=== PATIENT | male | born 1960 | race Asian ===

== ENCOUNTER 2023-07-11 08:05 | Inpatient (IN) | payer OTHER, SELFPAY ==
[2023-07-09 22:26] VITALS: BMI 29.3
[2023-07-09 22:36] VITALS: BP 178/108
[2023-07-09 22:40] LABS: Glucose - Point of Care 107 mg/dl (70-99)
[2023-07-09 22:53] VITALS: BP 155/89
[2023-07-09 23:00] VITALS: BP 143/87
[2023-07-09 23:00] LABS: % Basophils 0.5 % (0-2); % Eosinophils 1.6 % (0-6); % Immature Granulocytes 0.1 % (0-0.5); % Lymphocytes 32.7 % (20.5-51.1); % Monocytes 9.7 % (1.7-9.3); % Neutrophils 55.4 % (42.2-75.2); Absolute Eosinophils 0.1 10^3/uL (0-0.7); Absolute Lymphocytes 2.4 10^3/uL (1.2-3.4); Absolute Monocytes 0.7 10^3/uL (0.1-0.6); Absolute Neutrophils 4.1 10^3/uL (1.4-6.5); Hematocrit 46.7 % (39.0-52.0); Hemoglobin 15.8 g/dL (13.0-18.0); Mean Corp Hgb Conc. 33.8 g/dL (33.0-37.0); Mean Corpuscular Hgb 29.5 pg (27.0-31.0); Mean Corpuscular Volume 87.3 fL (80.0-94.0); Mean Platelet Volume 10.1 fL (7.4-10.4); Nucleated Red Blood Cells % 0 % (-); Platelet Count 258 10^3/uL (130-400); Red Blood Cell Count 5.35 10^6/uL (4.70-6.10); Red Cell Dist. Width 13.5 % (11.5-14.5); White Blood Cell Count 7.3 10^3/uL (4.8-10.8)
--- NOTE | 2023-07-09 23:06 | ED.CVA ---
History of Present Illness
General
Chief Complaint: CVA/TIA Symptoms
Source: patient
Exam Limitations: none
Time Seen by Provider: 07/09/23 22:31
Nursing documentation reviewed up to this point in time: agreed with
Onset of Stroke Symptoms
Onset of symptoms known: Yes
Date of onset of symptoms: 07/09/23
Time of onset of symptoms: 09:00
Travel History
Have you had any contact with someone who has COVID-19?: No
Do you have any symptoms of coronavirus? Fever > 100 degrees, chills, cough, shortness of breath, sore throat, loss of taste or smell, muscle aches, or headache?: No
History of Present Illness
History of Present Illness:
Patient with history of 'kidney problem', presents to ED after waking up this morning at 9 AM with right arm and right leg weakness. This evening, weakness appeared to worsen, per family. Of note, patient reportedly did not 'feel well' since
yesterday. Denies headache. Denies dizziness. Denies loss of sensation. Denies difficulty with speech. Denies difficulty with swallowing. Denies previous history of similar symptoms.
Review of Systems
Review of Systems
Allergies reviewed?: Yes
All Other Systems: ROS reviewed and negative except as documented in HPI and ROS
Constitutional: Reports no symptoms
EENT: Reports no symptoms
Respiratory: Reports no symptoms
Cardiac: Reports no symptoms
ABD/GI: Reports no symptoms
: Reports no symptoms
Musculoskeletal: Reports no symptoms
Skin: Reports no symptoms
Neurological: Reports weakness; Denies headache
Phy Exam
Physical Exam
Physical Exam:
Physical Exam
General: mild distress, not acutely ill. afebrile
Head: nc/at. eomi
Neck: supple. no meningeal signs.
Heart: s1/s2 regular rate and rhythm, no murmur. equal radial pulses.
Lungs: no acute respiratory distress. clear bilaterally
Abdomen: normal bowel sounds. not tender.
Neuro: alert and oriented. no focal sensory deficit. RUE/RLE motor: 4/5. normal speech.
Skin: no rash
Psychiatric: well kept. interactive and cooperative
Extremities: no edema. no calf tenderness.
Course
Orders/Labs/Results
Orders:
Orders
07/09/23 22:30
Electrocardiogram (*1) Urgent
Reason for Study: Other
Other Reason for Exam: Possible Stroke
Bedside Glucose- Treatment ONCE
Cardiac Monitoring- Treatment ONCE
EKG- Treatment ONCE
07/09/23 22:39
CT Head W/o Iv Contrast Urgent
Comment:
Reason For Exam: right UE/LE weakness
07/09/23 22:44
Complete Blood Count/With Diff Urgent
Comprehensive Metabolic Panel Urgent
PTT Urgent
Prothrombin Time Urgent
Troponin I Urgent
07/09/23 23:05
Aspirin Chewable [Low Strength Aspirin] 324 mg PO NOW STA
Clopidogrel Bisulfate [Plavix] 300 mg PO NOW STA
Abnormal Lab Results
07/09/23 07/09/23
22:37 22:44
Absolute Monos (auto) 0.7 H 10^3/uL
(0.1-0.6)
Monocytes % 9.7 H %
(1.7-9.3)
BUN 29 H mg/dl
(9-20)
Creatinine 1.8 H mg/dL
(0.7-1.3)
Glucose 113 H mg/dl
(70-99)
POC Glucose 107 H mg/dl
(70-99)
07/09/23 22:44
07/09/23 22:44
Vital Signs
Initial and Last Documented VS:
Initial Vital Signs
Temp Pulse Resp BP Pulse Ox
98.2 F 75 18 178/108 99
07/09/23 22:36 07/09/23 22:36 07/09/23 22:36 07/09/23 22:36 07/09/23 22:36
Last Documented Vital Signs
Temp Pulse Resp BP Pulse Ox
98.2 F 66 22 157/97 97
07/09/23 22:36 07/10/23 01:04 07/10/23 01:04 07/10/23 01:04 07/10/23 01:00
MDM/Problems Addressed
MDM/Problems Addressed:
CT head: NAD.
Discussed with (neurology) - agrees with plan for admission for further workup. Starting asa/plavix
CTA head/neck deferred due to CRI.
*Critical Care Note
Total Time (30-74mins, 75-104mins- exclusive of procedures): Not Applicable
ED Attending Note
-
Portions of this chart may have been created with voice recognition software.� Occasional wrong word or��sound alike� substitutions may have occurred due to the inherent limitations of voice recognition software.
Discharge Plan
Departure
Patient Disposition: Admit
Date of Disposition: 07/09/23
Time of Disposition: 23:22
Admit to: Telemetry
Presentation/result/management discussed w/ accepting MD/DO: Hospitalist
Discharge Problem:
Acute CVA (cerebrovascular accident)
Interventions
Interventions:
*Risk Screen - Suicide Last Done: 07/09/23 22:36
*General Assessment Last Done: 07/09/23 22:36
*Neglect/Abuse Screening Last Done: 07/09/23 22:36
ED- Fall Risk Assessment Last Done: 07/09/23 22:45
ED- Pulmonary Assessment Last Done: 07/09/23 22:45
ED- Neurological Assessment Last Done: 07/09/23 22:45
ED- Cardiac Assessment Last Done: 07/09/23 22:45
ED Swallowing Screen Last Done: 07/09/23 23:25
[2023-07-09 23:11] LABS: APTT 31.6 Sec (23.4-35.0)
[2023-07-09 23:15] LABS: ALT (SGPT) 22 U/L (0-50); AST (SGOT) 27 U/L (17-59); Albumin 4.5 g/dl (3.5-5.0); Alkaline Phosphatase 108 U/L (38-126); Blood Urea Nitrogen 29 mg/dl (9-20); Calcium 9.9 mg/dl (8.4-10.2); Carbon Dioxide 24 mmol/L (22-30); Chloride 105 mmol/L (98-107); Estimated Creatinine Clearance 35 ml/min; Glucose 113 mg/dl (70-99); Potassium 4.5 mmol/L (3.5-5.1); Sodium 140 mmol/L (135-145); Total Bilirubin 0.5 mg/dl (0.2-1.3); Total Protein 8.2 g/dl (6.3-8.2); eGFR 41.51
[2023-07-09 23:25] LABS: Troponin I < 0.012 ng/ml
[2023-07-09] MEDS: PLAVIX 300 MG PO (23:29)
[2023-07-09] MEDS: LOW STRENGTH ASPIRIN 324 MG PO (23:29)
--- NOTE | 2023-07-09 23:51 | HPS.HSE ---
Addendum entered and electronically signed by Terell Duval DO 07/10/23 01:02:
Patient seen and examined independently. Agree with findings and plan as set forth by Inocencia Gutiérrez PA-C.
Patient is a 63y M with PMH significant for hypertension who presents to ED complaining of R sided weakness. History obtained from patient and family at the bedside. Patient woke this AM with right-sided weakness. He noted weakness in the R
arm > R leg. His symptoms seemed to gradually improve throughout the day but then got worse again this evening prompting patient to present to the ED for further evaluation and treatment.
Patient has no prior history of TX, CVA, etc.
Ass:
Suspected CVA
Essential Hypertension
CKD
Plan:
Observe overnight for further evaluation and treatment.
Persistent R sided weakness evident on exam - especially in the RUE.
Continue DAPT.
Neuro evaluation in the AM.
MRI brain in the AM.
Follow for any changes in neurologic exam.
Original Note:
Family Physician
-
Family Physician: * NONE
Chief Complaint
-
Right Sided Weakness
History of Present Illness
This is a 63- year- male recently moved to the 7 months ago with a past medical history of hypertension who presented for CVA/ TIA symptoms X 1 day. He presents with daughter and son in law who provide majority of the history due to language
barrier. Family states that patient was 'feeling off' yesterday. Per son-in- law, patient woke up around 9 am this morning with right sided upper and lower extremity weakness. Son-in- law states that the weakness got better around the afternoon, but
progressed in the evening, prompting their visit to the ED. Patient's daughter denies any known history of TX or prior CVA.
Medical History
Past Medical History
Past Medical History: Reports Other
Additional Past Medical History:
Chronic Kidney Disease
Gout
Past Surgical History: Reports None
Social History
Tobacco: Former Smoker (Quit many years ago)
Family History
Family History: Not pertinent
Allergies / Home Medications
Allergies reflects when Allergies were last updated in [facility].
Home Medications with original date entered in [facility]
Allergy/Medication List:
Allergies
Allergy/AdvReac Type Severity Reaction Status Date / Time
No Known Allergies Allergy Verified 07/09/23 23:10
Home Medications
calcitriol 0.25 mcg capsule 0.25 mcg PO DAILY 07/09/23
calcium carbonate 500 mg-vitamin D3 5 mcg (200 unit) tablet (Calcium 500 + D) 1 tab PO DAILY 07/09/23
febuxostat 40 mg tablet 40 mg PO DAILY 07/09/23
telmisartan 40 mg-amlodipine 5 mg tablet 1 tab PO DAILY 07/09/23
Review of Systems
-
Unable to obtain full review of systems at this time due to: Language Barrier
Physical Exam
Vital Signs
Vital Signs
Temp Pulse Resp BP Pulse Ox
98.2 F 71 15 143/87 96
07/09/23 22:36 07/09/23 23:30 07/09/23 23:30 07/09/23 23:00 07/09/23 23:30
Physical Exam
General: Comfortable and Conversant
HEENT: Anicteric and Moist mucous membranes
Respiratory: Clear and Non Labored Respirations
Cardiac: S1/S2 and Regular Rhythm
GI: Soft and Non Tender
Musculoskeletal: No Clubbing, No Cyanosis and No Edema
Skin: Warm and Dry
Neuro: Awake, Alert and Other (4/5 Strength Right Upper Extremity); No Facial Droop
Psych: Calm
Laboratory Results
-
07/09/23 22:44
07/09/23 22:44
Laboratory Results
PT 13.0 Sec (11.4-14.6) 07/09/23:44
INR 1.00 07/09/23:
APTT 31.6 Sec (23.4-35.0) 07/09/23:
Total Bilirubin 0.5 mg/dl (0.2-1.3) 07/09/23:44
AST 27 U/L (17-59) 07/09/23:44
ALT 22 U/L (0-50) 07/09/23:44
Alkaline Phosphatase 108 U/L (38-126) 07/09/23:44
Troponin I < 0.012 ng/ml 07/09/23:44
Data Reviewed
-
CT Scan: Report Reviewed by me
Lab Data: Labs Reviewed by me
Impression/Plan
-
Right Sided Weakness, concerning for Acute Stroke
-Consult Neurology
-Continue aspirin and Plavix
-Monitor Neurochecks
-Check Brain MRI with Head/Neck MRA
-Check FLP and HgbA1c
-Consult PT/OT
Essential Hypertension
-Allow for permissive hypertension tonight, then goal for normotension starting tomorrow morning
-Continue telmisartan/amlodipine
Chronic Kidney Disease, suspect creatinine at baseline
-Recheck labs in AM
DVT proph: SCDs
Code Status: Full Code
[2023-07-10] VITALS (13 sets, daily range): BP systolic 99–167; BP diastolic 69–101; PULSE 82–84; BMI 25.0
[2023-07-10 05:43] LABS: Hemoglobin 14.2 g/dL (13.0-18.0); Mean Corp Hgb Conc. 33.8 g/dL (33.0-37.0); Mean Corpuscular Hgb 29.5 pg (27.0-31.0); Mean Corpuscular Volume 87.1 fL (80.0-94.0); Mean Platelet Volume 9.9 fL (7.4-10.4); Platelet Count 243 10^3/uL (130-400); Red Blood Cell Count 4.82 10^6/uL (4.70-6.10); Red Cell Dist. Width 13.4 % (11.5-14.5); White Blood Cell Count 8.1 10^3/uL (4.8-10.8)
[2023-07-10 05:58] LABS: Blood Urea Nitrogen 30 mg/dl (9-20); Calcium 9.4 mg/dl (8.4-10.2); Carbon Dioxide 25 mmol/L (22-30); Chloride 107 mmol/L (98-107); Estimated Creatinine Clearance 35 ml/min; Glucose 110 mg/dl (70-99); HDL Cholesterol 37 mg/dl; LDL Cholesterol, Calculated 168 mg/dl; Magnesium 2.1 mg/dl (1.6-2.3); Potassium 4.2 mmol/L (3.5-5.1); Sodium 140 mmol/L (135-145); Total Cholesterol 253 mg/dl (50-199); Triglyceride 244 mg/dl (10-149); Very Low Density Lipoprotein 48 mg/dl (0-30); eGFR 41.51
[2023-07-10] MEDS: ROCALTROL 0.25 MCG PO (08:27)
[2023-07-10] MEDS: LOW STRENGTH ASPIRIN 81 MG PO (08:27)
[2023-07-10] MEDS: PLAVIX 75 MG PO (08:28)
[2023-07-10] MEDS: ULORIC 40 MG PO (08:28)
[2023-07-10] MEDS: NORVASC 5 MG PO (08:29)
[2023-07-10] MEDS: COZAAR 50 MG PO (08:30)
[2023-07-10] MEDS: TYLENOL 650 MG PO (08:34)
--- NOTE | 2023-07-10 08:44 | CON.NEURO4 ---
Addendum entered and electronically signed by Ravin Carpio MD 07/10/23 15:21:
Studies reviewed.
I have personally examined the patient. I reviewed and agree with the VENDING MACHINE SERVICER's Note.
My addenda:
Awake, alert, interactive. No acute distress.
Speech intact.
Follows 2-step requests w/o difficulty. No tremor.
Extra-ocular movements grossly intact.
Facial movements full and symmetric. Hearing intact to normal conversational volume.
Neck: full ROM.
Chest: no dyspnea
Heart: no JVD
Ext: (-) Clubbing, (-) Cyanosis, (-) Edema
IMPRESSIONS/RECOMMENDATIONS:
Abrupt onset of neck pain with right upper and right lower extremity weakness and discomfort
Differential diagnosis includes mass lesion at the cervical level of the spine, transverse myelitis, hemicord ischemic injury, stroke in the left MCA territory
Check MRI of the cervical spine, today, with and without contrast
Check MRI of the brain without contrast
Rehabilitation evaluations
Consider additional vascular testing based on the above results
Goal of normotension as symptomatology began more than 24 hours ago
Provide cholesterol-lowering agent due to the patient's elevated cholesterol
D/W patient
All questions answered.
Will continue to follow patient.
Original Note:
Documented by User: Clara Barajas NP 07/10/23 12:33
Consultation - Neurology 4
-
CONSULTING PHYSICIAN: Ravin Carpio MD
REFERRING PHYSICIAN: Hospitalists/Inocencia Gutiérrez
DICTATED BY: ELIDA Barnard
DATE/TIME OF REQUEST: 07/09/23
DATE/TIME OF CONSULTATION: 07/10/23
Reason for Consultation: Right-sided weakness
History of Present Illness:
This is a 63-year-old right-handed male who has presented to the hospital on 07/09/23 with report of right-sided weakness. Patient's primary language is Etta and video geoscience professor was used for this interview. Patient reports that about 4-5 days ago
he developed right lower posterior neck pain and right shoulder pain that radiated down his entire arm and then down his RLE after several minutes. He describes the pain as an aching and rates it a 4-5/10. He reports having right-sided weakness
since the onset of this pain. The weakness has been fluctuating in severity since onset. His symptoms had improved during the day yesterday but then worsened again last evening, prompting his family to bring him to the ER for evaluation. CT head was
obtained on arrival to the ER and is negative for any acute abnormalities. NIHSS is a 2 for RUE drift and mild sensation change. He was not a candidate for TNK/IAT due to being outside of the time window. He was loaded with DAPT in the ER.
Currently, patient's symptoms are persistent, his biggest complaint is his neck and right-sided pain. He denies any headache, dizziness, vision changes, speech/swallow difficulty, bowel/bladder changes, nausea, chest pain, palpitations, and
shortness of breath. He denies any history of head/neck trauma or pain/weakness like this in the past. He denies any history of TIA and stroke and he is not taking any blood thinning medications.
Past Medical History: HTN, CKD, gout
Surgical History: Denies.
Family History: Reviewed and noncontributory.
Social History: Former tobacco. Denies alcohol and illicit drug use.
Allergies: No known allergies.
Home Medications: See below.
Review of Symptoms:
Patient denies any fever, headache, chest pain, shortness of breath, GI or symptoms.
�Per the HPI.�All systems are reviewed negative except above.
Physical Exam:
The patient is afebrile, abdomen is nondistended, breathing is unlabored, skin is warm and dry, no edema. Clubbing in fingertips
NIH Stroke Scale:
I performed the NIH stroke scale on the patient on 07/10/23 at 0900. The patient scored 2 points on the NIH stroke scale assessment, which were assigned as follows: See below.
Neurologic Examination:
The patient is awake, alert and oriented x 3. He is able to follow commands and answer questions appropriately. There is no aphasia or dysarthria. On cranial nerve assessment, pupils are 3 mm bilateral, round and reactive to light and
accommodation. Mild arcus senilis. Visual stubbs are full. Extraocular movements are intact. Facial sensations are intact and bilaterally symmetrical, there is no facial asymmetry. Hearing is intact bilaterally to normal conversation volume. Tongue
palate and uvula are midline. Motor strengths are 4+/5 RUE, 5/5 LUE, and 4+/5 BLE on medical research [place] scale. There is downward drift in RUE. No involuntary movement noted. Deep tendon reflexes are 2+ bilateral upper and 2+ right patellar, 3+
LLE and one beat of clonus in bilateral Achilles. Babinski is absent bilaterally. Sensations of temperature and pain is mildly reduced in distal bilateral lower extremities. Sensation of pain is mildly reduced in distal RUE. Pain is greater in R
face than L face. Vibration is intact and bilaterally symmetrical. Negative Mahoney's sign. There was no extinction noted on double simultaneous stimulation. Coordination is intact by finger to nose bilaterally.
Lab Results: See below.
Neuro Imaging:
1. CT Head 07/09/23: There is no acute intracranial process. Low-lying cerebellar tonsils.
Differentials for the patient's presentation include:
1. Concern for structural cervical spine abnormality producing pain and weakness especially given hyperreflexia noted on examination.
2. Lower concern for CVA producing symptoms but this is possible.
3. New diagnosis NIDDM.
Patient has the following risk factors for their symptoms: neck pain
IV Tenecteplase/IAT candidacy: He was not a candidate for TNK/IAT due to being outside of the time window.
Recommendations:
-MRI cervical spine w/ and w/o contrast urgent, pending.
-MRI brain noncontrast pending.
-MRA head/neck discontinued for now, will re-order if MRI brain demonstrates a stroke.
-Initiate pregabalin 25mg BID for pain relief.
-Goal normotension.
-Goal normoglycemia, hbA1c is 6.8.
-LDL goal <70. LDL is 168. Atorvastatin 80mg initiated.
-NIHSS and neurological checks per unit guidelines.
-Provide patient with a stroke education packet.
-PT/OT/ST evaluations.
-DVT prophylaxis.
-Will follow pending results.
Discussed patient care with: Dr. Carpio, the patient
Vital Signs and Labs
-
Vital Signs and Labs:
Vital Signs
Temp Pulse Resp BP Pulse Ox
97.7 F 67 12 119/91 97
07/10/23 07:15 07/10/23 08:30 07/10/23 08:15 07/10/23 08:30 07/10/23 08:15
Lab Results
07/10/23 05:24
07/10/23 05:24
PT 13.0 Sec (11.4-14.6) 07/09/23 22:44
INR 1.00 07/09/23 22:44
APTT 31.6 Sec (23.4-35.0) 07/09/23 22:44
Sodium 140 mmol/L (135-145) 07/10/23 05:24
Potassium 4.2 mmol/L (3.5-5.1) 07/10/23 05:24
BUN 30 mg/dl (9-20) H 07/10/23 05:24
Glucose 110 mg/dl (70-99) H 07/10/23 05:24
Calcium 9.4 mg/dl (8.4-10.2) 07/10/23 05:24
LDL Cholesterol, Calc 168 mg/dl 07/10/23 05:24
Medications
-
Active Medications
Generic Name Dose Route Start Last Admin
Trade Name Freq PRN Reason Stop Dose Admin
Acetaminophen 650 mg 07/10/23 00:43
Acetaminophen 650 Mg Rectal Suppository RECTAL 08/07/23 00:42
Q4HPRN PRN
ESCOBAR, mild pain, or temp >100.4F
Acetaminophen 650 mg 07/10/23 00:43 07/10/23 08:34
Acetaminophen 325 Mg Tablet PO 08/07/23 00:42 650 mg
Q4HPRN PRN Administration
ESCOBAR, mild pain, or temp >100.4F
Amlodipine Besylate 5 mg 07/10/23 08:00 07/10/23 08:29
Amlodipine 5 Mg Tablet PO 08/07/23 07:59 5 mg
DAILY PILY Administration
Aspirin 81 mg 07/10/23 08:00 07/10/23 08:27
Aspirin 81 Mg Chewable Tablet PO 08/07/23 07:59 81 mg
DAILY PILY Administration
Atorvastatin Calcium 80 mg 07/10/23 18:00
Atorvastatin (Lipitor) 40 Mg Tablet PO 08/07/23 17:59
QPM PILY
Calcitriol 0.25 mcg 07/10/23 08:00 07/10/23 08:27
Calcitriol 0.25 Microgram Capsule PO 08/07/23 07:59 0.25 mcg
DAILY PILY Administration
Clopidogrel Bisulfate 75 mg 07/10/23 08:00 07/10/23 08:28
Clopidogrel 75 Mg Tablet PO 08/07/23 07:59 75 mg
DAILY PILY Administration
Febuxostat 40 mg 07/10/23 08:00 07/10/23 08:28
Febuxostat (Non-Form) 40 Mg Tablet PO 08/07/23 07:59 40 mg
DAILY PILY Administration
Losartan Potassium 50 mg 07/10/23 08:00 07/10/23 08:30
Losartan 50 Mg Tablet PO 08/07/23 07:59 50 mg
DAILY PILY Administration
Sodium Chloride 0 flush 07/10/23 01:00
Sodium Chloride 0.9% (Flush) Syringe IV 08/07/23 00:59
PER PROTOCOL PILY
Home Medications
�Medication �Instructions �Recorded
calcitriol 0.25 mcg capsule 0.25 mcg PO DAILY 07/09/23
calcium carbonate 500 mg-vitamin 1 tab PO DAILY 07/09/23
D3 5 mcg (200 unit) tablet
(Calcium 500 + D)
febuxostat 40 mg tablet 40 mg PO DAILY 07/09/23
telmisartan 40 mg-amlodipine 5 mg 1 tab PO DAILY 07/09/23
tablet
NIH Stroke Score
Subsequent NIH Scale
Date of Subsequent NIH Scale: 07/10/23
Time of Subsequent NIH Scale: 09:00
NIH Stroke Score
Level of Consciousness: 0 - Alert
LOC Questions: 0-Answers both correctly
LOC Commands: 0-Performs both correctly
Best Horizontal Gaze: 0-Normal
Visual Stubbs: 0=Normal, no visual loss
Facial Palsy: 0=Normal, symmetrical
Motor - Right Arm: 1=Drift < 10 seconds
Motor - Left Arm: 0=No drift 10 seconds
Motor - Right Le-No drift 5 seconds
Motor - Left Le-No drift 5 seconds
Limb Ataxia: 0-Absent
Sensation: 1-Mild loss
Best Language: 0-No aphasia
Dysarthria: 0-Normal
Extinction and Inattention: 0-No abnormality
Total Score:: 2

Documented by User: Ravin Carpio MD 07/10/23 15:17
Consultation - Neurology 4
-
CONSULTING PHYSICIAN: Ravin Carpio MD
REFERRING PHYSICIAN: Hospitalists/Inocencia Gutiérrez
DICTATED BY: ELIDA Barnard
DATE/TIME OF REQUEST: 07/09/23
DATE/TIME OF CONSULTATION: 07/10/23
Reason for Consultation: Right-sided weakness
History of Present Illness:
This is a 63-year-old right-handed male who has presented to the hospital on 07/09/23 with report of right-sided weakness. Patient's primary language is Etta and video geoscience professor was used for this interview. Patient reports that about 4-5 days ago
he developed right lower posterior neck pain and right shoulder pain that radiated down his entire arm and then down his RLE after several minutes. He describes the pain as an aching and rates it a 4-5/10. He reports having right-sided weakness
since the onset of this pain. The weakness has been fluctuating in severity since onset. His symptoms had improved during the day yesterday but then worsened again last evening, prompting his family to bring him to the ER for evaluation. CT head was
obtained on arrival to the ER and is negative for any acute abnormalities. NIHSS is a 2 for RUE drift and mild sensation change. He was not a candidate for TNK/IAT due to being outside of the time window. He was loaded with DAPT in the ER.
Currently, patient's symptoms are persistent, his biggest complaint is his neck and right-sided pain. He denies any headache, dizziness, vision changes, speech/swallow difficulty, bowel/bladder changes, nausea, chest pain, palpitations, and
shortness of breath. He denies any history of head/neck trauma or pain/weakness like this in the past. He denies any history of TIA and stroke and he is not taking any blood thinning medications.
Past Medical History: HTN, CKD, gout
Surgical History: Denies.
Family History: Reviewed and noncontributory.
Social History: Former tobacco. Denies alcohol and illicit drug use.
Allergies: No known allergies.
Home Medications: See below.
Review of Symptoms:
Patient denies any fever, headache, chest pain, shortness of breath, GI or symptoms.
�Per the HPI.�All systems are reviewed negative except above.
Physical Exam:
The patient is afebrile, abdomen is nondistended, breathing is unlabored, skin is warm and dry, no edema. Clubbing in fingertips
NIH Stroke Scale:
I performed the NIH stroke scale on the patient on 07/10/23 at 0900. The patient scored 2 points on the NIH stroke scale assessment, which were assigned as follows: See below.
Neurologic Examination:
The patient is awake, alert and oriented x 3. He is able to follow commands and answer questions appropriately. There is no aphasia or dysarthria. On cranial nerve assessment, pupils are 3 mm bilateral, round and reactive to light and
accommodation. Mild arcus senilis. Visual stubbs are full. Extraocular movements are intact. Facial sensations are intact and bilaterally symmetrical, there is no facial asymmetry. Hearing is intact bilaterally to normal conversation volume. Tongue
palate and uvula are midline. Motor strengths are 4+/5 RUE, 5/5 LUE, and 4+/5 BLE on medical research [place] scale. There is downward drift in RUE. No involuntary movement noted. Deep tendon reflexes are 2+ bilateral upper and 2+ right patellar, 3+
LLE and one beat of clonus in bilateral Achilles. Babinski is absent bilaterally. Sensations of temperature and pain is mildly reduced in distal bilateral lower extremities. Sensation of pain is mildly reduced in distal RUE. Pain is greater in R
face than L face. Vibration is intact and bilaterally symmetrical. Negative Mahoney's sign. There was no extinction noted on double simultaneous stimulation. Coordination is intact by finger to nose bilaterally.
Lab Results: See below.
Neuro Imaging:
1. CT Head 07/09/23: There is no acute intracranial process. Low-lying cerebellar tonsils.
Differentials for the patient's presentation include:
1. Concern for structural cervical spine abnormality producing pain and weakness especially given hyperreflexia noted on examination.
2. Lower concern for CVA producing symptoms but this is possible.
3. New diagnosis NIDDM.
Patient has the following risk factors for their symptoms: neck pain
IV Tenecteplase/IAT candidacy: He was not a candidate for TNK/IAT due to being outside of the time window.
Recommendations:
-MRI cervical spine w/ and w/o contrast urgent, pending.
-MRI brain noncontrast pending.
-MRA head/neck discontinued for now, will re-order if MRI brain demonstrates a stroke.
-Initiate pregabalin 25mg BID for pain relief.
-Goal normotension.
-Goal normoglycemia, hbA1c is 6.8.
-LDL goal <70. LDL is 168. Atorvastatin 80mg initiated.
-NIHSS and neurological checks per unit guidelines.
-Provide patient with a stroke education packet.
-PT/OT/ST evaluations.
-DVT prophylaxis.
-Will follow pending results.
Discussed patient care with: Dr. Carpio, the patient
NIH Stroke Score
NIH Stroke Score
Total Score:: 2
--- NOTE | 2023-07-10 09:43 | PTOTSP ---
Dysphagia Evaluation
Oral and pharyngeal stages of swallowing grossly WFL for consistencies assessed this date. No signs of aspiration observed.
Recommend:
1. Regular, Thin Liquids
2. Medications as best tolerated
3. General aspiration precautions
4. Complete cognitive linguistic screen as appropriate pending results of neurological work up.
[2023-07-10 10:09] LABS: Glycohemoglobin (HgbA1c) 6.8 % (4.0-5.6)
[2023-07-10] MEDS: LYRICA 25 MG PO ×2 (11:10→20:53)
--- NOTE | 2023-07-10 12:59 | W.PN.HOSP.TC ---
Today's Communication/Plan
-
await MRI imaging
diabetic education and start Metformin
Assessment / Plan
Assessment / Plan
Assessment:
RUE weakness, neck pain
- urgent C spine MRI
- MRI brain
- consider MRA imaging if MRI brain positive for CVA
- continue DAPT for now
- Lyrica 25mg BID for pain relief
- HbA1c is 6.8% (see below)
- LDL is 168; statin added
- neuro checks
- therapy evals recommend acute rehab, PMR consulted
New diagnosed type 2 DM
- dietary eval and staff development educator
- add SSI
- add Metformin renally dosed
Essential Hypertension
- continue telmisartan/amlodipine
Chronic Kidney Disease, stage 3B. suspect creatinine at baseline
- monitor BMP
DVT ppx: SCDs
Code: Full
Anticipated Discharge: 24 - 48 hours
Subjective/Interval History
-
Date of Service: July 10, 2023
currently complaints of R sided weakness along with lower posterior neck pain and shoulder pain 4-5 days ago
No other complaints
Objective Data
-
Labs:
Laboratory Results
07/10/23
05:24
WBC 8.1
Hgb 14.2
Hct 42.0
Plt Count 243
Sodium 140
Potassium 4.2
Chloride 107
Carbon Dioxide 25
BUN 30 H
Creatinine 1.8 H
Glucose 110 H
Calcium 9.4
Vital Signs:
Vital Signs
Temp Pulse Resp BP Pulse Ox
97.7 F 89 18 119/91 96
07/10/23 11:26 07/10/23 11:26 07/10/23 11:26 07/10/23 08:30 07/10/23 11:26
I&O
07/09/23 07/10/23 07/11/23
06:59 06:59 06:59
Intake Total 470 / 470
Balance 470 / 470
Physical Exam
-
General: No Apparent Distress
HEENT: Normocephalic and Atraumatic
Respiratory: Negative Wheezes
Cardiac: Regular Rhythm and S1/S2
GI: Soft and Nontender
Genito-urinary: No Costovertebral Tender
Musculoskeletal: Other
Neuro: AO x 3 and Other (Motor strengths are 4+/5 RUE, 5/5 LUE, and 4+/5 BLE)
Hematologic / Lymphatic: No Lymphadenopathy
Psych: Calm
Data Reviewed
-
Total Time Spent with Patient (in minutes): 42
Labs: Labs Reviewed by me
--- NOTE | 2023-07-10 16:08 | PTCARENOTE ---
report called to RICHARDSON Brown on . PT being picked up by ED RICHARDSON Loo and being to be transported to floor from MRI.
[2023-07-10 16:54] LABS: Glucose - Point of Care 104 mg/dl (70-99)
[2023-07-10] MEDS: NOVOLOG FLEXPEN-LOW RESISTANCE SC (17:02)
[2023-07-10] MEDS: LIPITOR 80 MG PO (17:15)
[2023-07-10] MEDS: GLUCOPHAGE 500 MG PO (17:15)
--- NOTE | 2023-07-10 20:00 | PTCARENOTE ---
Pt's daughter wants to be notify concerning pt condition and discharge plan by MD.
[2023-07-10 21:16] LABS: Glucose - Point of Care 112 mg/dl (70-99)
[2023-07-11 03:22] VITALS: BP 106/77
[2023-07-11 07:24] LABS: Hemoglobin 14.6 g/dL (13.0-18.0); Mean Corp Hgb Conc. 33.2 g/dL (33.0-37.0); Mean Corpuscular Hgb 29.3 pg (27.0-31.0); Mean Corpuscular Volume 88.4 fL (80.0-94.0); Platelet Count 254 10^3/uL (130-400); Red Blood Cell Count 4.98 10^6/uL (4.70-6.10); Red Cell Dist. Width 13.6 % (11.5-14.5); White Blood Cell Count 7.4 10^3/uL (4.8-10.8)
[2023-07-11 07:45] LABS: Blood Urea Nitrogen 40 mg/dl (9-20); Calcium 9.6 mg/dl (8.4-10.2); Carbon Dioxide 23 mmol/L (22-30); Chloride 104 mmol/L (98-107); Estimated Creatinine Clearance 28 ml/min; Glucose 123 mg/dl (70-99); Potassium 4.4 mmol/L (3.5-5.1); Sodium 139 mmol/L (135-145); eGFR 29.39
[2023-07-11 08:20] VITALS: BP 141/89
--- NOTE | 2023-07-11 08:42 | W.PN.HOSP.TC ---
Today's Communication/Plan
-
MRA studies and echo
cards eval for implantable monitor
continue DAPT
continue MFM; diabetic education
ANNA w/u, hold ARB, IVF, repeat AM labs
rehab evaluations, PMR eval
Assessment / Plan
Assessment / Plan
Assessment:
RUE weakness
- MRI brain: MANY ACUTE ISCHEMIC INFARCTS in the LEFT CEREBRAL HEMISPHERE MIDDLE CEREBRAL ARTERY TERRITORY involving cortical roper matter in the left frontal lobe, left parietal lobe, and superior left occipital lobe (including a 2.5 cm acute
ischemic infarct in the left frontal lobe precentral gyrus). Mild to moderate white matter leukoaraiosis in the frontal and parietal lobes. Mild paranasal sinus mucosal disease.
- MRA imaging pending
- Echo pending
- continue Aspirin/Plavix
- HbA1c is 6.8% (see below)
- LDL is 168; statin added
- neuro checks
- therapy evals recommend acute rehab, PMR consulted
- Neurology following
- Cardiology consulted for evaluation of implantable monitor
Neck pain
- MRI C spine: MODERATE-SIZED MULTILEVEL DISC HERNIATIONS throughout the cervical spine. MODERATE SPINAL CORD COMPRESSION and CENTRAL CANAL STENOSIS at C3/C4, C4/C5, and C5/C6. Mild spinal cord compression and central canal stenosis at C2/C3.
Moderate discogenic degenerative disease at C5/C6. Severe right neural foraminal narrowing at C5/C6. Large 2.4 cm left lobe thyroid nodule.
- Lyrica 25mg BID for pain relief
- discussed results with Neurosurgery; they will evaluate patient outpatient as cannot consider surgery currently with acute CVA.
New diagnosed type 2 DM
- dietary eval and consumer educator
- continue SSI
- add Metformin renally dosed
Essential Hypertension
- continue amlodipine
- hold ARB with ANNA
ANNA on CKD, stage 3B
- monitor BMP; no baseline labs available
- bladder scan/SC protocol
- check UA, lytes
- hold ARB
- IVF added
DVT ppx: SCDs
Code: Full
d/w daughter and updated
Anticipated Discharge: 24 - 48 hours
Subjective/Interval History
-
Date of Service: July 11, 2023
found to have new acute CVA on MRI
Objective Data
-
Labs:
Laboratory Results
07/11/23
06:33
WBC 7.4
Hgb 14.6
Hct 44.0
Plt Count 254
Sodium 139
Potassium 4.4
Chloride 104
Carbon Dioxide 23
BUN 40 H
Creatinine 2.4 H
Glucose 123 H
Calcium 9.6
Vital Signs:
Vital Signs
Temp Pulse Resp BP Pulse Ox
97.7 F 75 18 141/89 97
07/11/23 08:20 07/11/23 08:20 07/11/23 08:20 07/11/23 08:20 07/11/23 08:20
I&O
07/10/23 07/11/23 07/12/23
06:59 06:59 06:59
Intake Total 910 / 910
Balance 910 / 910
Physical Exam
-
General: No Apparent Distress
HEENT: Normocephalic and Atraumatic
Respiratory: Negative Wheezes
Cardiac: Regular Rhythm
GI: Soft
Genito-urinary: No Costovertebral Tender
Neuro: AO x 3 and Other (RUE 4/5)
Data Reviewed
-
Total Time Spent with Patient (in minutes): 45
Labs: Labs Reviewed by me
[2023-07-11 08:50] LABS: Glucose - Point of Care 111 mg/dl (70-99)
[2023-07-11] MEDS: NOVOLOG FLEXPEN-LOW RESISTANCE SC ×3 (08:50→17:09)
[2023-07-11] MEDS: LOW STRENGTH ASPIRIN 81 MG PO (09:16)
[2023-07-11] MEDS: ROCALTROL 0.25 MCG PO (09:16)
[2023-07-11] MEDS: NORVASC 5 MG PO (09:16)
[2023-07-11] MEDS: COZAAR PO (09:17)
[2023-07-11] MEDS: ULORIC 40 MG PO (09:18)
[2023-07-11] MEDS: PLAVIX 75 MG PO (09:18)
[2023-07-11] MEDS: LYRICA 25 MG PO ×2 (09:19→19:44)
[2023-07-11] MEDS: LIDOCAINE 4% PATCH 1 PATCH TOPICAL (09:21)
[2023-07-11] MEDS: NSS 1000 IV (09:27)
--- NOTE | 2023-07-11 09:53 | W.PN.NEURO.1 ---
Today's Communication / Plan
-
Provide combination of aspirin and clopidogrel with resolution of the use of clopidogrel after 21 days, then aspirin alone, of note is that the patient is on day 5 of symptom onset
Continue newly started atorvastatin
Rehabilitation evaluations
Goal of normotension
Workup of the patient's renal insufficiency may be beneficial
Check MRA head and neck
Provide educational materials
DVT prophylaxis is necessary
Neuro Assessment/Plan
Assessment
Abrupt onset of neck pain with right upper and right lower extremity weakness and discomfort
Secondary to subacute ischemic stroke in the left MCA territory as demonstrated by MRI of brain
MRI of the cervical spine demonstrated no structural abnormalities producing symptomatology
Plan
Recommendations:
Provide combination of aspirin and clopidogrel with resolution of the use of clopidogrel after 21 days, then aspirin alone, of note is that the patient is on day 5 of symptom onset
Continue newly started atorvastatin
Rehabilitation evaluations
Goal of normotension
Workup of the patient's renal insufficiency may be beneficial
Check MRA head and neck
Provide educational materials
DVT prophylaxis is necessary
Will follow pending results. Please contact us with additional questions or issues.
Subjective/Objective
Subjective Data
Date of Service: July 11, 2023
Patient noted improvement in right upper and right lower extremity weakness
Objective Data
Vital Signs
Temp Pulse Resp BP Pulse Ox
36.5 C 75 18 141/89 97
07/11/23 08:20 07/11/23 09:16 07/11/23 08:20 07/11/23 09:16 07/11/23 08:20
Lab Results
07/11/23 06:33
07/11/23 06:33
PT 13.0 Sec (11.4-14.6) 07/09/23 22:44
INR 1.00 07/09/23 22:44
APTT 31.6 Sec (23.4-35.0) 07/09/23 22:44
Sodium 139 mmol/L (135-145) 07/11/23 06:33
Potassium 4.4 mmol/L (3.5-5.1) 07/11/23 06:33
BUN 40 mg/dl (9-20) H 07/11/23 06:33
Glucose 123 mg/dl (70-99) H 07/11/23 06:33
Calcium 9.6 mg/dl (8.4-10.2) 07/11/23 06:33
LDL Cholesterol, Calc 168 mg/dl 07/10/23 05:24
Patient Allergies
No Known Allergies Allergy (Verified 07/09/23 23:10)
Review of Systems
-
Unable to obtain full review of systems at this time due to: Language Barrier
History Source: Patient
All other systems: Reviewed and negative
Musculoskeletal: Neck Pain
Physical Exam
-
General: No Apparent Distress and Appears Stated Age
Eyes: Round OU, Loop Conjunctivae and No Ptosis
HEENT: Anicteric and Moist Mucous Membranes
Neck: Full Range of Motion
Respiratory: No Dyspnea
Cardiac: No JVD
GI: Non-distended
Skin: Unremarkable
Extremities: No Clubbing, No Cyanosis and No Edema
Psych: Intact Judgement/Insight
Extended Neurological Exam
Mood & Affect: Mood Unremarkable and Affect Unremarkable
Attention Span & Concentration: Awake, Alert, Interactive and No Difficulty with 2 Step Request
Memory: Unremarkable
Tremor: Hand Tremor Absent and Head Tremor Absent
Speech: Quality Unremarkable and Quantity Unremarkable
Cranial Nerve II: Left Eye: Pupillary Size Unremarkable and Visual Klein Grossly Intact
Cranial Nerve II: Right Eye: Pupillary Size Unremarkable and Visual Klein Grossly Intact
Cranial Nerves III, IV, : Extraocular Movement: Grossly Intact
Cranial Nerve VII: Facial Symmetry: Normal Facial Symmetry
Cranial Nerve VIII: Hearing: Unremarkable Hearing to Normal Conversational Volume
Muscle Strength, Overall: Reduced on Right (Upper extremity 5- out of 5, right lower extremity 5- out of 5)
Muscle Bulk & Tone: Bulk Unremarkable and Tone Unremarkable
Pronator Drift: No Drift in Upper Extremities
Coordination: [id number] Testing Unremarkable
Gait & Station: Unable to Assess
Data Reviewed
-
MRI Head: Report Reviewed and Image Reviewed
Labs: Report Reviewed
Reviewed with: Physician, Nurse Practioner and Patient
Old Records: Summarized
Past History
Past History
ED Past Medical History: CVA; Negative Renal failure (Renal insufficiency)
Social History
Tobacco: Non-smoker
Alcohol: None
Family History
Family History: Other (Reviewed and noncontributory)
Medications
-
Medications:
Generic Name Dose Route Start Last Admin
Trade Name Freq PRN Reason Stop Dose Admin
Acetaminophen 650 mg 07/10/23 00:43 07/10/23 08:34
Acetaminophen 325 Mg Tablet PO 08/07/23 00:42 650 mg
Q4HPRN PRN Administration
ESCOBAR, mild pain, or temp >100.4F
Amlodipine Besylate 5 mg 07/10/23 08:00 07/11/23 09:16
Amlodipine 5 Mg Tablet PO 08/07/23 07:59 5 mg
DAILY PILY Administration
Aspirin 81 mg 07/10/23 08:00 07/11/23 09:16
Aspirin 81 Mg Chewable Tablet PO 08/07/23 07:59 81 mg
DAILY PILY Administration
Atorvastatin Calcium 80 mg 07/10/23 18:00 07/10/23 17:15
Atorvastatin (Lipitor) 40 Mg Tablet PO 08/07/23 17:59 80 mg
QPM PILY Administration
Calcitriol 0.25 mcg 07/10/23 08:00 07/11/23 09:16
Calcitriol 0.25 Microgram Capsule PO 08/07/23 07:59 0.25 mcg
DAILY PILY Administration
Clopidogrel Bisulfate 75 mg 07/10/23 08:00 07/11/23 09:18
Clopidogrel 75 Mg Tablet PO 08/07/23 07:59 75 mg
DAILY PILY Administration
Dextrose 12.5 grams 07/10/23 13:06
Dextrose 50% (0.5 Grams/Ml) 50 Ml Syringe IV 08/07/23 13:05
[id number] PRN
hypoglycemia
Protocol
Febuxostat 40 mg 07/10/23 08:00 07/11/23 09:18
Febuxostat (Non-Form) 40 Mg Tablet PO 08/07/23 07:59 40 mg
DAILY PILY Administration
Glucagon 1 mg 07/10/23 13:06
Glucagon 1 Mg Vial IM 08/07/23 13:05
PRN PRN
hypoglycemia
Protocol
Sodium Chloride 1,000 mls @ 70 mls/hr 07/11/23 08:15 07/11/23 09:27
Nss IV 07/11/23 22:32 1,000 mls
.[id number] PILY Administration
Insulin Aspart 0 units 07/10/23 16:30 07/11/23 08:50
Insulin Aspart Low Resistance 300 Units/3 Ml Pen.Injctr SC 08/07/23 16:29 Not Given
AC PILY
Protocol
Lidocaine 1 patch 07/11/23 08:00 07/11/23 09:21
Lidocaine 4% Topical Patch TOPICAL 08/08/23 07:59 1 patch
DAILY PILY Administration
Losartan Potassium 50 mg 07/10/23 08:00 07/11/23 09:17
Losartan 50 Mg Tablet PO 08/07/23 07:59 Not Given
DAILY PILY
Metformin HCl 500 mg 07/10/23 18:00 07/10/23 17:15
Metformin 500 Mg Regular Release Tablet PO 08/07/23 17:59 500 mg
QPM PILY Administration
Patch Removal 0 patch 07/11/23 20:00
Remove Lidocaine Patch REMOVE 08/08/23 19:59
DAILY@2000 PILY
Pregabalin 25 mg 07/10/23 11:00 07/11/23 09:19
Pregabalin 25 Mg Capsule PO 08/07/23 10:59 25 mg
BID [facility] Administration
Sodium Chloride 0 flush 07/10/23 01:00
Sodium Chloride 0.9% (Flush) Syringe IV 08/07/23 00:59
PER PROTOCOL [facility]
--- NOTE | 2023-07-11 10:23 | CON.CAR ---
Addendum entered and electronically signed by Mamadou Palomares MD 07/11/23 11:25:
I saw and examined the patient.
The CHEMICAL RECLAMATION EQUIPMENT OPERATOR's note was reviewed and I agree with the note.
Comment: 63M with hypertension and new onset DM admitted with subacute ischemic stroke in the left MCA territory. We are asked to place ILR.
- TTE today shows normal LVEF, no sig valve disease, and no shunt physiology (including bubble study)
- Tele with short SVT
- ILR in AM, but will ask EP to review tele before then (clear AF would give us our answer without ILR)
Original Note:
Consultation
Consultation Request
Date/Time Consultation Requested: 07/11/23820
Date/Time Consultation Performed: 07/11/23 09
Requesting Provider: Dr. Quiles
Performing Provider: Janet MARRERO for Dr. Palomares
Reason for Consultation: strokes
Medical History
-
Chief Complaint: right-sided weakness
History of Present Illness:
63 y/o male (Etta-speaking) with hypertension and CKD who is here for evaluation of right-sided weakness. MRI imaging has revealed strokes ('many acute ischemic infarcts in left cerebral hemisphere middle cerebral artery territory). Neurology
requesting implantable loop recorder. Patient denies any cardiac history or symptoms. [place] speaking senior medical director in room helped translate and patient and I were able to communicate effectively.
Past Medical History
Past Medical History: HTN and Other (CKD)
Social History
Tobacco: Former Smoker
Allergies / Home Medications
Allergy/AdvReac Type Severity Reaction Status Date / Time
No Known Allergies Allergy Verified 07/09/23 23:10
�Medication �Instructions �Recorded �Confirmed �Type
calcitriol 0.25 mcg capsule 0.25 mcg PO DAILY Kidney Disease 07/09/23 07/09/23 History
calcium carbonate 500 mg-vitamin 1 tab PO DAILY Supplement 07/09/23 07/09/23 History
D3 5 mcg (200 unit) tablet
(Calcium 500 + D)
febuxostat 40 mg tablet 40 mg PO DAILY Gout 07/09/23 07/09/23 History
telmisartan 40 mg-amlodipine 5 mg 1 tab PO DAILY Blood Pressure 07/09/23 07/09/23 History
tablet
Review of Systems
-
History Source: Patient
All other systems: Negative unless noted
Neurological: Weakness (right-sided - improving)
Physical Exam
Vital Signs
Temp Pulse Resp BP Pulse Ox
97.7 F 75 18 141/89 97
07/11/23 08:20 07/11/23 09:16 07/11/23 08:20 07/11/23 09:16 07/11/23 09:30
Lab Results
07/11/23 06:33
07/11/23 06:33
Troponin I < 0.012 ng/ml 07/09/23 22:44
Physical Exam
General: Well Developed, Well Nourished and No Apparent Distress
HEENT: Normocephalic and Anicteric
Respiratory: Clear and Non Labored Respirations
Cardiac: Regular Rhythm
Musculoskeletal: No Edema
Skin: Warm and Dry
Neuro: AO x 3
Psych: Calm
Impression / Plan
-
CVA:
-this diagnosis is threat to bodily function
-Many acute ischemic infarcts in left cerebral hemisphere middle cerebral artery territory
-on ASA, plavix, statin
-echo pending, likely plan for implantable loop recorder tomorrow- discussed with patient who is agreeable- will arrange
-follow telemetry
HTN:
-stable
-continue amlodipine
-ARB held with abnormal renal function
Dyslipidemia:
-LDL 168
-now on high-intensity statin
DM:
-hgba1C 6.8
-new diagnosis, management per primary
Abnormal renal function:
-Hx CKD per chart
-ARB Held, fluids given
-w/u per primary team
Data Reviewed
-
EKG: Tracing Personally Visualized and interpreted (NSR)
MRI: Report Reviewed by me (MANY ACUTE ISCHEMIC INFARCTS in the LEFT CEREBRAL HEMISPHERE MIDDLE CEREBRAL ARTERY TERRITORY involving cortical roper matter in the left frontal lobe, left parietal lobe, and superior left occipital lobe (including a 2.5
cm acute ischemic infarct in the left frontal lobe precentral gyrus).)
Medical Tests (Nuc Med, Echo etc): Other (pending)
Labs: Labs Reviewed by me
[2023-07-11 12:10] LABS: Glucose - Point of Care 128 mg/dl (70-99)
--- NOTE | 2023-07-11 14:11 | PTCARENOTE ---
Received patient this am AAOx3. IVF started on patient as ordered. Pt off unit for echo then for bubble study. Tolerated diet. Ambulates with walker an assistance of one. Pt offered no complaints. Made patient comfortable. Cont to assess patient
status.
--- NOTE | 2023-07-11 14:16 | PN.DE ---
Diabetes Education
- -
Diabetes Education Consult
Met with Mr. Herron for glucose monitor instructions. He is of decent but states that he speaks and understands Czech.
Discussed current A1C of 6.8%, average blood sugar of 130, diabetes related short and skilled nursing complications, life style modification and self management at home.
Provided with Contour Next EZ glucometer, instructions with good return demonstration, result 220 mg/dl 1 hr after breakfast.
Discussed testing pattern and expected results and information marked in the take home booklet. Discussed and reviewed importance of reducing CHO intake, being active and checking BS to assess food/medication effect on his BS.
Will need RX for test strips and lancets for the Contour Next EZ, testing 2x/day at discharge.
Updates given to Pt's nurse.
--- NOTE | 2023-07-11 14:30 | CON.MD ---
Documented by User: Meryl French PA-C 07/11/23 20:34
Consultation - Medical
-
Referring Provider: Ashanti Holder
Chief Complaint: CVA
History of Present Illness: This is a 63- year- male ([place]-speaking and speaks some Salvadorean) recently moved to the [place] 7 months ago with PMH (of hypertension, CKD, Gout) who presented to the ED on 07/09/2023 for neck pain with radiation to the right
upper extremity then down the right leg along with weakness. His symptoms improved during the day then worsened in the evening prompting a visit to the ER. CT head obtained was negative for any acute abnormalities. He received DAPT in the ER , but
was not a candidate for TNK/IAT due to being outside of the time window. MRI of the brain with many acute ischemic infarcts in the left cerebral hemisphere middle cerebral artery territory and MRI of the cervical spine with moderate size
multilevel disc herniations with moderate spinal cord compression and central canal stenosis. Neurology requested cardiology consult for an implantable loop recorder. TTE done today shows normal LVEF, no significant valve disease, and no shunt
physiology (including bubble study) and telemetry with short SVT. Aiming for implantable loop recorder in the AM but not before EP reviews telemetry then. MRA of Neck and Head to be done,
MRI brain: MANY ACUTE ISCHEMIC INFARCTS in the LEFT CEREBRAL HEMISPHERE MIDDLE CEREBRAL ARTERY TERRITORY involving cortical roper matter in the left frontal lobe, left parietal lobe, and superior left occipital lobe (including a 2.5 cm acute ischemic
infarct in the left frontal lobe precentral gyrus). Mild to moderate white matter leukoaraiosis in the frontal and parietal lobes. Mild paranasal sinus mucosal disease.
MRI C spine: MODERATE-SIZED MULTILEVEL DISC HERNIATIONS throughout the cervical spine. MODERATE SPINAL CORD COMPRESSION and CENTRAL CANAL STENOSIS at C3/C4, C4/C5, and C5/C6. Mild spinal cord compression and central canal stenosis at C2/C3. Moderate
discogenic degenerative disease at C5/C6. Severe right neural foraminal narrowing at C5/C6. Large 2.4 cm left lobe thyroid nodule.
- Lyrica 25mg BID for pain relief
Past Medical History: hypertension, Chronic Kidney Disease, Gout
Procedure History: none
Family History: None pertinent
Social History:
Functional Level Premorbidly: Independent with all activities
Functional Level Currently: Bed mobility�supervision, transfers�min assist, ambulates 20 feet without device and min assist for contact-guard with gait mildly unsteady with decreased step length and foot clearance. Mild coordination difficulty with
taking reciprocal steps. Lower body dressing care - minimal assist
Tobacco: Former smoker. Quit many years ago.
Alcohol: Denies
Drug use: Denies
Lives with: Family
24-hour assistance available:
Number of floors: Multilevel
# steps to enter: 7
# steps to second floor: Full flight
Potential First floor set up: No
Driving: No
Occupation:
�
Allergies:
Allergy/AdvReac Type Severity Reaction Status Date / Time
No Known Allergies Allergy Verified 07/09/23 23:10
Review of Systems:
Constitutional: (x) Normal _
Eye: (x) Normal _
Ear/Nose/Throat: (x) Normal _
Respiratory: (x) Normal _
Cardiovascular: (x) Normal _
Gastrointestinal: (x) Normal _
Genitourinary: (x) ANNA
Musculoskeletal: (x) neck pain, cervical stenosis
Integumentary: (x) Normal _
Neurologic: (x) cva
Psychiatric: (x) Normal _
Endocrine: (x) new dx of DM
Hematologic/Lymphatic: (x) Normal _
Allergic/Immunologic: (x) Normal _
Medications:
Active Current Visit Medication List
Category Date Time Status
0.9% Sodium Chloride 1000 ml [Nss] 1,000 ml Med 07/11/23 08:15 Active
IV 70 mls/hr
Acetaminophen [Tylenol] Med 07/10/23 00:43 Active
650 mg PO Q4HPRN PRN
Amlodipine [Norvasc] Med 07/10/23 08:00 Active
5 mg PO DAILY
Aspirin Chewable [Low Strength Aspirin] Med 07/10/23 08:00 Active
81 mg PO DAILY
Atorvastatin [Lipitor] Med 07/10/23 18:00 Active
80 mg PO QPM
Calcitriol [Rocaltrol] Med 07/10/23 08:00 Active
0.25 mcg PO DAILY
Clopidogrel Bisulfate [Plavix] Med 07/10/23 08:00 Active
75 mg PO DAILY
Dextrose 50%-Water [Dextrose 50% Syringe] Med 07/10/23 13:06 Active
12.5 grams IV [id number] PRN
Febuxostat (Non-Form) [Uloric] Med 07/10/23 08:00 Active
40 mg PO DAILY
Flush (0.9% Sodium Chloride) [Flush (Nss)] Med 07/10/23 01:00 Active
See Dose Instructions IV PER PROTOCOL
Glucagon [GlucaGen] Med 07/10/23 13:06 Active
1 mg IM PRN PRN
Insulin Aspart Corrective Low [Novolog Flexpen-Low Med 07/10/23 16:30 Active
Resistance]
See Protocol SC AC
Lidocaine [Lidocaine 4% Patch] Med 07/11/23 08:00 Active
1 patch TOPICAL DAILY
Losartan [Cozaar] Med 07/10/23 08:00 Hold
50 mg PO DAILY
METFORMIN HCl [Glucophage] Med 07/10/23 18:00 Active
500 mg PO QPM
Pregabalin [Lyrica] Med 07/10/23 11:00 Active
25 mg PO BID
Remove Patch [Remove Lidocaine Patch] Med 07/11/23 20:00 Active
See Dose Instructions REMOVE DAILY@1999
Vitals:
Temp Pulse Resp BP Pulse Ox
97.7 F 75 18 141/89 97
07/11/23 08:20 07/11/23 09:16 07/11/23 08:20 07/11/23 09:16 07/11/23 09:30
Height 5 ft 6 in
Actual Weight 70.216 kg
Body Mass Index (BMI) 25.0
Physical Exam:
General Appearance/Observation: Well-developed, well-nourished individual in no apparent distress.
Pain/Comfort Assessment: Denies neck pain at the moment
Mood/Affect: Appropriate, pleasant. Patient speaks Salvadorean well enough and was able to communicate with me without any difficulties and without the need of an fire official
Integumentary/Operative Site:
�� Pressure Ulcer Evaluation: absent over heels.
��
�� Other Type of Wound: absent
��
Eyes: Conjunctiva/Lids: normal ��� Pupils: pupils equal round and reactive to light and Accommodation
Ears/Nose/Throat: oral mucosa moist,� throat clear.������������ Lips/Teeth/Gums: normal
Neck: muscle spasm , no tenderness
Cardiovascular: Heart: regular, no murmur
Pulses: dorsalis pedis 2+ bilaterally
Respiratory: Respiratory Effort/Chest Expansion: normal ������� Auscultation: Clear to auscultation bilaterally
Gastrointestinal: abdomen not tender, no distension, normal abdominal bowel sounds
Genitourinary: No Elias
Extremities: Edema: None Cyanosis: None Trophic changes: None
Neurology Exam:
Orientation: Alert, Oriented to self, Time, Place
Memory: Intact for immediate medical concerns
Higher cortical function
Repetition: Intact
Comprehension: Intact
Two step command: Intact
Naming: Intact
Cranial Nerves:
�� CNII: Pupillary light reflex: Intact��� Visual Field: Intact
�� CN III, IV, : Extraocular muscles: Intact
�� CN V: Facial Sensation at Forehead: Intact, Maxilla: Intact, Mandible: Intact
�� CN VII: Facial movement: Symmetric
�� CN VIII: Hearing: Normal
�� CN IX/X: Speech & swallow: Normal, Position of Uvula: Midline
�� CN XI: Shoulder shrug: Symmetric
�� CN XII: Tongue protrusion: Midline
Sensory:
�� Light touch: Intact in bilateral upper and lower extremities There was no extinction noted on double simultaneous stimulation.
��
Reflexes:
�� Biceps: 2+ bilaterally
�� Brachioradialis: 2+ bilaterally
�� Triceps: 2+ bilaterally
�� Patellar: 2+ bilaterally
�� Achilles: 2+ bilaterally
�� Babinski: Down going bilaterally
�� Clonus:bilaterally
�� Cindy: Negative bilaterally
Cerebellar: Dysmetria/Ataxia: Coordination intact for finger to nose bilaterally. Did not evaluate ambulation
Musculoskeletal:
Motor: (Manual muscle scale 0-5)
Muscle SA EF WE EE FF FA HF KE DF EHL PF
Right� 4 4+ 4+ 4+ 4 4 4+ 4+ 5 5 5
Left 5 5 5 5 5 5 5 5 5 5 5
Tone: Normal in all extremities
Range of Motion: Passively within normal limits in all extremities
Lab Results
Labs
WBC 7.4 10^3/uL (4.8-10.8) 07/11/23 06:33
RBC 4.98 10^6/uL (4.70-6.10) 07/11/23 06:33
Hgb 14.6 g/dL (13.0-18.0) 07/11/23 06:33
Hct 44.0 % (39.0-52.0) 07/11/23 06:33
MCV 88.4 fL (80.0-94.0) 07/11/23 06:33
MCH 29.3 pg (27.0-31.0) 07/11/23 06:33
MCHC 33.2 g/dL (33.0-37.0) 07/11/23 06:33
RDW 13.6 % (11.5-14.5) 07/11/23 06:33
Plt Count 254 10^3/uL (130-400) 07/11/23 06:33
MPV 10.0 fL (7.4-10.4) 07/11/23 06:33
Abs Immat Gran (auto) 0.0 10^3/uL (0-0.05) 07/09/23:44
Absolute Neuts (auto) 4.1 10^3/uL (1.4-6.5) 07/09/23:44
Absolute Lymphs (auto) 2.4 10^3/uL (1.2-3.4) 07/09/23:44
Absolute Monos (auto) 0.7 10^3/uL (0.1-0.6) H 07/09/23:44
Absolute Eos (auto) 0.1 10^3/uL (0-0.7) 07/09/23:44
Absolute Basos (auto) 0.0 10^3/uL (0-0.2) 07/09/23:44
Immature Gran % 0.1 % (0-0.5) 07/09/23:
Neutrophils % 55.4 % (42.2-75.2) 07/09/23:44
Lymphocytes % 32.7 % (20.5-51.1) 07/09/23:44
Monocytes % 9.7 % (1.7-9.3) H 07/09/23:44
Eosinophils % 1.6 % (0-6) 07/09/23:44
Basophils % 0.5 % (0-2) 07/09/23:
Nucleated RBC % 0 % (-) 07/09/23:44
PT 13.0 Sec (11.4-14.6) 07/09/23:
INR 1.00 07/09/23:44
APTT 31.6 Sec (23.4-35.0) 07/09/23:44
Sodium 139 mmol/L (135-145) 07/11/23 06:33
Potassium 4.4 mmol/L (3.5-5.1) 07/11/23 06:33
Chloride 104 mmol/L (98-107) 07/11/23 06:33
Carbon Dioxide 23 mmol/L (22-30) 07/11/23 06:33
BUN 40 mg/dl (9-20) H 07/11/23 06:33
Creatinine 2.4 mg/dL (0.7-1.3) H 07/11/23 06:33
Estimated Creat Clear 28 ml/min 07/11/23 06:33
eGFR 29.39 07/11/23 06:33
Glucose 123 mg/dl (70-99) H 07/11/23 06:33
Hemoglobin A1c 6.8 % (4.0-5.6) H 07/10/23 05:24
Calcium 9.6 mg/dl (8.4-10.2) 07/11/23 06:33
Magnesium 2.1 mg/dl (1.6-2.3) 07/10/23 05:24
Total Bilirubin 0.5 mg/dl (0.2-1.3) 07/09/23 22:44
AST 27 U/L (17-59) 07/09/23 22:44
ALT 22 U/L (0-50) 07/09/23 22:44
Alkaline Phosphatase 108 U/L (38-126) 07/09/23 22:44
Troponin I < 0.012 ng/ml 07/09/23 22:44
Total Protein 8.2 g/dl (6.3-8.2) 07/09/23 22:44
Albumin 4.5 g/dl (3.5-5.0) 07/09/23 22:44
Triglycerides 244 mg/dl (10-149) H 07/10/23 05:24
Total Cholesterol 253 mg/dl (50-199) H 07/10/23 05:24
LDL Cholesterol, Calc 168 mg/dl 07/10/23 05:24
VLDL Cholesterol, Calc 48 mg/dl (0-30) H 07/10/23 05:24
HDL Cholesterol 37 mg/dl 07/10/23 05:24
POC Glucose 128 mg/dl (70-99) H 07/11/23 12:08
�
Diagnostic Results: as per HPI
Assessment This is a 63- year- male (Et[place]-speaking) with PMH (of hypertension, CKD, Gout) who presented to the ED on 07/09/2023 for neck pain with radiation to the right upper extremity then down the right leg along with weakness. His symptoms
improved during the day then worsened in the evening prompting a visit to the ER. MRI of the brain with many acute ischemic infarcts in the left cerebral hemisphere middle cerebral artery territory and MRI of the cervical spine with moderate size
multilevel disc herniations with moderate spinal cord compression and central canal stenosis.
Plan
PT/OT to increase independence with ADLs, improve balance, coordination, endurance, strength, mobility, community reintegration, decreased burden of care on others and family education.
CVA:.many acute ischemic infarcts in the left cerebral hemisphere middle cerebral artery territory. Neurology: combination of aspirin and clopidogrel with resolution of clopidogrel after 21 days, then aspirin alone, Secondary prophylaxis with
aspirin, statin, and blood pressure control (SBP less than 180 and diastolic less than 100 to participate with therapy for ischemic stroke). Continue to monitor neurologic status.
right dominant hemiparesis: High risk for falls and sliding out of chair/bed. Safety reinforced. Strength improved from initial presentation
- Avoid using affected arm to help lift or pull patient as this will cause trauma to the shoulder.
HTN: Amlodipine 5 mg daily, losartan 50 mg daily�on hold due to ANNA.
HLD: Atorvastatin 80 mg
DM II: New diagnosis- Dietary and paraeducator evaluation. Was started on metformin 500mg qd
ANNA on CKD 3: ARB on hold. Bun 40, creatinine 2.4
Anemia: Likely multifactorial.� Continue to monitor.
Psych: Psychology consult.� Monitor mood, adjust medications as needed.
Skin: monitor for pressure sores/rashes/lesions.
Pain/neck/cervical dis herniations: acetaminophen as needed, Lyrica 25 twice daily, Lidoderm patch
Bowel: Colace and Senna, PRN bisacodyl.
Bladder: Time void, PVRs, PRN straight cath.
GI Prophylaxis: Pantoprazole
DVT Prophylaxis: Mechanical
Pulmonary: Incentive spirometry
Safety: Continue to reinforce assistance with all transfers.
Code Status:� Full code
Dispo (date/plan/equipment needs): Home with family care.� Social history reviewed.
Functional and Medical Goals: Modified Independent with ADL�s, ambulation, transfers
Discharge Destination: Acute inpatient rehabilitation once work ups are completed and is medically cleared.
Summary of recommendations: Patient with right-sided weakness due to CVA stemming from many infarcts and also with associated cervical disc herniations and spinal stenosis, currently not a surgical candidate due to CVA functional at transfers�min
assist, ambulates 20 feet without device and min assist for contact-guard with gait mildly unsteady with decreased step length and foot clearance. Mild coordination difficulty with taking reciprocal steps, would benefit from PT/OT to increase
independence with ADLs, improve balance, coordination, endurance, strength, mobility, community reintegration, decreased burden of care on others and family education.
CVA:.many acute ischemic infarcts in the left cerebral hemisphere middle cerebral artery territory. Neurology: combination of aspirin and clopidogrel with resolution of clopidogrel after 21 days, then aspirin alone, Secondary prophylaxis with
aspirin, statin, and blood pressure control (SBP less than 180 and diastolic less than 100 to participate with therapy for ischemic stroke). Continue to monitor neurologic status. Implantable loop recorder to be done tomorrow requested by neurology.
right dominant hemiparesis: High risk for falls and sliding out of chair/bed. Safety reinforced. Strength improved from initial presentation
- Avoid using affected arm to help lift or pull patient as this will cause trauma to the shoulder.
HTN: Amlodipine 5 mg daily, losartan 50 mg daily�on hold due to ANNA.
ANNA on CKD 3: ARB on hold. Bun 30 to 40, creatinine 1.8 to 2.4. Would appreciate nephrology input prior to discharge, transfer
Bowel: Colace and Senna, PRN bisacodyl.
Bladder: Time void, PVRs, PRN straight cath.
GI Prophylaxis: Pantoprazole
DVT Prophylaxis: Mechanical. Would add heparin or Lovenox sc
Pulmonary: Incentive spirometry
Safety: Continue to reinforce assistance with all transfers.
Thank you for allowing me to care for your patient. Please contact me with any questions or concerns.
This note was dictated using a voice recognition system. Please excuse any typographical errors from validation analyst. If you believe there are any discrepancies, please notify our office.

Documented by User: Clive Patrick MD 07/12/23 10:24
Consultation - Medical
-
Referring Provider: Ashanti Holder
Chief Complaint: CVA
History of Present Illness: This is a 63- year-old Right handed male ([place]-speaking and speaks some Salvadorean) recently moved to the [place] months ago with PMH (of hypertension, CKD, Gout) who presented to the ED on 07/09/2023 for neck pain with
radiation to the right upper extremity then down the right leg along with weakness. His symptoms improved during the day then worsened in the evening prompting a visit to the ER. CT head obtained was negative for any acute abnormalities. He
received DAPT in the ER , but was not a candidate for TNK/IAT due to being outside of the time window. MRI of the brain with many acute ischemic infarcts in the left cerebral hemisphere middle cerebral artery territory and MRI of the cervical
spine with moderate size multilevel disc herniations with moderate spinal cord compression and central canal stenosis. Neurology requested cardiology consult for an implantable loop recorder. TTE done today shows normal LVEF, no significant valve
disease, and no shunt physiology (including bubble study) and telemetry with short SVT. Aiming for implantable loop recorder in the AM but not before EP reviews telemetry then. MRA of Neck and Head to be done,
MRI brain: MANY ACUTE ISCHEMIC INFARCTS in the LEFT CEREBRAL HEMISPHERE MIDDLE CEREBRAL ARTERY TERRITORY involving cortical roper matter in the left frontal lobe, left parietal lobe, and superior left occipital lobe (including a 2.5 cm acute ischemic
infarct in the left frontal lobe precentral gyrus). Mild to moderate white matter leukoaraiosis in the frontal and parietal lobes. Mild paranasal sinus mucosal disease.
MRI C spine: MODERATE-SIZED MULTILEVEL DISC HERNIATIONS throughout the cervical spine. MODERATE SPINAL CORD COMPRESSION and CENTRAL CANAL STENOSIS at C3/C4, C4/C5, and C5/C6. Mild spinal cord compression and central canal stenosis at C2/C3. Moderate
discogenic degenerative disease at C5/C6. Severe right neural foraminal narrowing at C5/C6. Large 2.4 cm left lobe thyroid nodule.
- Lyrica 25mg BID for pain relief.
Spoke with Dr. Martinez today and plan is likely vascular intervention possibly next week. Will remain in the hospital for that and then rehab. Patient notes that he still has some problems with the right-sided weakness. Overall feeling better.
Past Medical History: hypertension, Chronic Kidney Disease, Gout
Procedure History: none
Family History: None pertinent
Social History:
Functional Level Premorbidly: Independent with all activities
Functional Level Currently: Bed mobility�supervision, transfers�min assist, ambulates 20 feet without device and min assist for contact-guard with gait mildly unsteady with decreased step length and foot clearance. Mild coordination difficulty with
taking reciprocal steps. Lower body dressing care - minimal assist
Tobacco: Former smoker. Quit many years ago.
Alcohol: Denies
Drug use: Denies
Lives with: Alone
24-hour assistance available: No. and daughter live nearby
Number of floors: 2
# steps to enter: 7
# steps to second floor: Full flight
Potential First floor set up: No
Driving: No
Occupation: Working at [employer]
Allergies:
Allergy/AdvReac Type Severity Reaction Status Date / Time
No Known Allergies Allergy Verified 07/09/23 23:10
Review of Systems:
Constitutional: (x) abNormal _ tired
Eye: (x) Normal _
Ear/Nose/Throat: (x) Normal _
Respiratory: (x) Normal _
Cardiovascular: (x) Normal _
Gastrointestinal: (x) Normal _
Genitourinary: (x) ANNA
Musculoskeletal: (x) neck pain, cervical stenosis
Integumentary: (x) Normal _
Neurologic: (x) cva with right-sided weakness
Psychiatric: (x) Normal _
Endocrine: (x) new dx of DM
Hematologic/Lymphatic: (x) Normal _
Allergic/Immunologic: (x) Normal _
Medications:
Active Current Visit Medication List
Category Date Time Status
0.9% Sodium Chloride 1000 ml [Nss] 1,000 ml Med 07/11/23 08:15 Active
IV 70 mls/hr
Acetaminophen [Tylenol] Med 07/10/23 00:43 Active
650 mg PO Q4HPRN PRN
Amlodipine [Norvasc] Med 07/10/23 08:00 Active
5 mg PO DAILY
Aspirin Chewable [Low Strength Aspirin] Med 07/10/23 08:00 Active
81 mg PO DAILY
Atorvastatin [Lipitor] Med 07/10/23 18:00 Active
80 mg PO QPM
Calcitriol [Rocaltrol] Med 07/10/23 08:00 Active
0.25 mcg PO DAILY
Clopidogrel Bisulfate [Plavix] Med 07/10/23 08:00 Active
75 mg PO DAILY
Dextrose 50%-Water [Dextrose 50% Syringe] Med 07/10/23 13:06 Active
12.5 grams IV [id number] PRN
Febuxostat (Non-Form) [Uloric] Med 07/10/23 08:00 Active
40 mg PO DAILY
Flush (0.9% Sodium Chloride) [Flush (Nss)] Med 07/10/23 01:00 Active
See Dose Instructions IV PER PROTOCOL
Glucagon [GlucaGen] Med 07/10/23 13:06 Active
1 mg IM PRN PRN
Insulin Aspart Corrective Low [Novolog Flexpen-Low Med 07/10/23 16:30 Active
Resistance]
See Protocol SC AC
Lidocaine [Lidocaine 4% Patch] Med 07/11/23 08:00 Active
1 patch TOPICAL DAILY
Losartan [Cozaar] Med 07/10/23 08:00 Hold
50 mg PO DAILY
METFORMIN HCl [Glucophage] Med 07/10/23 18:00 Active
500 mg PO QPM
Pregabalin [Lyrica] Med 07/10/23 11:00 Active
25 mg PO BID
Remove Patch [Remove Lidocaine Patch] Med 07/11/23 20:00 Active
See Dose Instructions REMOVE DAILY@1999
Vitals:
Temp Pulse Resp BP Pulse Ox
97.7 F 75 18 141/89 97
07/11/23 08:20 07/11/23 09:16 07/11/23 08:20 07/11/23 09:16 07/11/23 09:30
Height 5 ft 6 in
Actual Weight 70.216 kg
Body Mass Index (BMI) 25.0
Physical Exam:
General Appearance/Observation: Well-developed, well-nourished male in no apparent distress.
Pain/Comfort Assessment: Denies neck pain at the moment
Mood/Affect: Appropriate, pleasant. Patient speaks Salvadorean well enough and was able to communicate with me without any difficulties and without the need of an fire official
Integumentary/Operative Site:
�� Pressure Ulcer Evaluation: absent over heels.
���� Other Type of Wound: absent
��
Eyes: Conjunctiva/Lids: normal ��� Pupils: pupils equal round and reactive to light and Accommodation
Ears/Nose/Throat: oral mucosa moist,� throat clear.������������ Lips/Teeth/Gums: normal
Neck: muscle spasm , no tenderness
Cardiovascular: Heart: regular, no murmur
Pulses: dorsalis pedis 2+ bilaterally
Respiratory: Respiratory Effort/Chest Expansion: normal ������� Auscultation: Clear to auscultation bilaterally
Gastrointestinal: abdomen not tender, no distension, normal abdominal bowel sounds
Genitourinary: No Elias
Extremities: Edema: None Cyanosis: None Trophic changes: None
Neurology Exam:
Orientation: Alert, Oriented to self, Time, Place
Memory: Intact for immediate medical concerns
Repetition: Intact
Comprehension: Intact
Two step command: Intact
Naming: Intact
Cranial Nerves:
�� CNII: Pupillary light reflex: Intact��� Visual Field: Intact
�� CN III, IV, : Extraocular muscles: Intact
�� CN V: Facial Sensation at Forehead: Intact, Maxilla: Intact, Mandible: Intact
�� CN VII: Facial movement: Slight right facial asymmetry
�� CN VIII: Hearing: Normal
�� CN IX/X: Speech & swallow: Normal, Position of Uvula: Midline
�� CN XI: Shoulder shrug: Symmetric
�� CN XII: Tongue protrusion: Midline
Sensory:
�� Light touch: Intact in bilateral upper and lower extremities There was no extinction noted on double simultaneous stimulation.
��
Reflexes:
�� Biceps: 2+ bilaterally
�� Brachioradialis: 2+ bilaterally
�� Triceps: 2+ bilaterally
�� Patellar: 2+ bilaterally
�� Achilles: 2+ bilaterally
�� Babinski: Down going bilaterally
�� Clonus:bilaterally
�� Cindy: Negative bilaterally
Cerebellar: Dysmetria/Ataxia: Coordination intact for finger to nose bilaterally. Did not evaluate ambulation
Musculoskeletal: Motor: (Manual muscle scale 0-5)
Muscle SA EF WE EE FF FA HF KE DF EHL PF
Right� 4 4+ 4+ 4+ 4+ 4 4 4 4 4 4
Left 5 5 5 5 5 5 5 5 5 5 5
Tone: Normal in all extremities
Range of Motion: Passively within normal limits in all extremities
Lab Results
Labs
WBC 7.4 10^3/uL (4.8-10.8) 07/11/23 06:33
RBC 4.98 10^6/uL (4.70-6.10) 07/11/23 06:33
Hgb 14.6 g/dL (13.0-18.0) 07/11/23 06:
Hct 44.0 % (39.0-52.0) 07/11/23 06:
MCV 88.4 fL (80.0-94.0) 07/11/23 06:33
MCH 29.3 pg (27.0-31.0) 07/11/23 06:
MCHC 33.2 g/dL (33.0-37.0) 07/11/23 06:
RDW 13.6 % (11.5-14.5) 07/11/23 06:
Plt Count 254 10^3/uL (130-400) 07/11/23:
MPV 10.0 fL (7.4-10.4) 07/11/23 06:33
Abs Immat Gran (auto) 0.0 10^3/uL (0-0.05) 07/09/23:
Absolute Neuts (auto) 4.1 10^3/uL (1.4-6.5) 07/09/23:44
Absolute Lymphs (auto) 2.4 10^3/uL (1.2-3.4) 07/09/23:44
Absolute Monos (auto) 0.7 10^3/uL (0.1-0.6) H 07/09/23:44
Absolute Eos (auto) 0.1 10^3/uL (0-0.7) 07/09/23:44
Absolute Basos (auto) 0.0 10^3/uL (0-0.2) 07/09/23:
Immature Gran % 0.1 % (0-0.5) 07/09/23:
Neutrophils % 55.4 % (42.2-75.2) 07/09/23:
Lymphocytes % 32.7 % (20.5-51.1) 07/09/23:
Monocytes % 9.7 % (1.7-9.3) H 05/20/24 22:44
Eosinophils % 1.6 % (0-6) 07/09/23 22:44
Basophils % 0.5 % (0-2) 07/09/23:44
Nucleated RBC % 0 % (-) 07/09/23 22:44
PT 13.0 Sec (11.4-14.6) 07/09/23:44
INR 1.00 07/09/23:44
APTT 31.6 Sec (23.4-35.0) 07/09/23 22:44
Sodium 139 mmol/L (135-145) 07/11/23 06:33
Potassium 4.4 mmol/L (3.5-5.1) 07/11/23 06:33
Chloride 104 mmol/L (98-107) 07/11/23 06:33
Carbon Dioxide 23 mmol/L (22-30) 07/11/23 06:33
BUN 40 mg/dl (9-20) H 07/11/23 06:33
Creatinine 2.4 mg/dL (0.7-1.3) H 07/11/23 06:33
Estimated Creat Clear 28 ml/min 07/11/23 06:33
eGFR 29.39 07/11/23 06:33
Glucose 123 mg/dl (70-99) H 07/11/23 06:33
Hemoglobin A1c 6.8 % (4.0-5.6) H 07/10/23 05:24
Calcium 9.6 mg/dl (8.4-10.2) 07/11/23 06:33
Magnesium 2.1 mg/dl (1.6-2.3) 07/10/23 05:24
Total Bilirubin 0.5 mg/dl (0.2-1.3) 07/09/23:44
AST 27 U/L (17-59) 07/09/23:44
ALT 22 U/L (0-50) 07/09/23:44
Alkaline Phosphatase 108 U/L (38-126) 05/20/24 22:44
Troponin I < 0.012 ng/ml 07/09/23 22:44
Total Protein 8.2 g/dl (6.3-8.2) 07/09/23 22:44
Albumin 4.5 g/dl (3.5-5.0) 07/09/23 22:44
Triglycerides 244 mg/dl (10-149) H 07/10/23 05:24
Total Cholesterol 253 mg/dl (50-199) H 07/10/23 05:24
LDL Cholesterol, Calc 168 mg/dl 07/10/23 05:24
VLDL Cholesterol, Calc 48 mg/dl (0-30) H 07/10/23 05:24
HDL Cholesterol 37 mg/dl 07/10/23 05:24
POC Glucose 128 mg/dl (70-99) H 07/11/23 12:08
Diagnostic Results: as per HPI
Assessment This is a 63- year- male (Etta-speaking) with PMH (of hypertension, CKD, Gout) who presented to the ED on 07/09/2023 for neck pain with radiation to the right upper extremity then down the right leg along with weakness. His symptoms
improved during the day then worsened in the evening prompting a visit to the ER. MRI of the brain with many acute ischemic infarcts in the left cerebral hemisphere middle cerebral artery territory and MRI of the cervical spine with moderate size
multilevel disc herniations with moderate spinal cord compression and central canal stenosis.
Plan
PT/OT to increase independence with ADLs, improve balance, coordination, endurance, strength, mobility, community reintegration, decreased burden of care on others and family education.
CVA:many acute ischemic infarcts in the left cerebral hemisphere middle cerebral artery territory. Neurology: combination of aspirin and clopidogrel with resolution of clopidogrel after 21 days, then aspirin alone, Secondary prophylaxis with
aspirin, statin, and blood pressure control (SBP less than 180 and diastolic less than 100 to participate with therapy for ischemic stroke). Continue to monitor neurologic status.
-Spoke with Dr. Martinez 07/12/2023 will need more imaging and likely candidate for revascularization left carotid. Rehab plan would be to go to rehab after procedure.
Right dominant hemiparesis: High risk for falls and sliding out of chair/bed. Safety reinforced. Strength improved from initial presentation
- Avoid using affected arm to help lift or pull patient as this will cause trauma to the shoulder.
HTN: Amlodipine 5 mg daily, losartan 50 mg daily�on hold due to ANNA.
HLD: Atorvastatin 80 mg
DM II: New diagnosis- Dietary and paraeducator evaluation. Was started on metformin 500mg qd
ANNA on CKD 3: ARB on hold. Bun 40, creatinine 2.4
Anemia: Likely multifactorial.� Continue to monitor.
Psych: Psychology consult.� Monitor mood, adjust medications as needed.
Skin: monitor for pressure sores/rashes/lesions.
Pain/neck/cervical dis herniations: acetaminophen as needed, Lyrica 25 twice daily, Lidoderm patch
Bowel: Colace and Senna, PRN bisacodyl.
Bladder: Time void, PVRs, PRN straight cath.
GI Prophylaxis: Pantoprazole
DVT Prophylaxis: Mechanical, suggest chemoprophylaxis when cleared with neurology.
Pulmonary: Incentive spirometry
Safety: Continue to reinforce assistance with all transfers.
Code Status:� Full code
Dispo (date/plan/equipment needs): Home with family care.� Social history reviewed.
Functional and Medical Goals: Modified Independent with ADL�s, ambulation, transfers
Discharge Destination: Acute inpatient rehabilitation once work ups are completed and is medically cleared.
Summary of recommendations: Patient with right-sided weakness due to CVA stemming from many infarcts and also with associated cervical disc herniations and spinal stenosis, currently not a surgical candidate due to CVA functional at transfers�min
assist, ambulates 20 feet without device and min assist for contact-guard with gait mildly unsteady with decreased step length and foot clearance. Mild coordination difficulty with taking reciprocal steps, would benefit from PT/OT to increase
independence with ADLs, improve balance, coordination, endurance, strength, mobility, community reintegration, decreased burden of care on others and family education.
CVA:many acute ischemic infarcts in the left cerebral hemisphere middle cerebral artery territory. Neurology: combination of aspirin and clopidogrel with resolution of clopidogrel after 21 days, then aspirin alone, Secondary prophylaxis with
aspirin, statin, and blood pressure control (SBP less than 180 and diastolic less than 100 to participate with therapy for ischemic stroke). Continue to monitor neurologic status. Implantable loop recorder to be done tomorrow requested by neurology.
Right dominant hemiparesis: High risk for falls and sliding out of chair/bed. Safety reinforced. Strength improved from initial presentation
- Avoid using affected arm to help lift or pull patient as this will cause trauma to the shoulder.
HTN: Amlodipine 5 mg daily, losartan 50 mg daily�on hold due to ANNA.
ANNA on CKD 3: ARB on hold. Bun 30 to 40, creatinine 1.8 to 2.4. Would appreciate nephrology input prior to discharge, transfer
Bowel: Colace and Senna, PRN bisacodyl.
Bladder: Time void, PVRs, PRN straight cath.
GI Prophylaxis: Pantoprazole
DVT Prophylaxis: Mechanical. Would add heparin or Lovenox sc
Pulmonary: Incentive spirometry
Safety: Continue to reinforce assistance with all transfers.
Thank you for allowing me to care for your patient. Please contact me with any questions or concerns.
Attending Statement:
I saw and examined the patient today. Reviewed care plan with patient, therapy, nursing, and physician medical assistant dermatology. I agree with the above subjective and physical exam, and plan as documented by LEO French with adjustments made as necessary.
A total of 60 minutes were spent with the patient preparing for the evaluation, obtaining history, performing examination and evaluation, counseling, data review, case management, care coordination, ordering machine operator, and EMR documentation.
[2023-07-11 16:14] VITALS: BP 128/80
--- NOTE | 2023-07-11 17:06 | CM ---
Alert awake oriented patient who speaks Etta.He lives with his dgt Cortes who lives in a 2 story home with 10 step to enter and 12 steps to bed and bathroom. He is independent in all activities of daily living.Ivy MCCORMACK saw family because he has
no insurance.Will need to see what coverage he may have with [facility].
No VN hx / No SNF history
Pharmacy [facility]
PCP Bharti Gonzalez clinic information given
PLAN Will need to see what can be covered.
[2023-07-11 17:07] LABS: Glucose - Point of Care 116 mg/dl (70-99)
[2023-07-11] MEDS: LIPITOR 80 MG PO (17:09)
[2023-07-11] MEDS: GLUCOPHAGE 500 MG PO (17:09)
[2023-07-11 18:14] LABS: Urine Albumin Negative (Neg - Trace); Urine Bilirubin Negative (Negative); Urine Character Clear (Clear); Urine Color Yellow; Urine Glucose Negative (Negative); Urine Ketone Negative (Negative); Urine Leukocyte Negative (Negative); Urine Nitrite Negative (Negative); Urine Occult Blood Negative (Negative); Urine Urobilinogen Negative (Neg - 1+)
[2023-07-11 18:51] LABS: Urine Sodium 34 mmol/L (30-90)
[2023-07-11 19:54] VITALS: BP 133/88
[2023-07-11 23:49] VITALS: BP 107/73
[2023-07-12] VITALS (8 sets, daily range): BP systolic 112–164; BP diastolic 65–98; PULSE 89; O2SAT 95
[2023-07-12 07:19] LABS: Glucose - Point of Care 132 mg/dl (70-99)
[2023-07-12 07:50] LABS: Blood Urea Nitrogen 45 mg/dl (9-20); Calcium 8.9 mg/dl (8.4-10.2); Carbon Dioxide 22 mmol/L (22-30); Chloride 106 mmol/L (98-107); Estimated Creatinine Clearance 29 ml/min; Glucose 111 mg/dl (70-99); Potassium 4.6 mmol/L (3.5-5.1); Sodium 139 mmol/L (135-145); eGFR 30.93
--- NOTE | 2023-07-12 07:50 | W.PN.CD ---
Today's Communication / Plan
-
Short paroxysm of AF, now in SR
Eliquis 5 mg bid when OK from neurology
Impression / Plan
-
63M with hypertension and new onset DM admitted with subacute ischemic stroke in the left MCA territory. Consideration for possible loop today.
CVA: rhythm strip showed pAF
-this diagnosis is threat to bodily function
-Many acute ischemic infarcts in left cerebral hemisphere middle cerebral artery territory
-on ASA, plavix, statin
-CHADSVASC of 3 HTN CVA and DM
- Eliquis 5 mg bid when OK from neurology
HTN:
-stable
-continue amlodipine
-ARB held with abnormal renal function
Dyslipidemia:
-LDL 168
-now on high-intensity statin
DM:
-hgba1C 6.8
-new diagnosis, management per primary
Abnormal renal function:
-Hx CKD per chart
-ARB Held, fluids given
-w/u per primary team
TTE: CONCLUSIONS
Normal left ventricular size, wall thickness and systolic function. LV ejection
fraction is 62%.
No significant valvular disease.
Interatrial septum is intact with no evidence of shunting by 2D, color Doppler,
and agitated saline bubble study.
Physical Exam
Vital Signs/Labs
Vital Signs
Temp Pulse Resp BP Pulse Ox
97.7 F 76 18 112/71 96
07/12/23 03:38 07/12/23 03:38 07/12/23 03:38 07/12/23 03:38 07/12/23 03:38
07/11/23 07/12/23 07/13/23
06:59 06:59 06:59
Actual Weight 154 lb 12.8 oz
07/11/23 06:33
07/12/23 06:31
PT 13.0 Sec (11.4-14.6) 07/09/23 22:44
INR 1.00 07/09/23 22:44
APTT 31.6 Sec (23.4-35.0) 07/09/23 22:44
Magnesium 2.1 mg/dl (1.6-2.3) 07/10/23 05:24
Triglycerides 244 mg/dl (10-149) H 07/10/23 05:24
LDL Cholesterol, Calc 168 mg/dl 07/10/23 05:24
VLDL Cholesterol, Calc 48 mg/dl (0-30) H 07/10/23 05:24
HDL Cholesterol 37 mg/dl 07/10/23 05:24
LAB Results
07/09/23
22:44
Troponin I < 0.012
Physical Exam
Constitutional: No acute distress
Cardiovascular: Rhythm & rate is regular and Pedal edema is absent
Respiratory: Respiratory effort normal and Lungs clear to auscul.
GI: Soft
Neuro/Psych: AO x 3
Data Reviewed
-
Date of Service: July 12, 2023
EKG: Tracing Personally Visualized and interpreted
Echo: Report Reviewed by me
Labs: Labs Reviewed by me
[2023-07-12] MEDS: NOVOLOG FLEXPEN-LOW RESISTANCE SC ×2 (08:07→17:03)
[2023-07-12] MEDS: LIDOCAINE 4% PATCH 1 PATCH TOPICAL (08:11)
[2023-07-12] MEDS: LOW STRENGTH ASPIRIN 81 MG PO (08:12)
[2023-07-12] MEDS: LYRICA 25 MG PO ×2 (08:12→20:35)
[2023-07-12] MEDS: ULORIC 40 MG PO (08:12)
[2023-07-12] MEDS: PLAVIX 75 MG PO (08:12)
[2023-07-12] MEDS: NORVASC 5 MG PO (08:12)
[2023-07-12] MEDS: FLUSH (NSS) 1 FLUSH IV ×2 (08:13→11:19)
[2023-07-12] MEDS: ROCALTROL 0.25 MCG PO (08:13)
--- NOTE | 2023-07-12 08:25 | W.PN.NEURO.1 ---
Today's Communication / Plan
-
-Keep on aspirin and clopidogrel
-Goal normotension, avoid aggressive treatment of bloodp ressure with IV medications unless SBP very elevated and above 180 systolic
-Neurologic checks NIH stroke scale
-CT angiogram of the head and neck would be most useful for further investigation into the left carotid lesion, agree with vascular surgery for hydration and consideration of nephrology given existing CKD
-If CTA imaging is more consistent with carotid stenosis with mural thrombus and hemorrhagic plaque then agree that patient would benefit from carotid revascularization, early next week would be acceptable
-PT/OT speech therapies
-Cardiac telemetry
Will follow
Neuro Assessment/Plan
Assessment
63-year-old male with a past medical history of obesity hyperlipidemia CKD presented to hospital with sudden onset right-sided weakness also did have some neck pain
MRI brain demonstrates acute stroke in the left MCA territory is embolic appearing
MRA of the head does show a lesion within the distal common carotid and proximal internal carotid artery, mural thrombus is seen along with narrowing, no clear dissection flap, narrowing and tapering is seen
Patient with no significant cause for a carotid artery dissection no significant head trauma or inciting events for dissection, while carotid dissection is possible it seems a strong possibility that this is more of an atherosclerotic plaque with
associated mural thrombus and stenosis
Regardless the left carotid lesion is definitely the cause of his ischemic stroke
Subjective/Objective
Subjective Data
Date of Service: July 12, 2023
No acute events, denies speech difficulty, feels right arm strength is improving but still some weakness
Objective Data
Vital Signs
Temp Pulse Resp BP Pulse Ox
97.5 F 75 14 120/65 95
07/12/23 08:02 07/12/23 08:12 07/12/23 08:02 07/12/23 08:12 07/12/23 08:07
Lab Results
07/11/23 06:33
07/12/23 06:31
PT 13.0 Sec (11.4-14.6) 07/09/23 22:44
INR 1.00 07/09/23 22:44
APTT 31.6 Sec (23.4-35.0) 07/09/23 22:44
Sodium 139 mmol/L (135-145) 07/12/23 06:31
Potassium 4.6 mmol/L (3.5-5.1) 07/12/23 06:31
BUN 45 mg/dl (9-20) H 07/12/23 06:31
Glucose 111 mg/dl (70-99) H 07/12/23 06:31
Calcium 8.9 mg/dl (8.4-10.2) 07/12/23 06:31
LDL Cholesterol, Calc 168 mg/dl 07/10/23 05:24
Patient Allergies
No Known Allergies Allergy (Verified 07/09/23 23:10)
LDL Level: >70, statin ordered
Review of Systems
-
History Source: Patient
All other systems: Reviewed and negative
Constitutional: No Symptoms
EENT: No Symptoms Reported
Respiratory: No Symptoms
Cardiac: No Symptoms
Abdomen/GI: No Symptoms
Genitourinary: No Symptoms
Musculoskeletal: No Symptoms
Skin: No Symptoms
Neuro: Weakness
Endocrine: No Symptoms
Hematologic / Lymphatic: No Symptoms
Allergy / Immunology: No Symptoms
Physical Exam
-
General: Well Developed and Well Nourished
Eyes: No Ptosis
HEENT: Normocephalic
Neck: No Bruits Bilaterally
Respiratory: Clear to Auscultation
Cardiac: Regular Rhythm
GI: Normal Bowel Sounds
Skin: Unremarkable
Extremities: No Clubbing
Psych: Unremarkable
Extended Neurological Exam
Mood & Affect: Mood Unremarkable and Affect Unremarkable
Attention Span & Concentration: Awake, Alert and Interactive
Memory: Unremarkable
Tremor: Hand Tremor Absent
Involuntary Movement: None
Speech: Quality Unremarkable; Negative Expressive Aphasia, Receptive Aphasia or Dysarthric
Cranial Nerve II: Left Eye: Pupillary Reactivity Unremarkable and Pupillary Size Unremarkable
Cranial Nerve II: Right Eye: Pupillary Reactivity Unremarkable and Pupillary Size Unremarkable
Cranial Nerves III, IV, : Extraocular Movement: Extraocular Movement Full in all Directions
Cranial Nerve VII: Facial Symmetry: Normal Facial Symmetry
Muscle Strength, Overall: Other (Very minor right arm flexion and shoulder abduction weakness 4+/5, right leg 5/5)
Pronator Drift: Drift in Right Upper Extremity
Deep Tendon Reflexes: Trace Throughout
Data Reviewed
-
CT-A: Ordered and Pending
CT Head: Report Reviewed and Image Reviewed
MRI Head: Report Reviewed and Image Reviewed
MRA Head: Report Reviewed and Image Reviewed
MRA Neck: Report Reviewed and Image Reviewed
Carotid Ultrasound: Pending
--- NOTE | 2023-07-12 09:33 | CON.VAS ---
Consultation
Consultation Request
Performing Provider: Juan
Reason for Consultation: Carotid dissection
Medical History
-
Chief Complaint: Right sided weakness
History of Present Illness:
63-year-old male admitted yesterday through the emergency room for CVA workup with right-sided weakness. Patient is Etta speaking but communicates with some Pashto. Past medical history significant for hypertension, diabetes, CKD. He states he
has not taken most of his medications since leaving [facility] 7 months ago. Patient reports right-sided weakness started yesterday morning upon waking. Throughout the day weakness seemed to get slightly better but then towards dinner the weakness
seemed to worsen which led to his ER visit.
MRA neck: Short segment of nonocclusive dissection and mural thrombus involving the proximal left internal carotid artery extending over approximately 1.9 cm in length
MRI brain: Many acute ischemic infarcts on the left side
Vascular consult for the above findings. Patient seen at bedside this a.m. with Dr. Martinez.
Past Medical History
Past Medical History: HTN, IDDM and Renal Failure
Past Surgical History: None
Social History
Tobacco: Former Smoker
Personal:
Living: Alone
Family History
Family History: Reviewed & Not Pertinent
Allergies / Home Medications
Allergy/AdvReac Type Severity Reaction Status Date / Time
No Known Allergies Allergy Verified 07/09/23 23:10
�Medication �Instructions �Recorded �Confirmed �Type
calcitriol 0.25 mcg capsule 0.25 mcg PO DAILY Kidney Disease 07/09/23 07/09/23 History
calcium carbonate 500 mg-vitamin 1 tab PO DAILY Supplement 07/09/23 07/09/23 History
D3 5 mcg (200 unit) tablet
(Calcium 500 + D)
febuxostat 40 mg tablet 40 mg PO DAILY Gout 07/09/23 07/09/23 History
telmisartan 40 mg-amlodipine 5 mg 1 tab PO DAILY Blood Pressure 07/09/23 07/09/23 History
tablet
Review of Systems
-
History Source: Patient
All other systems: Negative unless noted
Constitutional: Reports No Symptoms
EENT: Reports No Symptoms
Respiratory: Reports No Symptoms
Cardiac: Reports No Symptoms
Vascular: Denies Leg Pain / Claudication
Abdomen/GI: Reports No Symptoms
: Reports No Symptoms
Musculoskeletal: Reports No Symptoms
Skin: Reports No Symptoms
Neurological: Reports Weakness
Endocrine: Reports No Symptoms
Physical Exam
Vital Signs
Temp Pulse Resp BP Pulse Ox
97.5 F 75 14 120/65 95
07/12/23 08:02 07/12/23 08:12 07/12/23 08:02 07/12/23 08:12 07/12/23 08:07
Lab Results
07/11/23 06:33
07/12/23 06:31
Troponin I < 0.012 ng/ml 07/09/23 22:44
Physical Exam
General: Well Developed, Well Nourished and No Apparent Distress
HEENT: Normocephalic and Atraumatic
Respiratory: Non Labored Respirations
Cardiac: Negative JVD
GI: Soft, Non Tender and Non Distended
Musculoskeletal: No Clubbing, No Cyanosis and No Edema
Skin: Warm
Neuro: Awake, Alert, Oriented and Other (Mild right leg weakness)
Psych: Calm
Assessment / Plan
-
63-year-old male with new CVA, MRI findings suggest possible carotid dissection/mural thrombus
Plan:
-Carotid ultrasound
-Nephrology consult to optimize for CTA head neck
-Possible need for revascularization next week
-Will follow-up with patient and team with plan after scans complete
--- NOTE | 2023-07-12 09:40 | W.PN.UPDATE ---
Addendum entered and electronically signed by Michael Martinez MD 07/12/23 14:51:
Patient's daughter informed me that creatinine baseline is 1.9 (she reviewed records from 2020 and 2022 from [facility]). Therefore patient appears to be at baseline in terms of creatinine. I discussed via Dequincy text with nephrology who agrees
that this is baseline and therefore likely could proceed with CTA with adequate hydration.
Addendum entered and electronically signed by Michael Martinez MD 07/12/23 14:43:
Note I called patient's daughter Kiran ([phone]) and updated her as to findings/plan.
Original Note:
Update Note
Progress Note Update
Seen and examined with DROP PIT WORKER. Full consult to follow. Briefly 63-year-old male with acute onset yesterday of right upper extremity and lower extremity weakness. Workup demonstrated multiple left hemispheric infarcts. Note patient is primarily Etta
speaking, but he is able to speak Argentine and I was able to converse with him. He denies any recent episodes of amaurosis, additional episodes of weakness, no speech dysarthria or expressive aphasia. He is right-hand dominant. He denies any
history of coronary artery disease. He does note history of hypertension for which she was on some medications while he was in [facility] but he stopped that about 7 months ago when he moved to this country. He notes new onset diabetes (diagnosed
on this admission). History of tobacco use as well 30 years ago he quit, prior to that smoked for about 15 to 20 years.
Patient does note improvement of his right upper and lower extremity symptoms today compared to yesterday.
On exam/ He is awake and alert. Head is normocephalic and atraumatic. Eyes are anicteric. Neck is soft without jugular venous distention. Breathing is unlabored. Abdomen is soft. Feet are warm with right-sided 2+ DP pulse, left side 2+ PT
pulse palpable. Neurologically as noted mild right lower extremity weakness though he is able to move against resistance.
MRI images reviewed. Report reviewed.
Plan/ Left carotid stenosis, symptomatic. Difficult to ascertain the exact percentage stenosis on MRA nor it was indicated in the report. There is an irregular what appears to be hemorrhagic plaque or mural thrombus. I am not clear that this is a
dissection. I find MRA imaging somewhat less accurate in terms of plaque distinction. I think I would definitely favor CT angiogram imaging. In the meanwhile we will obtain carotid duplex as well. CT angiogram would help delineate the plaque as
well as the degree of stenosis. If there is no stenosis greater than 50%, then would favor management with dual antiplatelet therapy. Alternatively if there is a true dissection of the carotid artery, then would favor anticoagulation for 6 months.
However there are certainly risks with this and that he has multiple left hemispheric infarcts. Finally, if this is a mural thrombus/plaque related stenosis, and the degree of stenosis is greater than 50% then he likely would benefit from
revascularization (likely CEA versus TCAR). Discussed with him likely recommendation for revascularization. Would favor CT angiogram imaging. However his renal function is slightly elevated. Therefore would recommend renal optimization,
consideration for nephrology consultation. And then once optimized and prehydrated then would pursue CT angiogram as I think that the benefits here outweighed the risks. If as suspected patient requires revascularization, likely plan early to mid
next week revascularization (likely 07/18/2023). Cardiology evaluation already performed, appreciate assessment from a cardiac perspective for surgical risk. Plan communicated to hospitalist and discussed with neurologist. (Timing also discussed
briefly with neurologist. Though they are relatively small infarcts, multiple infarcts and therefore would need to wait at least 48 hours or so prior to revascularization to reduce hemorrhagic conversion).
[2023-07-12] MEDS: NSS 1000 IV ×2 (11:18→20:34)
[2023-07-12 11:24] LABS: Glucose - Point of Care 174 mg/dl (70-99)
--- NOTE | 2023-07-12 12:40 | W.PN.HOSP.TC ---
Today's Communication/Plan
-
continue DAPT - Eliquis when ok with Neuro
Renal consult to optimize for CT-A
possibly vascular intervention pending CT-A results
Follow Neuro and Cards recs
Assessment / Plan
Assessment / Plan
Assessment:
RUE weakness
- MRI brain: MANY ACUTE ISCHEMIC INFARCTS in the LEFT CEREBRAL HEMISPHERE MIDDLE CEREBRAL ARTERY TERRITORY involving cortical roper matter in the left frontal lobe, left parietal lobe, and superior left occipital lobe (including a 2.5 cm acute
ischemic infarct in the left frontal lobe precentral gyrus). Mild to moderate white matter leukoaraiosis in the frontal and parietal lobes. Mild paranasal sinus mucosal disease.
- MRA: Short segment of nonocclusive dissection and mural thrombus involving the proximal left internal carotid artery extending over approximately 1.9 cm in length. No additional focal hemodynamically significant stenosis, aneurysm or occlusion.
- Vascular US: pending
- Will need CT-A When optimized from renal standpoint. Vascular consulted
- Echo: Normal left ventricular size, wall thickness and systolic function. EF 62%. No significant valvular disease. Interatrial septum is intact with no evidence of shunting by 2D, color Doppler, and agitated saline bubble study.
- continue Aspirin/Plavix; later add Eliquis when ok with Neurology
- HbA1c is 6.8% (see below)
- LDL is 168; statin added
- neuro checks
- therapy evals recommend acute rehab, PMR consulted
- Neurology following
- Cardiology following; initially planned for ILR but patient declined. EP to review strips; short paroxysms of AFib were identified.
Neck pain
- MRI C spine: MODERATE-SIZED MULTILEVEL DISC HERNIATIONS throughout the cervical spine. MODERATE SPINAL CORD COMPRESSION and CENTRAL CANAL STENOSIS at C3/C4, C4/C5, and C5/C6. Mild spinal cord compression and central canal stenosis at C2/C3.
Moderate discogenic degenerative disease at C5/C6. Severe right neural foraminal narrowing at C5/C6. Large 2.4 cm left lobe thyroid nodule.
- Lyrica 25mg BID for pain relief
- discussed results with Neurosurgery; they will evaluate patient outpatient as cannot consider surgery currently with acute CVA.
New diagnosed type 2 DM
- dietary eval and adaptive physical educator
- continue SSI
- continue Metformin renally dosed
Essential Hypertension
- continue amlodipine
- hold ARB with ANNA
ANNA on CKD, stage 3B
- monitor BMP; no baseline labs available
- bladder scan/SC protocol
- FENA pre-renal
- continue IVF
- consult Nephrology to optimize renal function for CT-A
- hold ARB
DVT ppx: SCDs
Code: Full
d/w daughter and updated
Anticipated Discharge: > 48 hours
Subjective/Interval History
-
Date of Service: July 12, 2023
denies any complaints
Objective Data
-
Labs:
Laboratory Results
07/12/23
06:31
Sodium 139
Potassium 4.6
Chloride 106
Carbon Dioxide 22
BUN 45 H
Creatinine 2.3 H
Glucose 111 H
Calcium 8.9
Vital Signs:
Vital Signs
Temp Pulse Resp BP Pulse Ox
97.4 F 88 17 143/87 95
07/12/23 11:36 07/12/23 11:36 07/12/23 11:36 07/12/23 11:36 07/12/23 11:36
I&O
07/11/23 07/12/23 07/13/23
06:59 06:59 06:59
Intake Total 910 / 910 960 / 960
Output Total 300 / 300
Balance 910 / 910 660 / 660
Physical Exam
-
General: No Apparent Distress
HEENT: Normocephalic and Atraumatic
Respiratory: Negative Wheezes or Rales
Cardiac: Regular Rhythm and S1/S2
GI: Soft and Nontender
Genito-urinary: No Costovertebral Tender
Neuro: AO x 3
Hematologic / Lymphatic: No Lymphadenopathy
Psych: Calm
Data Reviewed
-
Total Time Spent with Patient (in minutes): 42
Labs: Labs Reviewed by me
[2023-07-12] MEDS: NOVOLOG FLEXPEN-LOW RESISTANCE 1 UNITS SC (13:11)
--- NOTE | 2023-07-12 13:44 | PTCARENOTE ---
Diabetes Education- Follow up visit for glucometer instructions, family at bedside. Daughter acting as core stripper. Reviewed testing pattern, expected result and rationale for testing. He was able to return demonstrate using proper technique. Result
112 mg/dl pre lunch. Information marked in take home education booklet. they are aware to call with any questions.
--- NOTE | 2023-07-12 15:19 | W.CON.NEPH ---
Consultation
-
Date/Time Consultation Requested: 49:44AM
Date/Time Consultation Performed: 07/12/2023 3:19PM
Requesting Provider: Kb Burrell
Performing Provider: Mikayla Gomez
Reason for Consultation: ANNA vs. CKD
Medical History
-
Chief Complaint: ANNA vs. CKD
History of Present Illness:
Mr. Herron is a 63YOM with PMH of CKD Stage 3B, HTN, T2DM, neck pain who presents to the hospital with RUE weakness. He states that his RUE weakness is much improved at this time. Fortunately, the patient's family is at bedside and assisted in
providing some history. 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 Was told that his kidneys were small. Does endorse frequent UTIs as a child and young adult. States that currently he is
feeling well. Has not noticed any changes in urination.
Past Medical History
CKD Stage 3B
HTN
T2DM
neck pain
Past Surgical History: None
Social History
Tobacco: Former Smoker (quit many years prior)
Alcohol: None
Drug: None
Personal:
Living: With Family
Family History
Family History: Not Pertinent
Allergies / Home Medications
Allergy/AdvReac Type Severity Reaction Status Date / Time
No Known Allergies Allergy Verified 07/09/23 23:10
�Medication �Instructions �Recorded �Confirmed �Type
calcitriol 0.25 mcg capsule 0.25 mcg PO DAILY Kidney Disease 07/09/23 07/09/23 History
calcium carbonate 500 mg-vitamin 1 tab PO DAILY Supplement 07/09/23 07/09/23 History
D3 5 mcg (200 unit) tablet
(Calcium 500 + D)
febuxostat 40 mg tablet 40 mg PO DAILY Gout 07/09/23 07/09/23 History
telmisartan 40 mg-amlodipine 5 mg 1 tab PO DAILY Blood Pressure 07/09/23 07/09/23 History
tablet
Review of Systems
-
History Source: Patient and Family
All other systems: Negative unless noted
Physical Exam
Vital Signs
Vital Signs
Temp Pulse Resp BP Pulse Ox
97.4 F 88 17 143/87 95
07/12/23 11:36 07/12/23 11:36 07/12/23 11:36 07/12/23 11:36 07/12/23 11:36
Lab Results
WBC 7.4 10^3/uL (4.8-10.8) 07/11/23 06:33
RBC 4.98 10^6/uL (4.70-6.10) 07/11/23 06:33
Hgb 14.6 g/dL (13.0-18.0) 07/11/23 06:33
Hct 44.0 % (39.0-52.0) 07/11/23 06:33
Plt Count 254 10^3/uL (130-400) 07/11/23 06:33
Sodium 139 mmol/L (135-145) 07/12/23 06:31
Potassium 4.6 mmol/L (3.5-5.1) 07/12/23 06:31
Chloride 106 mmol/L (98-107) 07/12/23 06:31
Carbon Dioxide 22 mmol/L (22-30) 07/12/23 06:31
BUN 45 mg/dl (9-20) H 07/12/23 06:31
Creatinine 2.3 mg/dL (0.7-1.3) H 07/12/23 06:31
eGFR 30.93 07/12/23 06:31
Glucose 111 mg/dl (70-99) H 07/12/23 06:31
Calcium 8.9 mg/dl (8.4-10.2) 07/12/23 06:31
Albumin 4.5 g/dl (3.5-5.0) 07/09/23 22:44
Physical Exam
General: AOx3, No Distress and Nontoxic
HEENT: PERRL, EOMI, Anicteric, Conjunctivae Clear, Ear/Nose Intact, Hearing Normal, Oropharynx Clear/Moist, Dentition Intact, Facial Symmetry, Neck Supple, Trachea Midline, No JVD and No Thyromegaly
Respiratory: Clear
Cardiac: S1/S2, Regular Rate/Rhythm and No Edema
Breast: N/A
Abdomen: Soft, Nontender, Nondistended and Normal Bowel Sounds
Rectal: Deferred by Provider
Genito-urinary: No Costovertebral Tender
Musculoskeletal: No Clubbing, No Cyanosis and No Edema
Skin: No Rash, Warm and Dry
Neuro: Nonfocal/Grossly Intact
Hematologic/Lymphatic: No Cervical Lymphadenopathy
Psych: Mood/afflect pleasant and Insight/judgement good
Data Reviewed
-
CT Scan: Report Reviewed by me (head CT with no acute intracranial process)
Assessment/Plan
-
Assessment:
RUE weakness -- found to have many acute ischemic infarcts
T2DM
HTN
CKD 3B (bl Cr 1.9)
Plan:
Cr appears to be at baseline fortuantely
plan for CTA with vascular
please hydrate with LR 75cc/hr 6 hours pre and post imaging
--- NOTE | 2023-07-12 15:50 | PTCARENOTE ---
Pt AAO x3, VALLE well, OOB to BR/ambulated in schwartz with PT; travis well, Pt denies weakness/dizziness; states RLE 'feels heavy'. NIHSS 1. VSS. Telemetry:NSR. On room air- pulse ox 92%, no c/o SOB. Abd large, soft, travis PO well. Voiding in BR without
difficulty. IVF's NSS @ 70 ml/hr infusing via Lt forearm site without sx of infiltration. Resting in chair at present, no c/o. Will continue to monitor.
[2023-07-12 16:23] LABS: Glucose - Point of Care 139 mg/dl (70-99)
[2023-07-12] MEDS: GLUCOPHAGE 500 MG PO (17:39)
[2023-07-12] MEDS: LIPITOR 80 MG PO (17:39)
[2023-07-12 21:38] LABS: Glucose - Point of Care 133 mg/dl (70-99)
[2023-07-13] VITALS (9 sets, daily range): BP systolic 125–179; BP diastolic 86–110; PULSE 85–89; O2SAT 99
[2023-07-13 07:40] LABS: Glucose - Point of Care 106 mg/dl (70-99)
[2023-07-13 07:41] LABS: Blood Urea Nitrogen 41 mg/dl (9-20); Calcium 9.3 mg/dl (8.4-10.2); Carbon Dioxide 22 mmol/L (22-30); Chloride 107 mmol/L (98-107); Estimated Creatinine Clearance 35 ml/min; Glucose 93 mg/dl (70-99); Potassium 4.7 mmol/L (3.5-5.1); Sodium 139 mmol/L (135-145); eGFR 38.91
--- NOTE | 2023-07-13 07:51 | W.PN.NEURO.1 ---
Addendum entered and electronically signed by Jacob Avila MD 07/13/23 16:22:
Reviewed the CTA head and neck images. Abnormality at the left proximal ICA is seen in the range of 50% possibly slightly more stenosis, I feel this is more likely soft plaque and thrombus adhering to the wall of the vessel than a psuedo-lumen or
dissection flap, and clinical context of vascular risk factors I feel makes atherosclerotic disease more likely than a dissection. Patient also had no risk factors for carotid dissection. Carotid ultrasound supporting 50-69% stenosis on the left
ICA.
Would continue to presume that this carotid lesion is the source of the patient's left MCA stroke. Discussed with Dr Martinez that revascularization I do think would be warranted.
In the meantime would stop clopidogrel, continue on aspirin and place on heparin infusion given the risk of further embolic events from the plaque/thrombus. This will entail some risk of hemorrhagic conversion on the brain but I feel the risk is
acceptable given the risk for future stroke from the carotid lesion and the infarct burden on the brain is not large. Will repeat CT head non contrast tomorrow and monitor neuroogic exam closely.
Original Note:
Today's Communication / Plan
-
-Hydration and planning for CTA head and neck
-Continue DAPT therapy
-Neurochecks and NIH scales
-Goal normotension avoid aggressive treatment of BP with IV medications unless SBP is more than 180
-If CTA results supportive of stenosis rather than dissection tentatively OR for carotid revascularization next week
Neuro Assessment/Plan
Assessment
63-year-old male with a past medical history of obesity hyperlipidemia CKD presented to hospital with sudden onset right-sided weakness also did have some neck pain
MRI brain demonstrates acute stroke in the left MCA territory is embolic appearing
MRA of the head does show a lesion within the distal common carotid and proximal internal carotid artery, mural thrombus is seen along with narrowing, no clear dissection flap, narrowing and tapering is seen
Carotid ultrasound supports 50-69% stenosis and soft plaque on left internal carotid artery
Patient with no significant cause for a carotid artery dissection no significant head trauma or inciting events for dissection, while carotid dissection is possible it seems a strong possibility that this is more of an atherosclerotic plaque with
associated mural thrombus and stenosis
Regardless the left carotid lesion is definitely the cause of his ischemic stroke
Subjective/Objective
Subjective Data
Date of Service: July 13, 2023
No acute events, had carotid ultrasound, discussed artery as source of stroke, CTA imaging, he denies headache and speech difficulty, right arm is improved strength but not at 100% normal
Objective Data
Vital Signs
Temp Pulse Resp BP Pulse Ox
97.9 F 86 18 128/86 96
07/13/23 03:00 07/13/23 03:00 07/13/23 03:00 07/13/23 03:00 07/13/23 03:00
Lab Results
07/11/23 06:33
07/13/23 06:31
PT 13.0 Sec (11.4-14.6) 07/09/23 22:44
INR 1.00 07/09/23 22:44
APTT 31.6 Sec (23.4-35.0) 07/09/23 22:44
Sodium 139 mmol/L (135-145) 07/13/23 06:31
Potassium 4.7 mmol/L (3.5-5.1) 07/13/23 06:31
BUN 41 mg/dl (9-20) H 07/13/23 06:31
Glucose 93 mg/dl (70-99) 07/13/23 06:31
Calcium 9.3 mg/dl (8.4-10.2) 07/13/23 06:31
LDL Cholesterol, Calc 168 mg/dl 07/10/23 05:24
Patient Allergies
No Known Allergies Allergy (Verified 07/09/23 23:10)
Review of Systems
-
History Source: Patient
All other systems: Reviewed and negative
Constitutional: No Symptoms
EENT: No Symptoms Reported
Respiratory: No Symptoms
Cardiac: No Symptoms
Abdomen/GI: No Symptoms
Genitourinary: No Symptoms
Musculoskeletal: No Symptoms
Skin: No Symptoms
Neuro: Weakness
Endocrine: No Symptoms
Hematologic / Lymphatic: No Symptoms
Allergy / Immunology: No Symptoms
Physical Exam
-
General: Well Developed and Well Nourished
Eyes: No Ptosis
HEENT: Normocephalic
Neck: No Bruits Bilaterally
Respiratory: Clear to Auscultation
Cardiac: Regular Rhythm
GI: Normal Bowel Sounds
Skin: Unremarkable
Extremities: No Clubbing
Psych: Unremarkable
Extended Neurological Exam
Mood & Affect: Mood Unremarkable and Affect Unremarkable
Attention Span & Concentration: Awake, Alert and Interactive
Memory: Unremarkable
Tremor: Hand Tremor Absent
Involuntary Movement: None
Speech: Quality Unremarkable and Quantity Unremarkable; Negative Expressive Aphasia or Receptive Aphasia
Cranial Nerve II: Left Eye: Pupillary Reactivity Unremarkable, Pupillary Size Unremarkable and Visual Klein Intact
Cranial Nerve II: Right Eye: Pupillary Reactivity Unremarkable, Pupillary Size Unremarkable and Visual Klein Intact
Cranial Nerves III, IV, : Extraocular Movement: Extraocular Movement Full in all Directions
Muscle Strength, Overall: Other (Very minor right arm shoulder abduction and flexion weakness 4+/5)
Pronator Drift: Drift in Right Upper Extremity
Coordination: [id number]-[id number] Testing Unremarkable
Babinski Sign: Absent Bilaterally
Data Reviewed
-
CT-A: Ordered and Pending
CT Head: Report Reviewed and Image Reviewed
MRI Head: Report Reviewed and Image Reviewed
MRA Head: Report Reviewed and Image Reviewed
MRA Neck: Report Reviewed and Image Reviewed
Echocardiogram: Report Reviewed
Labs: Report Reviewed
[2023-07-13] MEDS: NOVOLOG FLEXPEN-LOW RESISTANCE SC ×3 (08:22→17:30)
[2023-07-13] MEDS: LYRICA 25 MG PO ×2 (08:23→20:50)
[2023-07-13] MEDS: LIDOCAINE 4% PATCH 1 PATCH TOPICAL (08:23)
[2023-07-13] MEDS: LOW STRENGTH ASPIRIN 81 MG PO (08:23)
[2023-07-13] MEDS: ULORIC 40 MG PO (08:23)
[2023-07-13] MEDS: PLAVIX 75 MG PO (08:23)
[2023-07-13] MEDS: ROCALTROL 0.25 MCG PO (08:23)
[2023-07-13] MEDS: NORVASC 5 MG PO (08:24)
[2023-07-13] MEDS: LR 1000 IV ×2 (08:25→21:38)
--- NOTE | 2023-07-13 08:59 | W.PN.HOSP.TC ---
Today's Communication/Plan
-
IVF and await CT-A results
Assessment / Plan
Assessment / Plan
Assessment:
RUE weakness
- MRI brain: MANY ACUTE ISCHEMIC INFARCTS in the LEFT CEREBRAL HEMISPHERE MIDDLE CEREBRAL ARTERY TERRITORY involving cortical roper matter in the left frontal lobe, left parietal lobe, and superior left occipital lobe (including a 2.5 cm acute
ischemic infarct in the left frontal lobe precentral gyrus). Mild to moderate white matter leukoaraiosis in the frontal and parietal lobes. Mild paranasal sinus mucosal disease.
- MRA: Short segment of nonocclusive dissection and mural thrombus involving the proximal left internal carotid artery extending over approximately 1.9 cm in length. No additional focal hemodynamically significant stenosis, aneurysm or occlusion.
- Vascular US: Left: Soft plaque is identified in the proximal and mid internal carotid artery. Carotid velocity profile is consistent with 50 to 69% stenosis. Vertebral artery flow is antegrade. Right: Soft plaque is identified in the proximal to
mid internal carotid artery. Carotid velocity measurements are consistent with less than 50% stenosis. Vertebral artery flow is antegrade.
- CT-A planned today with IVF to help mitigate risk contrast injury to kidney.
- Echo: Normal left ventricular size, wall thickness and systolic function. EF 62%. No significant valvular disease. Interatrial septum is intact with no evidence of shunting by 2D, color Doppler, and agitated saline bubble study.
- continue Aspirin/Plavix; later add Eliquis when ok with Neurology
- HbA1c is 6.8% (see below)
- LDL is 168; statin added
- neuro checks
- therapy evals recommend acute rehab, PMR consulted
- Neurology following
- Cardiology following; initially planned for ILR but patient declined. EP to review strips; short paroxysms of AFib were identified.
Neck pain
- MRI C spine: MODERATE-SIZED MULTILEVEL DISC HERNIATIONS throughout the cervical spine. MODERATE SPINAL CORD COMPRESSION and CENTRAL CANAL STENOSIS at C3/C4, C4/C5, and C5/C6. Mild spinal cord compression and central canal stenosis at C2/C3.
Moderate discogenic degenerative disease at C5/C6. Severe right neural foraminal narrowing at C5/C6. Large 2.4 cm left lobe thyroid nodule.
- Lyrica 25mg BID for pain relief
- discussed results with Neurosurgery; they will evaluate patient outpatient as cannot consider surgery currently with acute CVA.
New diagnosed type 2 DM
- dietary eval and para educator
- continue SSI
- continue Metformin renally dosed
Essential Hypertension
- continue amlodipine
- hold ARB with ANNA
ANNA on CKD, stage 3B
- Cr baseline 1.9
- monitor BMP; no baseline labs available
- bladder scan/SC protocol
- FENA pre-renal
- continue IVF (LR to optimize for CTA)
- hold ARB
- Nephrology following
DVT ppx: SCDs
Code: Full
d/w daughter and updated
Anticipated Discharge: > 48 hours
Subjective/Interval History
-
Date of Service: July 13, 2023
no new complaints, RUE weakness improving
for CT-A today
Objective Data
-
Labs:
Laboratory Results
07/13/23
06:31
Sodium 139
Potassium 4.7
Chloride 107
Carbon Dioxide 22
BUN 41 H
Creatinine 1.9 H
Glucose 93
Calcium 9.3
Vital Signs:
Vital Signs
Temp Pulse Resp BP Pulse Ox
97.9 F 86 18 128/86 96
07/13/23 03:00 07/13/23 03:00 07/13/23 03:00 07/13/23 03:00 07/13/23 03:00
I&O
07/12/23 07/13/23 07/14/23
06:59 06:59 06:59
Intake Total 960 / 960 2560 / 2560
Output Total 300 / 300
Balance 660 / 660 2560 / 2560
Physical Exam
-
General: No Apparent Distress
HEENT: Normocephalic and Atraumatic
Respiratory: Negative Wheezes
Cardiac: Regular Rhythm and S1/S2
GI: Soft
Genito-urinary: No Costovertebral Tender
Musculoskeletal: No Edema
Neuro: AO x 3
Hematologic / Lymphatic: No Lymphadenopathy
Psych: Calm
Data Reviewed
-
Total Time Spent with Patient (in minutes): 42
Labs: Labs Reviewed by me
--- NOTE | 2023-07-13 10:04 | W.PN.NEPH.PH ---
Today's Communication / Plan
-
IVF
Assessment/Plan
-
Assessment:
RUE weakness -- found to have many acute left ischemic infarcts
T2DM
HTN
CKD 3B (bl Cr 1.9)
left carotid artery dissection
Plan:
follow BMP
continue LR IVF
for CTA today
-
-
Date of Service: July 13, 2023
CC / HPI / ROS
-
Chief Complaint:
CKD3/ANNA
History of Present Illness:
Cr down to 1.9
BP stable
right sided weakness improving
Review of Systems:
no CP/SOB
Labs
-
Labs:
WBC 7.4 10^3/uL (4.8-10.8) 07/11/23 06:33
RBC 4.98 10^6/uL (4.70-6.10) 07/11/23 06:33
Hgb 14.6 g/dL (13.0-18.0) 07/11/23 06:33
Hct 44.0 % (39.0-52.0) 07/11/23 06:33
Plt Count 254 10^3/uL (130-400) 07/11/23 06:33
Sodium 139 mmol/L (135-145) 07/13/23 06:31
Potassium 4.7 mmol/L (3.5-5.1) 07/13/23 06:31
Chloride 107 mmol/L (98-107) 07/13/23 06:31
Carbon Dioxide 22 mmol/L (22-30) 07/13/23 06:31
BUN 41 mg/dl (9-20) H 07/13/23 06:31
Creatinine 1.9 mg/dL (0.7-1.3) H 07/13/23 06:31
eGFR 38.91 07/13/23 06:31
Glucose 93 mg/dl (70-99) 07/13/23 06:31
Calcium 9.3 mg/dl (8.4-10.2) 07/13/23 06:31
Albumin 4.5 g/dl (3.5-5.0) 07/09/23 22:44
Physical Exam
-
Vital Signs:
Vital Signs
Temp Pulse Resp BP Pulse Ox
97.8 F 72 18 153/96 98
07/13/23 07:55 07/13/23 07:55 07/13/23 07:55 07/13/23 07:55 07/13/23 07:55
Cardiovascular:: Regular rate and rhythm
Respiratory:: Bilateral: Coarse
Lung Excursion:: Normal
Abdomen:: Nontender and Soft
Bowel Sounds:: Normal
Extremity Edema:: None: Bilateral:
--- NOTE | 2023-07-13 10:20 | W.PN.CD ---
Today's Communication / Plan
-
Additional assessment for management of Short segment nonocclusive dissection and mural thrombus involving left internal carotid artery.
If patient requires carotid surgery he appears stable from a cardiac standpoint. Please see body of note.
Continue to monitor on telemetry for PAF
Anticoagulation for PAF when safe from a neurostandpoint
Impression / Plan
-
63M with hypertension and new onset DM admitted with subacute ischemic stroke in the left MCA territory. Consideration for possible loop today.
CVA:
-Many acute ischemic infarcts in left cerebral hemisphere middle cerebral artery territory
-on ASA, plavix, statin
-Rhythm strip showed A-fib
-CHADSVASC of 4 and will be 5 when he turns 64 in 1 year (HTN CVA and DM)
- Eliquis 5 mg bid when OK from neurology
-In addition to the above patient had a neck MRI 07/11/2023 which showed short segment nonocclusive dissection and mural thrombus involving the proximal left internal carotid artery extending over 1.9 cm in length. B
HTN:
-stable
-Some mildly elevated pressures. Monitor.
Dyslipidemia:
-now on high-intensity statin
DM:
-hgba1C 6.8
-new diagnosis, management per primary
Abnormal renal function:
-Hx CKD per chart
-ARB Held, fluids given
-w/u per primary team
Preoperative examination. Is possible patient will require carotid surgery. Patient no known history of coronary disease and no symptoms to suggest angina. Prior to hospitalization patient was able to walk up a flight of stairs without symptoms.
Euvolemic on exam. ECG 07/09/2023 with sinus rhythm and no acute abnormality. Patient was reported to have a rhythm strip with A-fib. Normal left ventricular function by echo. Patient has some increased cardiac risk considering history of A-fib
as well as a history of vascular disease however cardiac issues are currently stable if patient requires surgery. No additional cardiac testing would be required. Would continue to monitor on telemetry
TTE: CONCLUSIONS
Normal left ventricular size, wall thickness and systolic function. LV ejection
fraction is 62%.
No significant valvular disease.
Interatrial septum is intact with no evidence of shunting by 2D, color Doppler,
and agitated saline bubble study.
Physical Exam
Vital Signs/Labs
Vital Signs
Temp Pulse Resp BP Pulse Ox
97.8 F 72 18 153/96 98
07/13/23 07:55 07/13/23 07:55 07/13/23 07:55 07/13/23 07:55 07/13/23 07:55
07/11/23 06:33
07/13/23 06:31
PT 13.0 Sec (11.4-14.6) 07/09/23 22:44
INR 1.00 07/09/23 22:44
APTT 31.6 Sec (23.4-35.0) 07/09/23 22:44
Magnesium 2.1 mg/dl (1.6-2.3) 07/10/23 05:24
Triglycerides 244 mg/dl (10-149) H 07/10/23 05:24
LDL Cholesterol, Calc 168 mg/dl 07/10/23 05:24
VLDL Cholesterol, Calc 48 mg/dl (0-30) H 07/10/23 05:24
HDL Cholesterol 37 mg/dl 07/10/23 05:24
Physical Exam
Constitutional: No acute distress
Cardiovascular: Rhythm & rate is regular
Respiratory: Respiratory effort normal
GI: Soft
Data Reviewed
-
Date of Service: July 13, 2023
Medical Decision Making: Reviewed Test Results
Echo: Report Reviewed by me
Medical Tests (PFT, Pathology etc): Report Reviewed by me
Labs: Labs Reviewed by me
--- NOTE | 2023-07-13 11:20 | PTOTSP ---
Speech/Language Evaluation
Patient presents with signs concerning for at least mild changes to expressive language (i.e., semantic paraphasias) and short term immediate and delayed word recall based on this evaluation (completed with manager strategic marketing in [place]yr[place]z at patient's
request). Patient endorsed increased word finding difficulty compared to his baseline after acute stroke (left frontal, left parietal, left occipital).
Full speech/language evaluation/therapy recommended after D/C from the acute care level which patient verbalized agreement with.
[2023-07-13 12:07] LABS: Glucose - Point of Care 137 mg/dl (70-99)
--- NOTE | 2023-07-13 16:05 | W.PN.UPDATE ---
Update Note
Progress Note Update
CT angiogram images reviewed. He has significant mural thrombus at the left carotid bulb. Difficult to initially see but does cause it about 50% narrowing of the lumen at that location. This soft plaque/mural thrombus extends cephalad for about a
centimeter to 1.5 cm and then terminates as a projection of the mural thrombus into the lumen. Almost looks like clot. This most likely is the source of his recent stroke events. Based on all this would recommend revascularization as I had
discussed. Would favor anticoagulation in the interval until surgery. Would use heparin so can be turned on and off. Continue observation in the hospital. If any crescendo TIAs or repeated events, will need more urgent surgery. Will transition
from dual antiplatelet to aspirin and heparin drip. I discussed this plan with neurology who is in agreement. Given concern for hemorrhagic conversion, will plan CT scan tomorrow to rule out any bleeding event intracranially and then again on
Sunday. Plan surgery 07/18/2023 left CEA.
--- NOTE | 2023-07-13 16:11 | CM ---
[facility] saw patient regarding no insurance.When closer to dc will need to check n dc needs.
Spoke with Federico Newberry to see if a candidate for acute rehab. If so [facility] and [facility] need to talk if he can qualify.
Speaks Etta.
Family speaks Serbian.
He is not medically ready for discharge.He possibly needs surgery next week.
PLAN Will depend on PT OT evals closer to dc.
[2023-07-13 16:56] LABS: Hematocrit 38.7 % (39.0-52.0); Hemoglobin 13.7 g/dL (13.0-18.0); Mean Corp Hgb Conc. 35.4 g/dL (33.0-37.0); Mean Corpuscular Hgb 29.6 pg (27.0-31.0); Mean Corpuscular Volume 83.6 fL (80.0-94.0); Mean Platelet Volume 9.7 fL (7.4-10.4); Platelet Count 245 10^3/uL (130-400); Red Blood Cell Count 4.63 10^6/uL (4.70-6.10); Red Cell Dist. Width 13.3 % (11.5-14.5); White Blood Cell Count 5.9 10^3/uL (4.8-10.8)
--- NOTE | 2023-07-13 16:57 | W.PN.UPDATE ---
Update Note
Progress Note Update
Seen and evaluated. Neuro stable. Still slight weak RUE /RLE and slight dyscoordination R hand (writing).
Discussed via hyperion developer services - Omar hyperion developer Alysia, hyperion developer #[id number]
Discussed with patient at length findings and plan. Discussed CT findings. Discussed recommendations for revascularization - Left CEA. Discussed technical aspects of procedure, anticipated recovery. Discussed risks including but not limited to
bleeding, infection, cardiac complications/AK, strok (~2-3%, symptomatic). Discussed alternatives of continued medical therapy and alternative of carotid stenting. Discussed my reservations regarding those alternatives. He understands all and
wishes to proceed with LEFT carotid endarterectomy.
Plan surgery Sunday07/15/23. (In two days).
[2023-07-13 17:10] LABS: APTT 32.2 Sec (23.4-35.0)
[2023-07-13 17:15] LABS: Glucose - Point of Care 135 mg/dl (70-99)
[2023-07-13] MEDS: LIPITOR 80 MG PO (17:48)
[2023-07-13] MEDS: GLUCOPHAGE 500 MG PO (17:48)
[2023-07-13] MEDS: HEPARIN 25000 UNITS/250 ML IV (17:54)
[2023-07-13] MEDS: FLUSH (NSS) 1 FLUSH IV (17:56)
[2023-07-13 21:27] LABS: Glucose - Point of Care 237 mg/dl (70-99)
[2023-07-14] VITALS (7 sets, daily range): BP systolic 131–155; BP diastolic 89–93; PULSE 82
[2023-07-14 00:09] LABS: APTT 126.4 Sec (23.4-35.0)
--- NOTE | 2023-07-14 07:06 | W.PN.VS ---
Today's Communication / Plan
-
as above
Assessment/Plan
-
NPO after midnight for CEA tomorrow
Continue heparin drip, do not turn off prior to OR
Discussed with pt via benefits director # [id number]
Subjective Data
-
Date of Service: July 14, 2023
No acute events. No other neurologic sxs
Objective Data
-
Vital Signs
Temp Pulse Resp BP Pulse Ox
97.9 F 110 18 131/90 98
07/14/23 03:40 07/14/23 03:40 07/14/23 03:40 07/14/23 03:40 07/14/23 03:40
Intake and Output
07/13/23 07/14/23 07/15/23
06:59 06:59 06:59
Intake Total 2560 / 2560 3091 / 3091
Balance 2560 / 2560 3091 / 3091
Intake:
Oral fluids 1220 / 1220 1140 / 1140
IV fluids (Total) 1340 / 1340 1800 / 1800
IV piggybacks 151 / 151
Other:
Number of approximated MODERATE 3 4
amounts of urine
Number of approximated LARGE 1
amounts of urine
Lab Results
07/13/23 16:32
Calcium 9.3 mg/dl (8.4-10.2) 07/13/23 06:31
Magnesium 2.1 mg/dl (1.6-2.3) 07/10/23 05:24
Total Bilirubin 0.5 mg/dl (0.2-1.3) 07/09/23 22:44
AST 27 U/L (17-59) 07/09/23 22:44
ALT 22 U/L (0-50) 07/09/23 22:44
Alkaline Phosphatase 108 U/L (38-126) 07/09/23 22:44
Total Protein 8.2 g/dl (6.3-8.2) 07/09/23 22:44
Albumin 4.5 g/dl (3.5-5.0) 07/09/23 22:44
Physical Exam
-
NAD
neck soft, mobile
+2 radial pulses bilaterally
[2023-07-14 07:30] LABS: Glucose - Point of Care 99 mg/dl (70-99)
[2023-07-14 07:54] LABS: APTT 122.4 Sec (23.4-35.0)
--- NOTE | 2023-07-14 08:01 | W.PN.NEURO.1 ---
Today's Communication / Plan
-
-Continue aspirin and statin
-Continue heparin infusion, follow PTT
-CT head non contrast now that on anticoagulation, monitor closely for any severe headache or change in neurologic exam
-Neuro checks NIH scales
-Cardiac telemetry
-Goal normotension
-Planning for OR for carotid revascularization tomorrow
Will follow
Neuro Assessment/Plan
Assessment
63-year-old male with a past medical history of obesity hyperlipidemia CKD presented to hospital with sudden onset right-sided weakness also did have some neck pain
MRI brain demonstrates acute stroke in the left MCA territory is embolic appearing
MRA of the head does show a lesion within the distal common carotid and proximal internal carotid artery, mural thrombus is seen along with narrowing, no clear dissection flap, narrowing and tapering is seen
Carotid ultrasound supports 50-69% stenosis and soft plaque on left internal carotid artery
CTA angiogram on my read appears soft plaque and mural thrombus rather than dissection flap in the proximal left ICA
Patient with no significant cause for a carotid artery dissection no significant head trauma or inciting events for dissection, while carotid dissection is possible it seems a strong possibility that this is more of an atherosclerotic plaque with
associated mural thrombus and stenosis
Regardless the left carotid lesion is definitely the cause of his ischemic stroke
Agree with plans for carotid revascularization
Patient placed on anticoagulation with heparin infusion given concern for mural thrombus to produce embolization
Subjective/Objective
Subjective Data
Date of Service: July 14, 2023
No acute events, denies headache, feels right arm is doing well, not at 100% but good, no speech difficulties, discussed upcoming carotid surgery
Objective Data
Vital Signs
Temp Pulse Resp BP Pulse Ox
97.9 F 110 18 131/90 98
07/14/23 03:40 07/14/23 03:40 07/14/23 03:40 07/14/23 03:40 07/14/23 03:40
Lab Results
07/13/23 16:32
PT 13.0 Sec (11.4-14.6) 07/09/23 22:44
INR 1.00 07/09/23 22:44
APTT 122.4 Sec (23.4-35.0) H 07/14/23 07:02
Sodium 139 mmol/L (135-145) 07/13/23 06:31
Potassium 4.7 mmol/L (3.5-5.1) 07/13/23 06:31
BUN 41 mg/dl (9-20) H 07/13/23 06:31
Glucose 93 mg/dl (70-99) 07/13/23 06:31
Calcium 9.3 mg/dl (8.4-10.2) 07/13/23 06:31
LDL Cholesterol, Calc 168 mg/dl 07/10/23 05:24
Patient Allergies
No Known Allergies Allergy (Verified 07/09/23 23:10)
Review of Systems
-
History Source: Patient
All other systems: Reviewed and negative
Constitutional: No Symptoms
EENT: No Symptoms Reported
Respiratory: No Symptoms
Cardiac: No Symptoms
Abdomen/GI: No Symptoms
Genitourinary: No Symptoms
Musculoskeletal: No Symptoms
Skin: No Symptoms
Neuro: Weakness and See existing Neuro Note
Endocrine: No Symptoms
Hematologic / Lymphatic: No Symptoms
Allergy / Immunology: No Symptoms
Physical Exam
-
General: Comfortable
Eyes: No Ptosis
HEENT: Normocephalic
Neck: No Bruits Bilaterally
Respiratory: Clear to Auscultation
Cardiac: Regular Rhythm
GI: Normal Bowel Sounds
Skin: Unremarkable
Extremities: No Clubbing
Psych: Unremarkable
Extended Neurological Exam
Mood & Affect: Mood Unremarkable and Affect Unremarkable
Attention Span & Concentration: Awake and Alert
Memory: Unremarkable
Tremor: Hand Tremor Absent
Speech: Quality Unremarkable and Quantity Unremarkable; Negative Expressive Aphasia or Receptive Aphasia
Cranial Nerve II: Left Eye: Pupillary Reactivity Unremarkable and Pupillary Size Unremarkable
Cranial Nerve II: Right Eye: Pupillary Reactivity Unremarkable and Pupillary Size Unremarkable
Cranial Nerves III, IV, : Extraocular Movement: Extraocular Movement Full in all Directions
Muscle Strength, Overall: Other (Barely perceptible right arm flexion and shoulder abduction weakness, no drift seen)
Pronator Drift: No Drift in Upper Extremities
Data Reviewed
-
CT-A: Report Reviewed and Image Reviewed
CT Head: Report Reviewed and Image Reviewed
MRI Head: Report Reviewed and Image Reviewed
MRA Head: Report Reviewed and Image Reviewed
MRA Neck: Report Reviewed and Image Reviewed
Carotid Ultrasound: Report Reviewed
Echocardiogram: Report Reviewed
[2023-07-14] MEDS: NOVOLOG FLEXPEN-LOW RESISTANCE SC ×3 (08:49→16:58)
[2023-07-14] MEDS: LIDOCAINE 4% PATCH 1 PATCH TOPICAL (08:49)
[2023-07-14] MEDS: LYRICA 25 MG PO ×2 (08:50→20:00)
[2023-07-14] MEDS: NORVASC 5 MG PO (08:50)
[2023-07-14] MEDS: LOW STRENGTH ASPIRIN 81 MG PO (08:50)
[2023-07-14] MEDS: ULORIC 40 MG PO (08:50)
[2023-07-14] MEDS: ROCALTROL 0.25 MCG PO (08:50)
[2023-07-14] MEDS: LR 1000 IV (09:06)
[2023-07-14 09:14] LABS: Blood Urea Nitrogen 34 mg/dl (9-20); Calcium 9.5 mg/dl (8.4-10.2); Carbon Dioxide 23 mmol/L (22-30); Chloride 105 mmol/L (98-107); Estimated Creatinine Clearance 40 ml/min; Glucose 100 mg/dl (70-99); Sodium 137 mmol/L (135-145); eGFR 44.46
--- NOTE | 2023-07-14 09:38 | W.PN.CD ---
Addendum entered and electronically signed by Tc Boswell MD 07/14/23 11:48:
I saw and examined the patient.
The CAREER DEVELOPMENT FACILITATOR's note was reviewed and I agree with the note.
Comment: OK from cardiac perspective for needed CEA tomorrow. We hope triple therapy (ASA/Plavix/Eliquis) will not be used and if used should be for a very short time. For one year dual therapy with one antiplatelet and full dose Eliquis will be
appropriate. After one year we might opt for a lower bleeding risk by stopping antiplatelet therapy.
Original Note:
Today's Communication / Plan
-
Dr. aMrtinez plans for left carotid endarterectomy tomorrow, 07/15/23.
NPO after midnight and continue IV Heparin drip.
Impression / Plan
-
63M with hypertension and new onset DM admitted with subacute ischemic stroke in the left MCA territory.
CVA:
-Many acute ischemic infarcts in left cerebral hemisphere middle cerebral artery territory
-on ASA, Plavix, statin
-Rhythm strip showed A-fib
-[id number] VASC score of 4 and will be 5 when he turns 64 in 1 year (HTN, CVA, and DM)
-Eliquis 5 mg BID when OK from neurology
-neck MRI 07/11/2023 showed short segment nonocclusive dissection and mural thrombus involving the proximal left internal carotid artery extending over 1.9 cm in length
-evaluation by vascular surgery and they plan for left CEA tomorrow 07/15/23
-continue IV Heparin
HTN:
-stable on meds, continue.
-monitor.
Dyslipidemia:
-now on high-intensity statin, Lipitor 80mg QHS.
-LDL 168 on 07/10/23.
DM:
-hgba1C 6.8
-new diagnosis, management per primary
Abnormal renal function:
-Hx CKD per chart
-ARB Held, fluids given
-w/u per primary team
Testing:
TTE: Normal left ventricular size, wall thickness and systolic function. LV ejection fraction is 62%.
No significant valvular disease.
Interatrial septum is intact with no evidence of shunting by 2D, color Doppler,
and agitated saline bubble study.
Physical Exam
Vital Signs/Labs
Vital Signs
Temp Pulse Resp BP Pulse Ox
97.5 F 72 18 150/93 96
07/14/23 07:00 07/14/23 07:00 07/14/23 07:00 07/14/23 07:00 07/14/23 07:00
07/13/23 16:32
07/14/23 07:02
PT 13.0 Sec (11.4-14.6) 07/09/23 22:44
INR 1.00 07/09/23 22:44
APTT 122.4 Sec (23.4-35.0) H 07/14/23 07:02
Magnesium 2.1 mg/dl (1.6-2.3) 07/10/23 05:24
Triglycerides 244 mg/dl (10-149) H 07/10/23 05:24
LDL Cholesterol, Calc 168 mg/dl 07/10/23 05:24
VLDL Cholesterol, Calc 48 mg/dl (0-30) H 07/10/23 05:24
HDL Cholesterol 37 mg/dl 07/10/23 05:24
Physical Exam
Constitutional: No acute distress
EENT: Anicteric and Moist mucous membranes
Cardiovascular: Rhythm & rate is regular
Respiratory: Respiratory effort normal
GI: Soft and Non tender
Neuro/Psych: AO x 3
Other: Skin (warm, dry)
Data Reviewed
-
Date of Service: July 14, 2023
Medical Decision Making: Reviewed Test Results
EKG: Tracing Personally Visualized and interpreted
Echo: Report Reviewed by me
Old Records: Reviewed
--- NOTE | 2023-07-14 09:43 | W.PN.HOSP.TC ---
Today's Communication/Plan
-
L CEA tomorrow; NPO p MN. IV heparin and repeat CT negative.
Assessment / Plan
Assessment / Plan
Assessment:
RUE weakness
- MRI brain: MANY ACUTE ISCHEMIC INFARCTS in the LEFT CEREBRAL HEMISPHERE MIDDLE CEREBRAL ARTERY TERRITORY involving cortical roper matter in the left frontal lobe, left parietal lobe, and superior left occipital lobe (including a 2.5 cm acute
ischemic infarct in the left frontal lobe precentral gyrus). Mild to moderate white matter leukoaraiosis in the frontal and parietal lobes. Mild paranasal sinus mucosal disease.
- MRA: Short segment of nonocclusive dissection and mural thrombus involving the proximal left internal carotid artery extending over approximately 1.9 cm in length. No additional focal hemodynamically significant stenosis, aneurysm or occlusion.
- Vascular US: Left: Soft plaque is identified in the proximal and mid internal carotid artery. Carotid velocity profile is consistent with 50 to 69% stenosis. Vertebral artery flow is antegrade. Right: Soft plaque is identified in the proximal to
mid internal carotid artery. Carotid velocity measurements are consistent with less than 50% stenosis. Vertebral artery flow is antegrade.
- CT-A: Short segment dissection of the proximal left internal carotid artery as seen on prior MR angiogram. Associated less than 50% narrowing of the internal carotid artery. There is also approximately 50% narrowing of the origin of the left
internal carotid artery secondary to noncalcified plaque.
- Echo: Normal left ventricular size, wall thickness and systolic function. EF 62%. No significant valvular disease. Interatrial septum is intact with no evidence of shunting by 2D, color Doppler, and agitated saline bubble study.
- continue Aspirin
- continue statin; LDL is 168
- IV heparin drip per Vascular - requires intensive monitoring. CEA planned 07/14.
- neuro checks
- therapy evals recommend acute rehab, PMR consulted
- Neurology following
- Cardiology following; initially planned for ILR but patient declined. EP to review strips; short paroxysms of A.Fib were identified. Eventually Eliquis transition.
Neck pain
- MRI C spine: MODERATE-SIZED MULTILEVEL DISC HERNIATIONS throughout the cervical spine. MODERATE SPINAL CORD COMPRESSION and CENTRAL CANAL STENOSIS at C3/C4, C4/C5, and C5/C6. Mild spinal cord compression and central canal stenosis at C2/C3.
Moderate discogenic degenerative disease at C5/C6. Severe right neural foraminal narrowing at C5/C6. Large 2.4 cm left lobe thyroid nodule.
- Lyrica 25mg BID for pain relief
- discussed results with Neurosurgery; they will evaluate patient outpatient as cannot consider surgery currently with acute CVA.
New diagnosed type 2 DM
- dietary eval and community educator
- continue SSI
- continue Metformin renally dosed
Essential Hypertension
- continue amlodipine
- hold ARB with ANNA
ANNA on CKD, stage 3B
- Cr baseline 1.9
- monitor BMP; no baseline labs available
- bladder scan/SC protocol
- FENA pre-renal
- hold ARB
- Nephrology following
DVT ppx: SCDs
Code: Full
d/w daughter and updated
Anticipated Discharge: > 48 hours
Subjective/Interval History
-
Date of Service: July 14, 2023
no new complaints
for CEA tomorrow
Objective Data
-
Labs:
Laboratory Results
07/13/23 07/14/23 07/14/23
23:40 07:02 14:10
APTT 126.4 H 122.4 H Pending
Sodium 137
Potassium 5.0
Chloride 105
Carbon Dioxide 23
BUN 34 H
Creatinine 1.7 H
Glucose 100 H
Calcium 9.5
Vital Signs:
Vital Signs
Temp Pulse Resp BP Pulse Ox
97.5 F 72 18 150/93 96
07/14/23 07:00 07/14/23 07:00 07/14/23 07:00 07/14/23 07:00 07/14/23 07:00
I&O
07/13/23 07/14/23 07/15/23
06:59 06:59 06:59
Intake Total 2560 / 2560 3091 / 3091
Balance 2560 / 2560 3091 / 3091
Physical Exam
-
General: No Apparent Distress
HEENT: Normocephalic and Atraumatic
Respiratory: Negative Wheezes
Cardiac: Regular Rhythm
GI: Soft
Genito-urinary: No Costovertebral Tender
Neuro: AO x 3
Psych: Calm
Data Reviewed
-
Total Time Spent with Patient (in minutes): 45
Labs: Labs Reviewed by me
--- NOTE | 2023-07-14 11:12 | W.PN.NEPH.PH ---
Today's Communication / Plan
-
follow BMP
Assessment/Plan
-
Assessment:
RUE weakness -- found to have many acute left ischemic infarcts
T2DM
HTN
CKD 3B (bl Cr 1.9)
left carotid artery dissection
Plan:
follow BMP
cap LR IVF
for left CEA tomorrow
-
-
Date of Service: July 14, 2023
CC / HPI / ROS
-
Chief Complaint:
CKD3/ANNA
History of Present Illness:
Cr down to 1.7
BP stable
right sided weakness improving
eating well
Review of Systems:
no CP/SOB
Labs
-
Labs:
WBC 5.9 10^3/uL (4.8-10.8) 07/13/23 16:32
RBC 4.63 10^6/uL (4.70-6.10) L 07/13/23 16:32
Hgb 13.7 g/dL (13.0-18.0) 07/13/23 16:32
Hct 38.7 % (39.0-52.0) L 07/13/23 16:32
Plt Count 245 10^3/uL (130-400) 07/13/23 16:32
Sodium 137 mmol/L (135-145) 07/14/23 07:02
Potassium 5.0 mmol/L (3.5-5.1) 07/14/23 07:02
Chloride 105 mmol/L (98-107) 07/14/23 07:02
Carbon Dioxide 23 mmol/L (22-30) 07/14/23 07:02
BUN 34 mg/dl (9-20) H 07/14/23 07:02
Creatinine 1.7 mg/dL (0.7-1.3) H 07/14/23 07:02
eGFR 44.46 07/14/23 07:02
Glucose 100 mg/dl (70-99) H 07/14/23 07:02
Calcium 9.5 mg/dl (8.4-10.2) 07/14/23 07:02
Albumin 4.5 g/dl (3.5-5.0) 07/09/23 22:44
Physical Exam
-
Vital Signs:
Vital Signs
Temp Pulse Resp BP Pulse Ox
97.5 F 72 18 150/93 96
07/14/23 07:00 07/14/23 07:00 07/14/23 07:00 07/14/23 07:00 07/14/23 07:00
Cardiovascular:: Regular rate and rhythm
Respiratory:: Bilateral: CTA
Lung Excursion:: Normal
Abdomen:: Nontender and Soft
Bowel Sounds:: Normal
Extremity Edema:: None: Bilateral:
[2023-07-14 12:06] LABS: Glucose - Point of Care 118 mg/dl (70-99)
[2023-07-14] MEDS: HEPARIN 25000 UNITS/250 ML IV (14:23)
[2023-07-14 15:13] LABS: APTT 176.7 Sec (23.4-35.0)
--- NOTE | 2023-07-14 15:38 | CM ---
Patient for surgery tomorrow. Patient seen at bedside, patient with limited kinyarwanda, smiling and no family present at this time. CM will continue to follow for discharge planning needs.
Plan; pending medical treatment plan
[2023-07-14 16:52] LABS: Glucose - Point of Care 126 mg/dl (70-99)
[2023-07-14 17:00] LABS: APTT 158.6 Sec (23.4-35.0)
[2023-07-14] MEDS: GLUCOPHAGE 500 MG PO (17:07)
[2023-07-14] MEDS: LIPITOR 80 MG PO (17:07)
[2023-07-14 21:45] LABS: Glucose - Point of Care 124 mg/dl (70-99)
[2023-07-15] VITALS (13 sets, daily range): BP systolic 72–159; BP diastolic 41–86; BMI 25.6
[2023-07-15 00:52] LABS: APTT 105.6 Sec (23.4-35.0)
--- NOTE | 2023-07-15 03:01 | PTCARENOTE ---
Hep gett stopped at 0300 as per order.
[2023-07-15 06:52] LABS: Glucose - Point of Care 115 mg/dl (70-99)
[2023-07-15] MEDS: NOVOLOG FLEXPEN-LOW RESISTANCE SC ×2 (07:00→17:01)
[2023-07-15 07:03] LABS: Hematocrit 42.3 % (39.0-52.0); Hemoglobin 14.4 g/dL (13.0-18.0); Mean Corpuscular Hgb 29.4 pg (27.0-31.0); Mean Corpuscular Volume 86.5 fL (80.0-94.0); Platelet Count 238 10^3/uL (130-400); Red Blood Cell Count 4.89 10^6/uL (4.70-6.10); Red Cell Dist. Width 13.2 % (11.5-14.5)
[2023-07-15 07:25] LABS: Blood Urea Nitrogen 39 mg/dl (9-20); Calcium 9.7 mg/dl (8.4-10.2); Carbon Dioxide 24 mmol/L (22-30); Chloride 103 mmol/L (98-107); Estimated Creatinine Clearance 34 ml/min; Glucose 104 mg/dl (70-99); Sodium 138 mmol/L (135-145); eGFR 36.58
[2023-07-15] MEDS: PERIDEX 0.12% ORAL RINSE 15 ML PO (07:47)
[2023-07-15] MEDS: BACTROBAN 2% OINTMENT 1 APPLIC NASAL (07:47)
[2023-07-15] MEDS: LOW STRENGTH ASPIRIN 81 MG PO (07:55)
[2023-07-15] MEDS: ROCALTROL 0.25 MCG PO (07:55)
[2023-07-15] MEDS: ULORIC 40 MG PO (07:55)
[2023-07-15] MEDS: NORVASC 5 MG PO (07:55)
[2023-07-15] MEDS: LYRICA PO (07:56)
[2023-07-15] MEDS: LIDOCAINE 4% PATCH TOPICAL (07:56)
--- NOTE | 2023-07-15 08:17 | W.SUR.PREOP ---
Pre-Operative Surgical Note
-
I have examined this patient prior to the performance of the scheduled procedure.
The patient's condition is unchanged from the time of the current History and
Physical and the patient is able to undergo the scheduled procedure.
--- NOTE | 2023-07-15 08:36 | W.PN.HOSP.TC ---
Today's Communication/Plan
-
for CEA today
Assessment / Plan
Assessment / Plan
Assessment:
RUE weakness
- MRI brain: MANY ACUTE ISCHEMIC INFARCTS in the LEFT CEREBRAL HEMISPHERE MIDDLE CEREBRAL ARTERY TERRITORY involving cortical roper matter in the left frontal lobe, left parietal lobe, and superior left occipital lobe (including a 2.5 cm acute
ischemic infarct in the left frontal lobe precentral gyrus). Mild to moderate white matter leukoaraiosis in the frontal and parietal lobes. Mild paranasal sinus mucosal disease.
- MRA: Short segment of nonocclusive dissection and mural thrombus involving the proximal left internal carotid artery extending over approximately 1.9 cm in length. No additional focal hemodynamically significant stenosis, aneurysm or occlusion.
- Vascular US: Left: Soft plaque is identified in the proximal and mid internal carotid artery. Carotid velocity profile is consistent with 50 to 69% stenosis. Vertebral artery flow is antegrade. Right: Soft plaque is identified in the proximal to
mid internal carotid artery. Carotid velocity measurements are consistent with less than 50% stenosis. Vertebral artery flow is antegrade.
- CT-A: Short segment dissection of the proximal left internal carotid artery as seen on prior MR angiogram. Associated less than 50% narrowing of the internal carotid artery. There is also approximately 50% narrowing of the origin of the left
internal carotid artery secondary to noncalcified plaque.
- Echo: Normal left ventricular size, wall thickness and systolic function. EF 62%. No significant valvular disease. Interatrial septum is intact with no evidence of shunting by 2D, color Doppler, and agitated saline bubble study.
- continue Aspirin
- continue statin; LDL is 168
- for CEA today
- neuro checks
- therapy evals recommend acute rehab, PMR consulted
- Neurology following
- Cardiology following; initially planned for ILR but patient declined. EP to review strips; short paroxysms of A.Fib were identified. Eventually Eliquis transition post-op
Neck pain
- MRI C spine: MODERATE-SIZED MULTILEVEL DISC HERNIATIONS throughout the cervical spine. MODERATE SPINAL CORD COMPRESSION and CENTRAL CANAL STENOSIS at C3/C4, C4/C5, and C5/C6. Mild spinal cord compression and central canal stenosis at C2/C3.
Moderate discogenic degenerative disease at C5/C6. Severe right neural foraminal narrowing at C5/C6. Large 2.4 cm left lobe thyroid nodule.
- Lyrica 25mg BID for pain relief
- discussed results with Neurosurgery; they will evaluate patient outpatient as cannot consider surgery currently with acute CVA.
New diagnosed type 2 DM
- dietary eval and asthma educator
- continue SSI
- continue Metformin renally dosed
Essential Hypertension
- continue amlodipine
- hold ARB with ANNA
ANNA on CKD, stage 3B
- Cr baseline 1.9
- monitor BMP; no baseline labs available
- bladder scan/SC protocol
- FENA pre-renal
- hold ARB; resume in 24 hours if cr stable
- Nephrology following
DVT ppx: SCDs
Code: Full
Anticipated Discharge: > 48 hours
Subjective/Interval History
-
Date of Service: July 15, 2023
no acute overnight events
for CEA today
Objective Data
-
Labs:
Laboratory Results
07/15/23 07/15/23
00:31 06:33
WBC 7.0
Hgb 14.4
Hct 42.3
Plt Count 238
APTT 105.6 H
Sodium 138
Potassium 5.0
Chloride 103
Carbon Dioxide 24
BUN 39 H
Creatinine 2.0 H
Glucose 104 H
Calcium 9.7
Vital Signs:
Vital Signs
Temp Pulse Resp BP Pulse Ox
98.2 F 97 16 159/86 97
07/15/23 07:30 07/15/23 07:30 07/15/23 07:30 07/15/23 07:30 07/15/23 07:30
I&O
07/14/23 07/15/23 07/16/23
06:59 06:59 06:59
Intake Total 3091 / 3091 1611 / 1611
Balance 309 / 3091 1611 / 1611
Physical Exam
-
General: No Apparent Distress
HEENT: Normocephalic and Atraumatic
Respiratory: Negative Wheezes or Rales
Cardiac: Regular Rhythm and S1/S2
GI: Soft and Nontender
Genito-urinary: No Costovertebral Tender
Musculoskeletal: No Edema
Neuro: AO x 3
Hematologic / Lymphatic: No Lymphadenopathy
Psych: Calm
Data Reviewed
-
Total Time Spent with Patient (in minutes): 42
Labs: Labs Reviewed by me
--- NOTE | 2023-07-15 10:09 | PTCARENOTE ---
0800 Received pt this am AAOx3. Pt NPO for OR. Report called and patient transported to OR.
--- NOTE | 2023-07-15 10:47 | OR.RPT ---
Operative Report
Operative Report
PROCEDURE DATE: 07/15/2023
Preoperative diagnosis: Symptomatic left carotid artery stenosis.
Postoperative diagnosis: Same
Procedure: Left carotid endarterectomy with bovine pericardial patch angioplasty and intraoperative EEG/SSEP monitoring.
Surgeon: Juan
Beer Brewer: None
Complications: None
Anesthesia: General
EBL: 10 cc
Indications for procedure:
Symptomatic left carotid stenosis with irregular appearing plaque with possible plaque projection into the lumen distally, likely source of multiple infarcts. Risk/benefits/alternatives of revascularization all fully discussed. Patient understood
all wish to proceed.
Description of procedure:
Patient was identified brought to the operating room placed on the table in supine position. After the adequate administration of anesthesia and perioperative antibiotics he was prepped and draped in the standard surgical fashion. A standard
preoperative timeout was undertaken and everybody was in agreement the plan. A standard longitudinal incision was made in the left neck that was carried through the skin subcutaneous tissue. Using the electrocautery dissection was carried through
the platysma muscle layer and then alongside the anterior medial border of the sternocleidomastoid muscle. Then using a combination of sharp dissection with the Metzenbaum scissors and electrocautery I dissected along the anterior medial border of
the internal jugular vein. The common facial vein branch was ligated between silk ties and then divided. An additional small vein branch was also ligated and divided between silk ties. I then deepened my retraction. The common carotid artery was
identified and carefully dissected away from the surrounding structures take great care to avoid any injury to the structures. A vessel loop was passed around it which was double looped, but not yet tightened. Note, I minimize mobilization of the
entire carotid in my circumferential dissection given his symptomatic status. Note the vagus nerve was visualized and protected from harm's way. I then continued my dissection up the common carotid artery to the bulb staying only on the anterior
surface of the carotid artery. Then I carried the dissection up to the internal carotid artery and then to the distal internal carotid artery. I identified where it was soft and carefully circumferentially dissected the internal carotid artery
with minimal mobilization and passed a vessel loop around it. I made sure to dissect at least 2 cm distal to the bifurcation based on the distal plaque projection into the lumen on the CT scan noted. Note the hypoglossal nerve was generally
visualized and preserved from harm's way. The patient was given an appropriate dose of heparin 7000 units. Next I dissected the anterior surface of the external carotid artery and superior thyroid branches. These were then carefully
circumferentially dissected with minimal mobilization and vessel loops passed around these which were double looped but not yet tightened. After 3 minutes of heparin circulation time and confirmation of optimization of the blood pressure with my
anesthesiology colleagues, I clamped the distal internal carotid artery where it was soft. There was no immediate EEG or SSEP changes. After 1 minute of test clamp time there was no changes noted. Therefore at this point, the vessel loops on the
external carotid artery and superior thyroid branches were tightened and the common carotid artery was clamped where it was soft proximally. An arteriotomy was made on the common carotid artery with an 11 blade and extended using a Mg scissor.
I then extended the arteriotomy onto the mid to distal internal carotid artery. There was significant subintimal plaque noted on the posterior/posterior lateral aspect of the bulb/proximal internal carotid artery. It was not hardened, but rather
soft and possibly hemorrhagic deep to the intima, but the intima was maintained/intact. However, at the very end point of the plaque, there was an irregular almost thrombotic type appearing end of the plaque (somewhat sessile protrusion). This
correlated to the region seen on CT scan. A [place] was then used to endarterectomized the plaque. An endarterectomy plane was created, and the plaque was then endarterectomized. Distally I feathered the plaque out to a nice clean endpoint in the
distal internal carotid artery. Next I endarterectomized the intima back to normal intima in the common carotid artery, and the intima was cut flush there. I then grasped the plaque and everted plaque out of the origin of the external carotid
artery. The plaque was then sent off for specimen. The origin of the external carotid artery was carefully visualized and any fine debris were removed with fine forceps. Proximal and distal endpoints were then carefully inspected. I did extend
my distal arteriotomy and move my clamp slightly cephalad on the internal carotid artery to allow better removal of loose intima at the endpoint. Now I achieved a nice clean endpoint distally. Any fine debris was removed with fine forceps, and the
intima was noted to be nicely adherent proximally and distally. Next any fine debris were removed throughout the endarterectomy bed with fine forceps. 2 posterior interrupted 7-0 Prolene tacking sutures were placed to tack the distal endpoint. I
then flushed heparinized saline. I was very satisfied. Then, I used a bovine pericardial patch to sew a patch angioplasty with a running 6-0 Prolene suture. Prior to completing and tying down my suture line, I backbled sequentially each branch
and reclamped each branch prior to unclamping the next branch. I then irrigated with heparinized saline. Then I completed and tied down my suture line. I then restored flow in the common carotid and external carotid arteries. Finally, I released
flow in the internal carotid artery. There was excellent pulsatile flow in all 3 vessels. There was an excellent Doppler signal in the internal carotid artery distal to the patch with a good normal low resistance Doppler signal. There was a good
Doppler signal in the external carotid artery as well. A single 6-0 Prolene [id number] sutures was placed along a single bleeding point along the suture line. Protamine was given to reverse the heparin. Hemostasis was completely achieved. I
then irrigated and confirmed full hemostasis. I then closed in layers with 2-0 Vicryl layer to reapproximate the sternocleidomastoid muscle, followed by 3-0 Vicryl platysma muscle running layer, followed by 4 Monocryl subcuticular stitch.
Dermabond was applied. The patient tolerated procedure well. He awoke moving all extremities to command with tongue in the midline.
--- NOTE | 2023-07-15 10:53 | CON.INTV ---
Consultation
Consultation Request
Date/Time Consultation Requested: 07/15/2023 - 101
Date/Time Consultation Performed: 07/15/2023 - 1049
Requesting Provider: Dr. Martinez
Performing Provider: Dr. Rodriguez
Reason for Consultation: s/p L-CEA
Medical History
-
Chief Complaint: Right-sided weakness
History of Present Illness:
63-year-old Etta speaking male with former tobacco history and CKD/CAD who presents with right-sided weakness for about 1 day. Patient was feeling off 1 day prior to arrival and then awoken suddenly at 9 AM on the day of admission with right upper
and lower weakness. Initial CT head in the ER showed no acute intracranial process. He was admitted to the hospitalist service, and neurology was consulted who recommended MRI of the C-spine + brain. Brain MRI showed several acute ischemic
infarcts in the left cerebral hemisphere, MCA territory involving the left frontal lobe, left parietal lobe and superior left occipital lobe. Cervical spine MRI showed moderate spinal cord compression with central canal stenosis at C3/4, C4/5, and
C5/6, with moderate-sized multilevel disc herniations throughout the cervical spine. Antiplatelet therapy was started with aspirin and Plavix. Head/neck MRA obtained showing a short segment nonocclusive dissection with mural thrombus involving the
proximal left ICA. Vascular surgery was consulted and today (07/15/2023 he underwent left carotid endarterectomy with bovine pericardial patch angioplasty with intraoperative EEG monitoring. EBL was minimal at 10 cc, with no immediate surgical
complications. He was transferred to the ICU postoperatively and now critical care services consulted for additional management/recommendations.
When I saw the patient this morning he was in bed in no acute distress and had just come from surgery. Ice pack was on the patient's left neck. He was on Bobby-Synephrine at 80mcg/min, saturating 100% on simple mask, BP 104/68 and heart rate 63. He
was resting comfortably in bed.
PMHx: Hypertension, CKD, gout, former tobacco use history
PSHx: None
Past Medical History
Past Medical History: Other (Above as per HPI)
Past Surgical History: Other (Above as per HPI)
Social History
Tobacco: Former Smoker (Quit many years ago)
Alcohol: None
Drug: None
Personal:
Living: With Family
Family History
Family History: Reviewed & Not Pertinent
Allergies / Home Medications
Allergies
Allergy/AdvReac Type Severity Reaction Status Date / Time
No Known Allergies Allergy Verified 07/09/23 23:10
Home Medications
�Medication �Instructions �Recorded �Confirmed �Last Taken �Type
calcitriol 0.25 mcg capsule 0.25 mcg PO DAILY Kidney Disease 07/09/23 07/09/23 Unknown History
calcium carbonate 500 mg-vitamin 1 tab PO DAILY Supplement 07/09/23 07/09/23 Unknown History
D3 5 mcg (200 unit) tablet
(Calcium 500 + D)
febuxostat 40 mg tablet 40 mg PO DAILY Gout 07/09/23 07/09/23 Unknown History
telmisartan 40 mg-amlodipine 5 mg 1 tab PO DAILY Blood Pressure 07/09/23 07/09/23 07/09/23 History
tablet
Review of Systems
-
History Source: Patient
All other systems: Negative unless noted
Vitals / Labs / Diagnostic Testing
Vital Signs
Temp Pulse Resp BP Pulse Ox
98.2 F 71 14 93/53 100
07/15/23 11:02 07/15/23 11:45 07/15/23 11:45 07/15/23 11:45 07/15/23 11:45
Lab Data
07/15/23 11:03
07/15/23 11:03
Laboratory Results
07/14/23 07/14/23 07/15/23
14:32 16:05 00:31
APTT 176.7 H* 158.6 H* 105.6 H
Diagnostic Testing:
Physical Exam
-
HEENT: Normocephalic and Anicteric
Cardiovascular: S1/S2 and Peripheral Edema (negative)
Respiratory: Wheeze (negative), Rales (negative), Rhonchi (negative) and Non-Labored Respirations
GI: Soft, Non Distended and Non Tender
Neurology: Other (Sleeping in NAD, easily arousable)
Skin: Warm and Dry
General: Comfortable and Chills (n)
Assessment
-
Assessment: 63-year-old Etta speaking male with former tobacco history and CKD/CAD who presents with right-sided weakness for about 1 day. Patient was feeling off 1 day prior to arrival and then awoken suddenly at 9 AM on the day of admission with
right upper and lower weakness. Initial CT head in the ER showed no acute intracranial process. He was admitted to the hospitalist service, and neurology was consulted who recommended MRI of the C-spine + brain. Brain MRI showed several acute
ischemic infarcts in the left cerebral hemisphere, MCA territory involving the left frontal lobe, left parietal lobe and superior left occipital lobe. Cervical spine MRI showed moderate spinal cord compression with central canal stenosis at C3/4,
C4/5, and C5/6, with moderate-sized multilevel disc herniations throughout the cervical spine. Antiplatelet therapy was started with aspirin and Plavix. Head/neck MRA obtained showing a short segment nonocclusive dissection with mural thrombus
involving the proximal left ICA. Vascular surgery was consulted and today (07/15/2023 he underwent left carotid endarterectomy with bovine pericardial patch angioplasty with intraoperative EEG monitoring. EBL was minimal at 10 cc, with no immediate
surgical complications. He was transferred to the ICU postoperatively and now critical care services consulted for additional management/recommendations.
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
Impression:
#Symptomatic left carotid artery stenosis s/p left carotid endarterectomy with bovine pericardial patch angioplasty � POD #0
#Left internal carotid very short segment dissection + mural thrombus s/p left CEA as stated above
#Right-sided weakness with multiple left cerebral acute ischemic infarcts (seen on brain MRI from 07/10/2023)
#Former tobacco use history (remote Hx)
#CKD (baseline likely approx 1.8)
#Left thyroid nodule (2.4cm)
#Moderate-sized multilevel disc herniations throughout the cervical spine with moderate spinal cord compression + central canal stenosis from C3-C6
Plan:
Postoperative surgical intensive care unit monitoring
Supplemental oxygen as needed
Incentive spirometry
Aspiration precautions
Maintain SpO2 >90-94%
Neuro and vascular checks per protocol
Maintain normotension given recent acute ischemic CVA; MAP 70-100 given L-CEA status
Replete electrolytes with K>4, Mg>2
Maintain euglycemia with goal BG 140-180
Vascular surgery following-correspondence and operative notes reviewed
Ultimately needs outpatient thyroid US given his large left-sided thyroid nodule measurng 2.4cm on c-spine MRI from 07/10/2023
prn nebulized bronchodilators
DVT prophylaxis
Early nutrition
Early mobilization
Critical care statement: A total of 41 minutes of critical care time was provided for this patient today. This includes management of unstable vital signs, evaluation of the patient at bedside, reviewing the patient's pertinent medical records
including radiographs, microbiology, laboratory evaluations, and discussion with primary team, consultants, pharmacy, nutrition, physical therapy, case management, charge nurse, critical care nursing, and respiratory therapy.
Data:
Head/Neck CTA 07-13-2023:
1. Short segment dissection of the proximal left internal carotid artery as seen on prior MR angiogram. Associated less than 50% narrowing of the internal carotid artery. There is also approximately 50% narrowing of the origin of the left internal
carotid artery secondary to noncalcified plaque.
2. Recent left frontal and left occipitoparietal infarcts as seen on prior MRI of the brain. Additional smaller infarcts seen on the prior MRI are indistinct at noncontrast CT.
3. Negative for major branch vessel occlusion, severe stenoses, or aneurysm formation.
4. Incidental low-attenuation nodule left lobe of the thyroid gland.
Brain MRI 07-10-2023:
1. MANY ACUTE ISCHEMIC INFARCTS in the LEFT CEREBRAL HEMISPHERE MIDDLE CEREBRAL ARTERY TERRITORY involving cortical roper matter in the left frontal lobe, left parietal lobe, and superior left occipital lobe (including a 2.5 cm acute ischemic
infarct in the left frontal lobe precentral gyrus).
2. Mild to moderate white matter leukoaraiosis in the frontal and parietal lobes.
3. Mild paranasal sinus mucosal disease.
4. Multilevel disc herniations in the cervical spine causing multilevel mild to moderate spinal cord compression and central canal stenosis.
[2023-07-15 11:01] LABS: Glucose - Point of Care 179 mg/dl (70-99)
[2023-07-15 11:15] LABS: Hematocrit 36.5 % (39.0-52.0); Hemoglobin 12.4 g/dL (13.0-18.0); Mean Corpuscular Hgb 29.7 pg (27.0-31.0); Mean Corpuscular Volume 87.3 fL (80.0-94.0); Mean Platelet Volume 10.3 fL (7.4-10.4); Platelet Count 203 10^3/uL (130-400); Red Blood Cell Count 4.18 10^6/uL (4.70-6.10); Red Cell Dist. Width 13.3 % (11.5-14.5)
--- NOTE | 2023-07-15 11:19 | W.PN.NEURO.1 ---
Today's Communication / Plan
-
-Continue aspirin 81 mg daily, continue statin
-Add back plavix 75 mg daily today, end date of Plavix is 07/28
-Is off anticoagulation/heparin infusion
-Goal normotension would aim for maximum SBP less than 160
-Neuro checks and NIH
-Cardiac telemetry
-Post op monitoring in ICU
-Not requiring further CT head unless there are clinical changes in neurologic status
Will follow
Neuro Assessment/Plan
Assessment
63-year-old male with a past medical history of obesity hyperlipidemia CKD presented to hospital with sudden onset right-sided weakness also did have some neck pain
MRI brain demonstrates acute stroke in the left MCA territory is embolic appearing
MRA of the head does show a lesion within the distal common carotid and proximal internal carotid artery, mural thrombus is seen along with narrowing, no clear dissection flap, narrowing and tapering is seen
Carotid ultrasound supports 50-69% stenosis and soft plaque on left internal carotid artery
CTA angiogram on my read appears soft plaque and mural thrombus rather than dissection flap in the proximal left ICA
Patient with no significant cause for a carotid artery dissection no significant head trauma or inciting events for dissection, while carotid dissection is possible it seems a strong possibility that this is more of an atherosclerotic plaque with
associated mural thrombus and stenosis
Regardless the left carotid lesion is definitely the cause of his ischemic stroke
Agree with plans for carotid revascularization
Patient placed on anticoagulation prior to CEA with heparin infusion given concern for mural thrombus to produce embolization
Subjective/Objective
Subjective Data
Date of Service: July 15, 2023
Seen post operatively in ICU, drowsy but obeying commands and talking, had CEA earlier
Objective Data
Vital Signs
Temp Pulse Resp BP Pulse Ox
98.2 F 81 24 90/60 98
07/15/23 11:02 07/15/23 11:00 07/15/23 11:00 07/15/23 11:00 07/15/23 11:00
Lab Results
07/15/23 11:03
PT 13.0 Sec (11.4-14.6) 07/09/23 22:44
INR 1.00 07/09/23 22:44
APTT 105.6 Sec (23.4-35.0) H 07/15/23 00:31
Sodium 138 mmol/L (135-145) 07/15/23 06:33
Potassium 5.0 mmol/L (3.5-5.1) 07/15/23 06:33
BUN 39 mg/dl (9-20) H 07/15/23 06:33
Glucose 104 mg/dl (70-99) H 07/15/23 06:33
Calcium 9.7 mg/dl (8.4-10.2) 07/15/23 06:33
LDL Cholesterol, Calc 168 mg/dl 07/10/23 05:24
Patient Allergies
No Known Allergies Allergy (Verified 07/09/23 23:10)
Review of Systems
-
Unable to obtain full review of systems at this time due to: Other (Drowsy)
Physical Exam
-
General: No Apparent Distress
HEENT: Other (Left CEA incision covered)
Respiratory: No Dyspnea; Negative Wheezes
Cardiac: No Murmur
GI: Soft and Non-tender
Skin: Warm and Dry; Negative Rash
Extended Neurological Exam
Attention Span & Concentration: Other (Drowsy, eyes open to voice and obeys commands consistently)
Tremor: Hand Tremor Absent
Speech: Dysarthric; Negative Expressive Aphasia or Receptive Aphasia
Cranial Nerve II: Left Eye: Pupillary Reactivity Unremarkable
Cranial Nerve II: Right Eye: Pupillary Reactivity Unremarkable
Cranial Nerves III, IV, : Extraocular Movement: Extraocular Movement Full in all Directions
Muscle Strength, Overall: Full Throughout and Other (5/5 arm flexion and hip flexion bilaterally)
[2023-07-15] MEDS: DILAUDID 0.25 MG IV (11:20)
[2023-07-15] MEDS: NEO-SYNEPHRINE 250 IV (11:25)
[2023-07-15] MEDS: LR 1000 IV ×2 (11:26→20:07)
[2023-07-15] MEDS: ANCEF 10 IV (11:26)
[2023-07-15] MEDS: NOVOLOG FLEXPEN-LOW RESISTANCE 1 UNITS SC (11:27)
[2023-07-15 11:30] LABS: Blood Urea Nitrogen 36 mg/dl (9-20); Carbon Dioxide 23 mmol/L (22-30); Chloride 105 mmol/L (98-107); Estimated Creatinine Clearance 32 ml/min; Glucose 167 mg/dl (70-99); Potassium 4.6 mmol/L (3.5-5.1); Sodium 135 mmol/L (135-145)
--- NOTE | 2023-07-15 12:07 | PTCARENOTE ---
Pt received from the OR and recovered in ICU room 3371. Initially RASS -2 but pt is quick to awaken and follow commands. PERRLA 2mm and sluggish. NIHSS scored a 0. NSR/SB with HR 50-80. R radial A line intact correlating well with NIBP on the R
upper arm. + pulses, trace edema. Phenylephrine started to maintain SBP> 100. 100% O2 sat on 10L simple mask. Breath sounds clear throughout. Bladder scanned for 206mls, urinal at bedside. Report given to MARSHMALLOW MACHINE WORKER.
[2023-07-15] MEDS: NSS 500 IV (12:24)
--- NOTE | 2023-07-15 12:38 | PTCARENOTE ---
Addendum entered by Rita Ware RN 07/15/23 13:39:
attempted to utilize video engineer fishing vessel, no gang worker was available
Original Note:
report received, assessments, ryann gtt per work list. school transportation supervisor updated at bedside. patient drowsy but arouses. oriented conversation. refusing any po at this time. arterial line with good blood return and cuff correlation. abdomen soft. denies
urge to urinate. call cruz in hand
--- NOTE | 2023-07-15 12:45 | W.PN.NEPH.PH ---
Today's Communication / Plan
-
continue IVF
Assessment/Plan
-
Assessment:
RUE weakness -- found to have many acute left ischemic infarcts
T2DM
HTN
CKD 3B (bl Cr 1.9)
left carotid artery dissection
Plan:
follow BMP
continue IVF until po established
keep MAP > 65, wean pressors as allowed
for diet
follow UOP
critical care time 31 minutes
-
-
Date of Service: July 15, 2023
CC / HPI / ROS
-
Chief Complaint:
CKD3/ANNA
History of Present Illness:
Cr up at 2.1
hypotense on Bobby gtt
s/p left CEA
critically ill in ICU
Review of Systems:
no CP/SOB
throat pain
Labs
-
Labs:
WBC 10.0 10^3/uL (4.8-10.8) 07/15/23 11:03
RBC 4.18 10^6/uL (4.70-6.10) L 07/15/23 11:03
Hgb 12.4 g/dL (13.0-18.0) L 07/15/23 11:03
Hct 36.5 % (39.0-52.0) L 07/15/23 11:03
Plt Count 203 10^3/uL (130-400) 07/15/23 11:03
Sodium 135 mmol/L (135-145) 07/15/23 11:03
Potassium 4.6 mmol/L (3.5-5.1) 07/15/23 11:03
Chloride 105 mmol/L (98-107) 07/15/23 11:03
Carbon Dioxide 23 mmol/L (22-30) 07/15/23 11:03
BUN 36 mg/dl (9-20) H 07/15/23 11:03
Creatinine 2.1 mg/dL (0.7-1.3) H 07/15/23 11:03
eGFR 34.50 07/15/23 11:03
Glucose 167 mg/dl (70-99) H 07/15/23 11:03
Calcium 8.0 mg/dl (8.4-10.2) L D 07/15/23 11:03
Albumin 4.5 g/dl (3.5-5.0) 07/09/23 22:44
Physical Exam
-
Vital Signs:
Vital Signs
Temp Pulse Resp BP Pulse Ox
98.2 F 71 14 93/53 100
07/15/23 11:02 07/15/23 11:45 07/15/23 11:45 07/15/23 11:45 07/15/23 11:45
Cardiovascular:: Regular rate and rhythm
Respiratory:: Bilateral: Coarse
Lung Excursion:: Normal
Abdomen:: Nontender and Soft
Bowel Sounds:: Normal
Extremity Edema:: None: Bilateral:
[2023-07-15] MEDS: ROXICODONE 5 MG PO ×2 (13:59→20:06)
[2023-07-15] MEDS: PLAVIX 75 MG PO (15:05)
--- NOTE | 2023-07-15 15:14 | PTCARENOTE ---
patient reassessed, able to review plan of care with assistance of video logging specialist #[id number]. ryann wean per work list, no changes in neuro assessment. call cruz in reach
[2023-07-15] MEDS: LIPITOR 80 MG PO (17:00)
[2023-07-15] MEDS: LOVENOX 30 MG SC (17:00)
[2023-07-15] MEDS: GLUCOPHAGE 500 MG PO (17:00)
[2023-07-15 17:06] LABS: Glucose - Point of Care 144 mg/dl (70-99)
--- NOTE | 2023-07-15 17:18 | PTCARENOTE ---
bladder scan for 530, after which patient voided 500 ml bob yellow urine in urinal
[2023-07-15] MEDS: LYRICA 25 MG PO (20:07)
--- NOTE | 2023-07-15 20:30 | PTCARENOTE ---
rec'd patient. assessment as documented. pt speaks kyrgyz, understands minimal vietnamese. SB/SR on monitor. ryann gtt infusing per protocol - see flowsheet. right radial arterial line leveled and zeroed. urinal at bedside. c/o pain in L neck, PRN rafa
given. left CEA site with glue, no swelling/bruising noted. call cruz within reach, care ongoing.
[2023-07-15 21:23] LABS: Glucose - Point of Care 137 mg/dl (70-99)
[2023-07-16] VITALS (13 sets, daily range): BP systolic 96–129; BP diastolic 47–69; PULSE 70–77; BMI 25.8
--- NOTE | 2023-07-16 00:06 | PTCARENOTE ---
systems reviewed. pt awake and on facetime with family members. denies pain at this time. ryann gtt titrated per protocol - see worklist. call cruz within reach, care ongoing.
[2023-07-16] MEDS: NEO-SYNEPHRINE 250 IV (03:23)
[2023-07-16] MEDS: ROXICODONE 5 MG PO (03:35)
[2023-07-16 03:41] LABS: Hematocrit 33.3 % (39.0-52.0); Hemoglobin 11.7 g/dL (13.0-18.0); Mean Corp Hgb Conc. 35.1 g/dL (33.0-37.0); Mean Corpuscular Hgb 29.5 pg (27.0-31.0); Mean Corpuscular Volume 83.9 fL (80.0-94.0); Mean Platelet Volume 10.1 fL (7.4-10.4); Platelet Count 224 10^3/uL (130-400); Red Blood Cell Count 3.97 10^6/uL (4.70-6.10); Red Cell Dist. Width 13.2 % (11.5-14.5); White Blood Cell Count 11.2 10^3/uL (4.8-10.8)
[2023-07-16 03:52] LABS: INR 1.14; PT 14.5 Sec (11.4-14.6)
[2023-07-16 03:53] LABS: APTT 33.9 Sec (23.4-35.0)
[2023-07-16 04:17] LABS: Blood Urea Nitrogen 35 mg/dl (9-20); Calcium 8.3 mg/dl (8.4-10.2); Carbon Dioxide 22 mmol/L (22-30); Chloride 108 mmol/L (98-107); Estimated Creatinine Clearance 35 ml/min; Glucose 130 mg/dl (70-99); Sodium 137 mmol/L (135-145); eGFR 38.91
--- NOTE | 2023-07-16 04:27 | PTCARENOTE ---
systems reviewed. c/o pain in L neck, PRN rafa given. AM labs sent. ryann gtt continues. care ongoing.
--- NOTE | 2023-07-16 07:25 | W.PN.VS ---
Today's Communication / Plan
-
as above
Assessment/Plan
-
-Ok to d/c jamal
-oob
-regular diet
-ok to d/c home later if bp ok
Discussed with pt via per diem interpreter # [id number]
Subjective Data
-
Date of Service: July 16, 2023
No acute events. Says he feels tired but otherwise no complaints. No new neurologic symptoms
Objective Data
-
Vital Signs
Temp Pulse Resp BP Pulse Ox
98.5 F 52 10 122/64 96
07/16/23 03:50 07/16/23 06:30 07/16/23 06:30 07/16/23 04:00 07/16/23 06:30
Intake and Output
07/15/23 07/16/23 07/17/23
06:59 06:59 06:59
Intake Total 1611 / 1611 3931 / 3931
Output Total 1999 / 1999
Balance 1611 / 1611 193 / 193
Intake:
Oral fluids 780 / 780 1080 / 1080
IV fluids (Total) 750 / 750 2851 / 2851
Lr 1,000 ml @ 80 mls/hr IV . 1600 / 1600
[id number] PILY Rx#:[id number]
NSS Bolus 1000 / 1000
Bobby 251 / 251
IV piggybacks 81 / 81
Output:
Urine, Voided 1999
Other:
Number of approximated MODERATE 1
amounts of urine
Lab Results
07/16/23 03:32
07/16/23 03:32
Calcium 8.3 mg/dl (8.4-10.2) L 07/16/23 03:32
Magnesium 2.1 mg/dl (1.6-2.3) 07/10/23 05:24
Total Bilirubin 0.5 mg/dl (0.2-1.3) 07/09/23 22:44
AST 27 U/L (17-59) 07/09/23 22:44
ALT 22 U/L (0-50) 07/09/23 22:44
Alkaline Phosphatase 108 U/L (38-126) 07/09/23 22:44
Total Protein 8.2 g/dl (6.3-8.2) 07/09/23:44
Albumin 4.5 g/dl (3.5-5.0) 07/09/23 22:44
Physical Exam
-
NAD
L neck incision c/d/i, soft, no hematoma
CN II-XII in tact
strength in tact
[2023-07-16 07:39] LABS: Glucose - Point of Care 121 mg/dl (70-99)
[2023-07-16] MEDS: NOVOLOG FLEXPEN-LOW RESISTANCE SC ×3 (07:41→17:35)
--- NOTE | 2023-07-16 08:01 | W.PN.NEURO.1 ---
Today's Communication / Plan
-
-Continue aspirin, can stop clopidogrel given I don't feel he needs triple therapy
-Add Eliquis today given atrial fibrillation, stop Lovenox for DVT prophylaxis
-Goal normotension
-Continue NIH and neurologic checks while in hospital
-Continue statin
-Neurology follow up 4-6 weeks as outpatient
Will sign off call with questions and concerns reconsult as needed
Neuro Assessment/Plan
Assessment
63-year-old male with a past medical history of obesity hyperlipidemia CKD presented to hospital with sudden onset right-sided weakness also did have some neck pain
MRI brain demonstrates acute stroke in the left MCA territory is embolic appearing
MRA of the head does show a lesion within the distal common carotid and proximal internal carotid artery, mural thrombus is seen along with narrowing, no clear dissection flap, narrowing and tapering is seen
Carotid ultrasound supports 50-69% stenosis and soft plaque on left internal carotid artery
CTA angiogram on my read appears soft plaque and mural thrombus rather than dissection flap in the proximal left ICA
Patient with no significant cause for a carotid artery dissection no significant head trauma or inciting events for dissection, while carotid dissection is possible it seems a strong possibility that this is more of an atherosclerotic plaque with
associated mural thrombus and stenosis
Regardless the left carotid lesion is definitely the cause of his ischemic stroke
Agree with plans for carotid revascularization
Patient placed on anticoagulation prior to CEA with heparin infusion given concern for mural thrombus to produce embolization
Atrial fibrillation noted here in hospital and given age, hypertension, stroke and CHADS score would be indicated for chronic anticoagulation. His strokes are all in the right MCA territory which is in fitting with right carotid stenosis as cause
of stroke, I don't feel that afib caused this stroke but anticoagulation is best for future stroke prevention
Subjective/Objective
Subjective Data
Date of Service: July 16, 2023
No acute events, patient feeling okay, no headache, some soreness and pain on left side of neck, right arm weakness is stable and mild
Objective Data
Vital Signs
Temp Pulse Resp BP Pulse Ox
98.2 F 52 10 122/64 96
07/16/23 07:44 07/16/23 06:30 07/16/23 06:30 07/16/23 04:00 07/16/23 06:30
Lab Results
07/16/23 03:32
07/16/23 03:32
PT 14.5 Sec (11.4-14.6) 07/16/23 03:32
INR 1.14 07/16/23 03:32
APTT 33.9 Sec (23.4-35.0) 07/16/23 03:32
Sodium 137 mmol/L (135-145) 07/16/23 03:32
Potassium 5.0 mmol/L (3.5-5.1) 07/16/23 03:32
BUN 35 mg/dl (9-20) H 07/16/23 03:32
Glucose 130 mg/dl (70-99) H 07/16/23 03:32
Calcium 8.3 mg/dl (8.4-10.2) L 07/16/23 03:32
LDL Cholesterol, Calc 168 mg/dl 07/10/23 05:24
Patient Allergies
No Known Allergies Allergy (Verified 07/09/23 23:10)
Review of Systems
-
History Source: Patient
All other systems: Reviewed and negative
Constitutional: No Symptoms
EENT: No Symptoms Reported
Respiratory: No Symptoms
Cardiac: No Symptoms
Abdomen/GI: No Symptoms
Genitourinary: No Symptoms
Musculoskeletal: No Symptoms
Skin: No Symptoms
Neuro: Weakness
Endocrine: No Symptoms
Hematologic / Lymphatic: No Symptoms
Allergy / Immunology: No Symptoms
Physical Exam
-
General: Comfortable
Eyes: No Ptosis
HEENT: Normocephalic
Neck: No Bruits Bilaterally
Respiratory: Clear to Auscultation
Cardiac: Regular Rhythm
GI: Normal Bowel Sounds
Skin: Unremarkable
Extremities: No Clubbing
Psych: Unremarkable
Extended Neurological Exam
Mood & Affect: Mood Unremarkable and Affect Unremarkable
Attention Span & Concentration: Awake, Alert and Interactive
Memory: Unremarkable
Tremor: Hand Tremor Absent
Involuntary Movement: None
Speech: Quality Unremarkable, Quantity Unremarkable and Dysarthric; Negative Expressive Aphasia or Receptive Aphasia
Cranial Nerve II: Left Eye: Pupillary Reactivity Unremarkable and Pupillary Size Unremarkable
Cranial Nerve II: Right Eye: Pupillary Reactivity Unremarkable and Pupillary Size Unremarkable
Cranial Nerves III, IV, : Extraocular Movement: Extraocular Movement Full in all Directions
Muscle Strength, Overall: Full Throughout
Pronator Drift: No Drift in Upper Extremities
Coordination: [id number] Testing Unremarkable
[2023-07-16] MEDS: LIDOCAINE 4% PATCH 1 PATCH TOPICAL (08:08)
[2023-07-16] MEDS: LOW STRENGTH ASPIRIN 81 MG PO (08:09)
[2023-07-16] MEDS: ROCALTROL 0.25 MCG PO (08:09)
[2023-07-16] MEDS: NORVASC 5 MG PO (08:09)
[2023-07-16] MEDS: PLAVIX 75 MG PO (08:09)
[2023-07-16] MEDS: ULORIC 40 MG PO (08:09)
--- NOTE | 2023-07-16 08:19 | PTOTSP ---
Please provide new orders for PT and OT when patient is stable to resume therapy.
--- NOTE | 2023-07-16 08:58 | W.PN.ANS.POP ---
Anesthesia Post Operative
- Anesthesia Post Op Note
Vital Signs Stable-See Nursing Note: Yes
Airway Patent: Yes
Adequate Pain Control: Yes
Change in Mental Status: No
Current Postoperative Nausea & Vomiting: No
Anesthesia Complications: No
General Anesthetic Recall: No
Unplanned Admission: No
Post Op Hydration Adequate: Yes
--- NOTE | 2023-07-16 09:12 | PTCARENOTE ---
Pt received in bed [id number] 2mm and sluggish. NIHSS scored a 0. NSR/SB with HR 50-80. R radial A line intact correlating well with NIBP on the R upper arm. + pulses, trace edema. SEE work list for titration of Phenylephrine started to maintain
SBP> 100. 100% O2 sat on 1L NC. Breath sounds clear throughout. Urinal at bedside, left neck CEA site, closed with surgical adhesive DEBO
--- NOTE | 2023-07-16 09:35 | W.PN.NEPH.PH ---
Today's Communication / Plan
-
follow BMP
Assessment/Plan
-
Assessment:
RUE weakness -- found to have many acute left ischemic infarcts
T2DM
HTN
CKD 3B (bl Cr 1.9)
left carotid artery dissection
Plan:
follow BMP
cap IVF
follow UOP
leave off losartan for now given current BPs, can be restarted as OP
-
-
Date of Service: July 16, 2023
CC / HPI / ROS
-
Chief Complaint:
CKD3/ANNA
History of Present Illness:
Cr down to 1.9
BP stable off pressors
s/p left CEA
eating
Review of Systems:
no CP/SOB
Labs
-
Labs:
WBC 11.2 10^3/uL (4.8-10.8) H 07/16/23 03:32
RBC 3.97 10^6/uL (4.70-6.10) L 07/16/23 03:32
Hgb 11.7 g/dL (13.0-18.0) L 07/16/23 03:32
Hct 33.3 % (39.0-52.0) L 07/16/23 03:32
Plt Count 224 10^3/uL (130-400) 07/16/23 03:32
Sodium 137 mmol/L (135-145) 07/16/23 03:32
Potassium 5.0 mmol/L (3.5-5.1) 07/16/23 03:32
Chloride 108 mmol/L (98-107) H 07/16/23 03:32
Carbon Dioxide 22 mmol/L (22-30) 07/16/23 03:32
BUN 35 mg/dl (9-20) H 07/16/23 03:32
Creatinine 1.9 mg/dL (0.7-1.3) H 07/16/23 03:32
eGFR 38.91 07/16/23 03:32
Glucose 130 mg/dl (70-99) H 07/16/23 03:32
Calcium 8.3 mg/dl (8.4-10.2) L 07/16/23 03:32
Albumin 4.5 g/dl (3.5-5.0) 07/09/23 22:44
Physical Exam
-
Vital Signs:
Vital Signs
Temp Pulse Resp BP Pulse Ox
98.2 F 64 12 112/63 94
07/16/23 07:44 07/16/23 08:30 07/16/23 08:30 07/16/23 08:09 07/16/23 08:30
Cardiovascular:: Regular rate and rhythm
Respiratory:: Bilateral: Coarse
Lung Excursion:: Normal
Abdomen:: Nontender and Soft
Bowel Sounds:: Normal
Extremity Edema:: None: Bilateral:
--- NOTE | 2023-07-16 09:40 | W.PN.INTV ---
Today's Communication / Plan
Recommendations
Breathing comfortably on room air and lung exam is clear to auscultation bilaterally -no need to diurese at this time despite what CXR from yesterday was read as
Incentive spirometer encouraged
Up OOB as tolerated
PT/OT
Pain control
Patient is being downgraded out of ICU to telemetry. Finishing Operator/Pulmonary service will now sign off. Thank you for allowing us to be involved in the care of this patient. Please reconsult if there are any additional questions/concerns, or if
patient's respiratory status deteriorates.
Assessment
-
Assessment: 63-year-old Et[place] speaking male with former tobacco history and CKD/CAD who presents with right-sided weakness for about 1 day. Patient was feeling off 1 day prior to arrival and then awoken suddenly at 9 AM on the day of admission with
right upper and lower weakness. Initial CT head in the ER showed no acute intracranial process. He was admitted to the hospitalist service, and neurology was consulted who recommended MRI of the C-spine + brain. Brain MRI showed several acute
ischemic infarcts in the left cerebral hemisphere, MCA territory involving the left frontal lobe, left parietal lobe and superior left occipital lobe. Cervical spine MRI showed moderate spinal cord compression with central canal stenosis at C3/4,
C4/5, and C5/6, with moderate-sized multilevel disc herniations throughout the cervical spine. Antiplatelet therapy was started with aspirin and Plavix. Head/neck MRA obtained showing a short segment nonocclusive dissection with mural thrombus
involving the proximal left ICA. Vascular surgery was consulted and today (07/15/2023 he underwent left carotid endarterectomy with bovine pericardial patch angioplasty with intraoperative EEG monitoring. EBL was minimal at 10 cc, with no immediate
surgical complications. He was transferred to the ICU postoperatively and now critical care services consulted for additional management/recommendations.
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
Impression:
#Symptomatic left carotid artery stenosis s/p left carotid endarterectomy with bovine pericardial patch angioplasty � POD #1
#Left internal carotid very short segment dissection + mural thrombus s/p left CEA as stated above
#Right-sided weakness with multiple left cerebral acute ischemic infarcts (seen on brain MRI from 07/10/2023)
#Former tobacco use history (remote Hx)
#CKD (baseline likely approx 1.8)
#Left thyroid nodule (2.4cm)
#Moderate-sized multilevel disc herniations throughout the cervical spine with moderate spinal cord compression + central canal stenosis from C3-C6
Plan:
Postoperative surgical intensive care unit monitoring
Supplemental oxygen as needed
Incentive spirometry encouraged
Aspiration precautions
Maintain SpO2 >90-94%
Neuro and vascular checks per protocol
Maintain normotension given recent acute ischemic CVA; MAP 70-100 given L-CEA status
Replete electrolytes with K>4, Mg>2
Maintain euglycemia with goal BG 140-180
Vascular surgery following-correspondence and operative notes reviewed
Ultimately needs outpatient thyroid US given his large left-sided thyroid nodule measuring 2.4cm on c-spine MRI from 07/10/2023
prn nebulized bronchodilators
DVT prophylaxis
Early nutrition
Early mobilization
Patient is being downgraded out of ICU to telemetry. Finishing Operator/Pulmonary service will now sign off. Thank you for allowing us to be involved in the care of this patient. Please reconsult if there are any additional questions/concerns, or if
patient's respiratory status deteriorates.
Total time spent today was 55 minutes for this encounter. Time includes reviewing laboratory test/imaging results, reviewing pertinent medical records, obtaining and reviewing medical history, performing an appropriate exam, ordering medications,
tests and procedures. Time also includes documentation of this encounter, coordinating patient care and communicating with other healthcare professionals. Total time does not include separately billed tests performed on this date of service.
Data:
CXR 07-15-2023: Suspect mild CHF.
Head/Neck CTA 07-13-2023:
1. Short segment dissection of the proximal left internal carotid artery as seen on prior MR angiogram. Associated less than 50% narrowing of the internal carotid artery. There is also approximately 50% narrowing of the origin of the left internal
carotid artery secondary to noncalcified plaque.
2. Recent left frontal and left occipitoparietal infarcts as seen on prior MRI of the brain. Additional smaller infarcts seen on the prior MRI are indistinct at noncontrast CT.
3. Negative for major branch vessel occlusion, severe stenoses, or aneurysm formation.
4. Incidental low-attenuation nodule left lobe of the thyroid gland.
Brain MRI 07-10-2023:
1. MANY ACUTE ISCHEMIC INFARCTS in the LEFT CEREBRAL HEMISPHERE MIDDLE CEREBRAL ARTERY TERRITORY involving cortical roper matter in the left frontal lobe, left parietal lobe, and superior left occipital lobe (including a 2.5 cm acute ischemic
infarct in the left frontal lobe precentral gyrus).
2. Mild to moderate white matter leukoaraiosis in the frontal and parietal lobes.
3. Mild paranasal sinus mucosal disease.
4. Multilevel disc herniations in the cervical spine causing multilevel mild to moderate spinal cord compression and central canal stenosis.
Subjective Dataa
Subjective Data
Date of Service:
Date of Service: July 16, 2023
Chief Complaint: Finishing Operator Follow Up
Subjective:
Seen and evaluated at bedside. Afebrile overnight. Possibly going home today as per vascular surgery. A-line to be DC'd. He feels well. Very weak/deconditioned. BP 96/54, he is breathing comfortably on room air saturating 99%, and heart rate
72.
Review of Systems
General: Other (Negative unless mentioned above)
Objective Data
Data Reviewed
Vital Signs / I&O / Oxygen:
Vital Signs
Temp Pulse Resp BP Pulse Ox
98.0 F 69 16 112/63 96
07/16/23 11:56 07/16/23 11:30 07/16/23 11:30 07/16/23 08:09 07/16/23 11:00
Intake and Output
07/15/23 07/16/23 07/17/23
06:59 06:59 06:59
Intake Total 1610 3931 / 4020 329 / 329
Output Total 1999 650 / 650
Balance 1611 / 1611930 -321 / -321
SaO2 96
Nasal Cannula flow liters per 1
minute
Physical Exam
General: Respiratory Distress (Negative) and Comfortable
HEENT: Normocephalic, Anicteric and Other (Vertical incisional scar seen along the left neck)
Cardiovascular: S1-S2 and Peripheral Edema (Negative)
Respiratory: Wheeze (Negative), Crackles (Negative) and Rhonchi (Negative)
GI: Soft, Non Distended and Non Tender
Neurology: Awake and Alert
Skin: Warm, Dry and Cyanosis (Negative)
Labs/Micro/Reports
Lab Data
07/16/23 03:32
07/16/23 03:32
Laboratory Results
07/16/23
03:32
PT 14.5
INR 1.14
APTT 33.9
--- NOTE | 2023-07-16 09:52 | W.PN.CD ---
Today's Communication / Plan
-
Eliquis and aspirin when OK from surgical perspective
HR in sinus and controlled
Impression / Plan
-
63M with hypertension and new onset DM admitted with subacute ischemic stroke in the left MCA territory.
CVA:
-Many acute ischemic infarcts in left cerebral hemisphere middle cerebral artery territory
-Spoke with neurology Aspirin Eliquis when OK from vascular perspective
-[id number] VASC score of 4 and will be 5 when he turns 64 in 1 year (HTN, CVA, and DM)
-neck MRI 07/11/2023 showed short segment nonocclusive dissection and mural thrombus involving the proximal left internal carotid artery extending over 1.9 cm in length
- left CEA on 07/15/23
-continue IV Heparin
HTN:
-stable on meds, continue.
-monitor.
Dyslipidemia:
-now on high-intensity statin, Lipitor 80mg QHS.
-LDL 168 on 07/10/23.
DM:
-hgba1C 6.8
-new diagnosis, management per primary
Abnormal renal function:
-Hx CKD per chart
-ARB Held, fluids given
-w/u per primary team
Testing:
TTE: Normal left ventricular size, wall thickness and systolic function. LV ejection fraction is 62%.
No significant valvular disease.
Interatrial septum is intact with no evidence of shunting by 2D, color Doppler,
and agitated saline bubble study.
Physical Exam
Vital Signs/Labs
Vital Signs
Temp Pulse Resp BP Pulse Ox
98.2 F 64 12 112/63 94
07/16/23 07:44 07/16/23 08:30 07/16/23 08:30 07/16/23 08:09 07/16/23 08:30
07/15/23 07/16/23 07/17/23
06:59 06:59 06:59
Actual Weight 159 lb 9.835 oz
07/16/23 03:32
07/16/23 03:32
PT 14.5 Sec (11.4-14.6) 07/16/23 03:32
INR 1.14 07/16/23 03:32
APTT 33.9 Sec (23.4-35.0) 07/16/23 03:32
Magnesium 2.1 mg/dl (1.6-2.3) 07/10/23 05:24
Triglycerides 244 mg/dl (10-149) H 07/10/23 05:24
LDL Cholesterol, Calc 168 mg/dl 07/10/23 05:24
VLDL Cholesterol, Calc 48 mg/dl (0-30) H 07/10/23 05:24
HDL Cholesterol 37 mg/dl 07/10/23 05:24
Physical Exam
Constitutional: No acute distress
EENT: Anicteric
Cardiovascular: Rhythm & rate is regular
Respiratory: Respiratory effort normal and Lungs clear to auscul.
GI: Soft
Neuro/Psych: AO x 3
Data Reviewed
-
Date of Service: July 16, 2023
Medical Decision Making: Reviewed Test Results
EKG: Tracing Personally Visualized and interpreted (sr)
Echo: Report Reviewed by me
Labs: Labs Reviewed by me
--- NOTE | 2023-07-16 10:01 | W.PN.HOSP.TC ---
Today's Communication/Plan
-
PT/OT eval
discharge planning
Assessment / Plan
Assessment / Plan
MRI brain: MANY ACUTE ISCHEMIC INFARCTS in the LEFT CEREBRAL HEMISPHERE MIDDLE CEREBRAL ARTERY TERRITORY involving cortical roper matter in the left frontal lobe, left parietal lobe, and superior left occipital lobe (including a 2.5 cm acute ischemic
infarct in the left frontal lobe precentral gyrus). Mild to moderate white matter leukoaraiosis in the frontal and parietal lobes. Mild paranasal sinus mucosal disease.
MRA: Short segment of nonocclusive dissection and mural thrombus involving the proximal left internal carotid artery extending over approximately 1.9 cm in length. No additional focal hemodynamically significant stenosis, aneurysm or occlusion.
Vascular US: Left: Soft plaque is identified in the proximal and mid internal carotid artery. Carotid velocity profile is consistent with 50 to 69% stenosis. Vertebral artery flow is antegrade. Right: Soft plaque is identified in the proximal to
mid internal carotid artery. Carotid velocity measurements are consistent with less than 50% stenosis. Vertebral artery flow is antegrade.
CT-A: Short segment dissection of the proximal left internal carotid artery as seen on prior MR angiogram. Associated less than 50% narrowing of the internal carotid artery. There is also approximately 50% narrowing of the origin of the left
internal carotid artery secondary to noncalcified plaque.
Echo: Normal left ventricular size, wall thickness and systolic function. EF 62%. No significant valvular disease. Interatrial septum is intact with no evidence of shunting by 2D, color Doppler, and agitated saline bubble study.

Acute CVA involving L MCA area
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
-s/p Left carotid endarterectomy with bovine pericardial patch angioplasty on 07/14
-Vascular surgery cleared for discharge
-Neurology evaluated and recommended to be maintained on aspirin and Eliquis moving forward.
-Repeat PT evaluation ordered -acute rehab versus home discharge based on physical therapy finding
Paroxysmal AFib
- new dx this admission
- [id number] VASC score of 4 and will be 5 when he turns 64 in 1 year (HTN, CVA, and DM)
- to be maintain on eliquis 5mg BID at discharge.
Cervical disc herniation
Neck pain
- MRI C spine: MODERATE-SIZED MULTILEVEL DISC HERNIATIONS throughout the cervical spine. MODERATE SPINAL CORD COMPRESSION and CENTRAL CANAL STENOSIS at C3/C4, C4/C5, and C5/C6. Mild spinal cord compression and central canal stenosis at C2/C3.
Moderate discogenic degenerative disease at C5/C6. Severe right neural foraminal narrowing at C5/C6. Large 2.4 cm left lobe thyroid nodule.
- Lyrica 25mg BID for pain relief
- discussed results with Neurosurgery; they will evaluate patient outpatient as cannot consider surgery currently with acute CVA.
New diagnosed type 2 DM
-Hbga1c of 6.8
- dietary eval and consumer educator
- continue SSI
- continue Metformin renally dosed
Essential Hypertension
-Blood pressure controlled with amlodipine.
CKD stage IIIb
-Nephrology following and help appreciated
-Patient SPENCER/ARB to be held moving forward
DVT ppx: SCDs
Code: Full
Anticipated Discharge: Within 24 hours
Subjective/Interval History
-
Date of Service: July 16, 2023
some left side neck discomfort
denies dizziness
RLE weakness improved. no other issues.
Objective Data
-
Labs:
Laboratory Results
07/16/23
03:32
WBC 11.2 H
Hgb 11.7 L
Hct 33.3 L
Plt Count 224
PT 14.5
INR 1.14
APTT 33.9
Sodium 137
Potassium 5.0
Chloride 108 H
Carbon Dioxide 22
BUN 35 H
Creatinine 1.9 H
Glucose 130 H
Calcium 8.3 L
Vital Signs:
Vital Signs
Temp Pulse Resp BP Pulse Ox
98.2 F 64 12 112/63 94
07/16/23 07:44 07/16/23 08:30 07/16/23 08:30 07/16/23 08:09 07/16/23 08:30
I&O
07/15/23 07/16/23 07/17/23
06:59 06:59 06:59
Intake Total 1611 / 1611 3931 / 4020 169 / 169
Output Total 1999
Balance 1611 / 1611 1930 / 2019 169 / 169
Review of Systems
-
Respiratory: Reports No Symptoms
Cardiac: Reports No Symptoms
Abdomen/GI: Reports No Symptoms
Physical Exam
-
General: No Apparent Distress
HEENT: Oxygen (1 L NC)
Respiratory: Negative Wheezes or Rales
Cardiac: Regular Rhythm and S1/S2; Negative Murmur
GI: Soft and Nontender
Genito-urinary: No Costovertebral Tender
Musculoskeletal: No Edema
Neuro: AO x 3
Hematologic / Lymphatic: No Lymphadenopathy
Psych: Calm
[2023-07-16] MEDS: LYRICA 25 MG PO ×2 (10:12→19:55)
--- NOTE | 2023-07-16 10:29 | PTCARENOTE ---
As per Dr [facility], D/C Ally and IVF, Ally removed pressure held, pressure dressing applied, awaiting PT/OT
--- NOTE | 2023-07-16 11:32 | PTCARENOTE ---
Assist x1 to OOB, PT with steady but slow gait, call cruz in reach, family at bedside
[2023-07-16 11:58] LABS: Glucose - Point of Care 142 mg/dl (70-99)
--- NOTE | 2023-07-16 12:46 | PTCARENOTE ---
PT remains OOB in chair with family at bedside, no complaints at this time, assessment remains unchanged
--- NOTE | 2023-07-16 16:06 | PTCARENOTE ---
Pt received as transfer from ICU into 2102. Pt able to stand and pivot to chair, but only spent 30 min there before becoming tired and wanted to get into bed. Pt is alert/oriented/pleasant/NAD. L neck wound well approximated, no drainage or
swelling noted.
[2023-07-16 17:33] LABS: Glucose - Point of Care 140 mg/dl (70-99)
[2023-07-16] MEDS: LIPITOR 80 MG PO (17:44)
[2023-07-16] MEDS: GLUCOPHAGE 500 MG PO (17:44)
[2023-07-16] MEDS: ELIQUIS 5 MG PO (19:55)
[2023-07-16] MEDS: SENOKOT 8.59999999999999964 MG PO (20:39)
[2023-07-16 21:24] LABS: Glucose - Point of Care 148 mg/dl (70-99)
[2023-07-17 03:00] VITALS: BP 121/67
[2023-07-17 03:11] LABS: Glucose - Point of Care 116 mg/dl (70-99)
[2023-07-17 04:47] VITALS: BMI 25.6
[2023-07-17 06:33] LABS: Blood Urea Nitrogen 39 mg/dl (9-20); Calcium 8.9 mg/dl (8.4-10.2); Carbon Dioxide 27 mmol/L (22-30); Chloride 103 mmol/L (98-107); Estimated Creatinine Clearance 35 ml/min; Glucose 94 mg/dl (70-99); Potassium 4.6 mmol/L (3.5-5.1); Sodium 141 mmol/L (135-145); eGFR 38.91
[2023-07-17 07:00] VITALS: BP 105/59
[2023-07-17 07:37] LABS: Glucose - Point of Care 134 mg/dl (70-99)
[2023-07-17] MEDS: NOVOLOG FLEXPEN-LOW RESISTANCE SC ×2 (07:41→12:57)
--- NOTE | 2023-07-17 07:46 | W.PN.CD ---
Today's Communication / Plan
-
- S/p CEA. How long does he require ASA?
- no cardiac contraindication to discharge
- MEDS: ASA 81, Eliquis 5 po BID, amlodipine 5 po qd.
- Follow up: July 25 (in 'Discharge' section)
Impression / Plan
-
63M with hypertension and new onset DM admitted with subacute ischemic stroke in the left MCA territory. He has BOTH atrial fibrillation and carotid stenosis.
CVA
- AF -> apixaban
- Carotid disease -> S/p CEA. How long does he require ASA?
HTN: stable on meds, continue.
Dyslipidemia:
-now on high-intensity statin, Lipitor 80mg QHS.
-untreated LDL 168 on 07/10/23.
DM:
-hgba1C 6.8
-new diagnosis, management per primary
Abnormal renal function:
Dispo
- no cardiac contraindication to discharge
- MEDS: ASA 81, Eliquis 5 po BID, amlodipine 5 po qd.
- Follow up: July 25 (in 'Discharge' section)
Subjective: no CP, palps, or dyspnea. Mild pain at surgical site.
Physical Exam
Vital Signs/Labs
Vital Signs
Temp Pulse Resp BP Pulse Ox
36.9 C 86 18 121/67 94
07/17/23 03:00 07/17/23 03:00 07/16/23 23:20 07/17/23 03:00 07/17/23 03:00
07/16/23 07/17/23 07/18/23
06:59 06:59 06:59
Actual Weight 159 lb 9.835 oz 158 lb 7 oz
07/16/23 03:32
07/17/23 04:44
PT 14.5 Sec (11.4-14.6) 07/16/23 03:32
INR 1.14 07/16/23 03:32
APTT 33.9 Sec (23.4-35.0) 07/16/23 03:32
Magnesium 2.1 mg/dl (1.6-2.3) 07/10/23 05:24
Triglycerides 244 mg/dl (10-149) H 07/10/23 05:24
LDL Cholesterol, Calc 168 mg/dl 07/10/23 05:24
VLDL Cholesterol, Calc 48 mg/dl (0-30) H 07/10/23 05:24
HDL Cholesterol 37 mg/dl 07/10/23 05:24
Physical Exam
Constitutional: No acute distress
EENT: Anicteric
Cardiovascular: Rhythm & rate is regular, Pedal edema is absent, Systolic murmur absent and Diastolic murmur absent
Respiratory: Respiratory effort normal
GI: Soft, Distention absent, Non tender and Normal bowel sounds
Neuro/Psych: Alert and Oriented
Data Reviewed
-
Date of Service: July 17, 2023
EKG: Other (tele normal)
[2023-07-17] MEDS: LYRICA 25 MG PO (08:37)
[2023-07-17] MEDS: ROCALTROL 0.25 MCG PO (08:38)
[2023-07-17] MEDS: LOW STRENGTH ASPIRIN 81 MG PO (08:38)
[2023-07-17] MEDS: NORVASC 5 MG PO (08:38)
[2023-07-17] MEDS: ELIQUIS 5 MG PO (08:38)
[2023-07-17] MEDS: LIDOCAINE 4% PATCH 1 PATCH TOPICAL (08:42)
--- NOTE | 2023-07-17 10:14 | W.PN.VS ---
Today's Communication / Plan
-
See below.
Assessment/Plan
-
Status post left carotid endarterectomy
Plan:
From a vascular surgical perspective would recommend continuing aspirin 81 mg p.o. daily indefinitely unless contraindicated
Will have patient follow-up in office in roughly 2 weeks, we will leave follow-up appointment and discharge instructions
We will sign off, please call with questions or concerns
Subjective Data
-
Date of Service: July 17, 2023
Patient seen and examined, offers no complaints. Reports continued improvement in presenting right sided weakness. Denies difficulty with p.o. intake/swallowing.
Objective Data
-
Vital Signs
Temp Pulse Resp BP Pulse Ox
98.4 F 67 16 105/59 96
07/17/23 07:00 07/17/23 08:38 07/17/23 07:00 07/17/23 08:38 07/17/23 07:00
Intake and Output
07/16/23 07/17/23 07/18/23
06:59 06:59 06:59
Intake Total 3931 / 4020 2068 / 2068
Output Total 1999 650 / 650
Balance 1930 / 2019 1419 / 1419
Intake:
Oral fluids 1080 / 1080 1740 / 1740
IV fluids (Total) 2851 / 2940 329 / 329
Lr 1,000 ml @ 80 mls/hr IV . 1600 / 1680 320 / 320
[id number] PILY Rx#:[id number]
NSS Bolus 1000 / 1000
Bobby 251 / 260
Output:
Urine, Voided 1999 650 / 650
Other:
Number of approximated LARGE 1
amounts of urine
Lab Results
07/16/23 03:32
07/17/23 04:44
Calcium 8.9 mg/dl (8.4-10.2) 07/17/23 04:44
Magnesium 2.1 mg/dl (1.6-2.3) 07/10/23 05:24
Total Bilirubin 0.5 mg/dl (0.2-1.3) 07/09/23 22:44
AST 27 U/L (17-59) 07/09/23 22:44
ALT 22 U/L (0-50) 07/09/23 22:44
Alkaline Phosphatase 108 U/L (38-126) 07/09/23 22:44
Total Protein 8.2 g/dl (6.3-8.2) 07/09/23 22:44
Albumin 4.5 g/dl (3.5-5.0) 07/09/23 22:44
Physical Exam
-
AAOx3, no apparent distress
Left neck CDI, no evidence hematoma, all surrounding compartments soft
No tachycardia
No dyspnea on room air
[2023-07-17 11:00] VITALS: BP 113/59
[2023-07-17 11:43] LABS: Glucose - Point of Care 129 mg/dl (70-99)
[2023-07-17 12:59] VITALS: BP 103/51; PULSE 70
[2023-07-17] MEDS: ULORIC PO (13:53)
--- NOTE | 2023-07-17 13:55 | CM ---
Patient has been medically cleared for discharge to home with no additional skilled services. Patient with no insurance. [facility] for [facility]. MD spoke with family who are willing to care for patient in
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 Instructed to contact [facility] should he have needs after discharge. Family will transport home.
--- NOTE | 2023-07-17 14:09 | W.PN.HOSP.TC ---
Today's Communication/Plan
-
d/c home
Assessment / Plan
Assessment / Plan
MRI brain: MANY ACUTE ISCHEMIC INFARCTS in the LEFT CEREBRAL HEMISPHERE MIDDLE CEREBRAL ARTERY TERRITORY involving cortical roper matter in the left frontal lobe, left parietal lobe, and superior left occipital lobe (including a 2.5 cm acute ischemic
infarct in the left frontal lobe precentral gyrus). Mild to moderate white matter leukoaraiosis in the frontal and parietal lobes. Mild paranasal sinus mucosal disease.
MRA: Short segment of nonocclusive dissection and mural thrombus involving the proximal left internal carotid artery extending over approximately 1.9 cm in length. No additional focal hemodynamically significant stenosis, aneurysm or occlusion.
Vascular US: Left: Soft plaque is identified in the proximal and mid internal carotid artery. Carotid velocity profile is consistent with 50 to 69% stenosis. Vertebral artery flow is antegrade. Right: Soft plaque is identified in the proximal to
mid internal carotid artery. Carotid velocity measurements are consistent with less than 50% stenosis. Vertebral artery flow is antegrade.
CT-A: Short segment dissection of the proximal left internal carotid artery as seen on prior MR angiogram. Associated less than 50% narrowing of the internal carotid artery. There is also approximately 50% narrowing of the origin of the left
internal carotid artery secondary to noncalcified plaque.
Echo: Normal left ventricular size, wall thickness and systolic function. EF 62%. No significant valvular disease. Interatrial septum is intact with no evidence of shunting by 2D, color Doppler, and agitated saline bubble study.

Acute CVA involving L MCA area
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
-s/p Left carotid endarterectomy with bovine pericardial patch angioplasty on 07/14
-Vascular surgery cleared for discharge
-Neurology evaluated and recommended to be maintained on aspirin and Eliquis moving forward.
-Repeat PT evaluation ordered -acute rehab versus home discharge based on physical therapy finding
Paroxysmal Atrial fibrillation
- new dx this admission
- [id number] VASC score of 4 and will be 5 when he turns 64 in 1 year (HTN, CVA, and DM)
- to be maintain on Eliquis 5mg BID at discharge.
Cervical disc herniation
Neck pain
- MRI C spine: MODERATE-SIZED MULTILEVEL DISC HERNIATIONS throughout the cervical spine. MODERATE SPINAL CORD COMPRESSION and CENTRAL CANAL STENOSIS at C3/C4, C4/C5, and C5/C6. Mild spinal cord compression and central canal stenosis at C2/C3.
Moderate discogenic degenerative disease at C5/C6. Severe right neural foraminal narrowing at C5/C6. Large 2.4 cm left lobe thyroid nodule.
- Lyrica 25mg BID for pain relief
- discussed results with Neurosurgery; they will evaluate patient outpatient as cannot consider surgery currently with acute CVA.
New diagnosed type 2 DM
-Hbga1c of 6.8
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
- continue SSI
- continue Metformin renally dosed
Essential Hypertension
-Blood pressure controlled with amlodipine.
CKD stage IIIb
-Nephrology following and help appreciated
-Patient SPENCER/ARB to be held moving forward
DVT ppx: SCDs
Code: Full
Patient does not have insurance coverage and MA application pending. Discussed with CM and may take 2-3 weeks before approval. Discussed this with family and patient will be going home. Family is considering to fly patient back to [facility] in few
weeks.
Anticipated Discharge: Today
Subjective/Interval History
-
Date of Service: July 17, 2023
no issues overnight
denies of problems
Objective Data
-
Labs:
Laboratory Results
07/17/23
04:44
Sodium 141
Potassium 4.6
Chloride 103
Carbon Dioxide 27
BUN 39 H
Creatinine 1.9 H
Glucose 94
Calcium 8.9
Vital Signs:
Vital Signs
Temp Pulse Resp BP Pulse Ox
98.1 F 77 18 113/59 96
07/17/23 11:00 07/17/23 11:00 07/17/23 11:00 07/17/23 11:00 07/17/23 11:00
I&O
07/16/23 07/17/23 07/18/23
06:59 06:59 06:59
Intake Total 3931 / 4020 2068 / 2068
Output Total 1999 650 / 650
Balance 1930 1419 / 1419
Review of Systems
-
Respiratory: Reports No Symptoms
Cardiac: Reports No Symptoms
Abdomen/GI: Reports No Symptoms
Physical Exam
-
General: No Apparent Distress
HEENT: Other (Left neck surgical scar); Negative Oxygen
Respiratory: Clear to Auscultation
Cardiac: Regular Rhythm and S1/S2; Negative Murmur
GI: Soft, Nontender and Nondistended
Musculoskeletal: No Edema
Neuro: AO x 3
Psych: Calm
--- NOTE | 2023-07-17 14:37 | W.PN.NEPH.PH ---
Today's Communication / Plan
-
s/o
Assessment/Plan
-
Assessment:
RUE weakness -- found to have many acute left ischemic infarcts
T2DM
HTN
CKD 3B (bl Cr 1.9)
left carotid artery dissection
Plan:
Cr stable for many days
off IVF and maintaining pressures/Cr
good UOP per patinet
leave off losartan for now given current BPs, can be restarted as OP
Plan for d/c home today. Nephrology will sign off
-
-
Date of Service: July 17, 2023
CC / HPI / ROS
-
Chief Complaint:
CKD3/ANNA
History of Present Illness:
Cr down to 1.9
BP stable off pressors
s/p left CEA
eating
Review of Systems:
no CP/SOB
Labs
-
Labs:
WBC 11.2 10^3/uL (4.8-10.8) H 07/16/23 03:32
RBC 3.97 10^6/uL (4.70-6.10) L 07/16/23 03:32
Hgb 11.7 g/dL (13.0-18.0) L 07/16/23 03:32
Hct 33.3 % (39.0-52.0) L 07/16/23 03:32
Plt Count 224 10^3/uL (130-400) 07/16/23 03:32
Sodium 141 mmol/L (135-145) 07/17/23 04:44
Potassium 4.6 mmol/L (3.5-5.1) 07/17/23 04:44
Chloride 103 mmol/L (98-107) 07/17/23 04:44
Carbon Dioxide 27 mmol/L (22-30) 07/17/23 04:44
BUN 39 mg/dl (9-20) H 07/17/23 04:44
Creatinine 1.9 mg/dL (0.7-1.3) H 07/17/23 04:44
eGFR 38.91 07/17/23 04:44
Glucose 94 mg/dl (70-99) 07/17/23 04:44
Calcium 8.9 mg/dl (8.4-10.2) 07/17/23 04:44
Albumin 4.5 g/dl (3.5-5.0) 07/09/23 22:44
Physical Exam
-
Vital Signs:
Vital Signs
Temp Pulse Resp BP Pulse Ox
98.1 F 77 18 113/59 96
07/17/23 11:00 07/17/23 11:00 07/17/23 11:00 07/17/23 11:00 07/17/23 11:00
Cardiovascular:: Regular rate and rhythm
Respiratory:: Bilateral: CTA
Lung Excursion:: Normal
Abdomen:: Nontender and Soft
Bowel Sounds:: Normal
Extremity Edema:: None: Bilateral:
Elias Catheter: No
[2023-07-17 15:00] VITALS: BP 105/55
--- NOTE | 2023-07-18 07:46 | W.DCSUMMARY ---
Discharge Summary
Discharge Data
Date of Admission: 07/11/23
Date of Discharge: 07/17/23
-
Pending Results: No
Hospital Course
Discharging Physician : Dr Marty Meng
Disposition : Home
Primary care physician : Unknown
Principal Discharge diagnosis :
Left middle cerebral artery area stroke
Left proximal carotid artery dissection with mural thrombus requiring endarterectomy and patch angioplasty
Paroxysmal atrial fibrillation, new diagnosis
Type 2 diabetes mellitus, new diagnosis
Cervical disc herniation
Chronic Discharge diagnosis :
Essential hypertension cervical disc herniation
Chronic kidney disease stage IIIb
Hospital Course :
Patient is a 63-year-old male with above-mentioned past medical history came to ER for having new onset of right sided weakness. Patient woke up with right-sided weakness symptoms and symptoms are predominantly more in right arm than leg.
Patient was evaluated by neurology in ER and was concern of having new CVA. As patient woke up with symptoms deemed not a candidate for any thrombolytic therapy. Patient was started on dual antiplatelet therapy. A follow-up MRI brain was done
which showed a left cerebral hemisphere MCA CVA. Patient multiple punctate stroke and concern of this being cardioembolic in nature. Cardiology was involved in care and patient was monitored on telemetry. Patient was noted to having brief runs of
paroxysmal A-fib and based on risk assessment patient was started on Eliquis. Patient had follow-up MRI which showed a short segment of nonocclusive dissection and moral thrombus involving left proximal internal carotid artery. Vascular surgery
was involved in care and patient had a follow-up CTA confirming findings. Vascular surgery discussed with patient and family and was taken to the OR where patient underwent left carotid endarterectomy and bovine pericardial patch angioplasty.
Postprocedure patient was monitored in ICU and did not have any complication. At discharge patient was sent on regimen of aspirin and Eliquis. Patient was deemed appropriate for acute rehab although patient does not have insurance coverage and
family chose patient to take home.
Patient also had MRI C-spine spine which showed moderate-sized disc herniation and moderate spinal cord compression with central canal stenosis. Neurosurgery recommended a follow-up in office on outpatient basis and is not a candidate for any
emergent surgery.
Patient also had diagnosis of new diabetes and was admitted management sliding scale. Discharge patient was provided renally adjusted metformin.
Important imaging findings :
None
Procedure findings :
None
Discharge Plan
-
Patient Disposition: Home (Routine Discharge)
Discharge Diagnosis/Procedures: CVA, Linq implant
Condition: Fair
Diet: Low Cholesterol
Activity: No strenuous activity
Driving Restrictions: Not until seen by your Dr
Bathing Restrictions: OK to Shower
Activity Restrictions/Additional Instructions:
If you experience severe constant headache, weakness to an arm or leg, change in vision, trouble speaking or any stroke-like symptom, call 911 immediately
If you experience swelling, increased bruising, drainage from neck site, or fever, please call the office
Stand Alone Forms: DC Inst - Implanted Device, DC Instr - Vascular OR
Referrals:
[facility] [Provider Group] - 07/26/23 10:40 am (Incision check appointment for Linq recorder)
Praveena Cordoba PA-C [Specified Professional Personl] - 07/31/23 9:30 am (Vascular follow up)
NONE,* [Family Provider] -
Michael Martinez MD [Active] -
Additional Discharge Medication Instructions: STOP telmisartan.
Prescriptions:
New
atorvastatin 40 mg Tablet
80 mg PO QPM Qty: 30 0RF
metformin 500 mg Tablet
500 mg PO QPM Qty: 30 2RF
aspirin [Children's Aspirin] 81 mg Tablet,Chewable
81 mg PO DAILY Qty: 30 0RF
Eliquis 5 mg Tablet
5 mg PO BID 30 Days Qty: 60 0RF
amlodipine 5 mg Tablet
5 mg PO DAILY Qty: 30 1RF
tramadol 50 mg tablet
50 mg PO Q8H PRN (Reason: Mod sev pain) Qty: 14 0RF
Continued
calcitriol 0.25 mcg Capsule
0.25 mcg PO DAILY
calcium carbonate-vitamin D3 [Calcium 500 + D] 500 mg-5 mcg (200 unit) Tablet
1 tab PO DAILY
febuxostat 40 mg Tablet
40 mg PO DAILY
Discontinued
telmisartan-amlodipine 40-5 mg Tablet
1 tab PO DAILY
Discharge Orders:
Discharge Patient (As Directed); Ordered 07/17/23
Ordered By: Marty Meng
Discharge Date and Time
Discharge Date/Time: 07/17/23 17:29
Print Language: SCOTTISH
== END 2023-07-17 17:29 | disposition home or self-care (01) | DRG 37 ==
LOC: 2 SOUTH 08:05
PROVIDERS: Emergency Medicine; Internal Medicine; Nurse Practitioner; Physician Assistant Medical; Specialist; ADMITTING PHYSICIAN Hospitalist; ATTENDING PHYSICIAN Hospitalist; CONSULT PHYSICIAN Psychiatry & Neurology Neurology; CONSULT PHYSICIAN Student in an Organized Health Care Education/Training Program; EMERGENCY PHYSICIAN Emergency Medicine; OTHER PHYSICIAN Internal Medicine Critical Care Medicine; OTHER PHYSICIAN Physical Medicine & Rehabilitation; OTHER PHYSICIAN Surgery Vascular Surgery
PROC: 03CJ0ZZ Extirpation of Matter from Left Common Carotid Artery, Open Approach (ICD-10-PCS; 2023-07-15)
PROC: 03UJ0KZ Supplement Left Common Carotid Artery with Nonautologous Tissue Substitute, Open Approach (ICD-10-PCS; 2023-07-15)
PROC: 03UL0KZ Supplement Left Internal Carotid Artery with Nonautologous Tissue Substitute, Open Approach (ICD-10-PCS; 2023-07-15)
PROC: 03CL0ZZ Extirpation of Matter from Left Internal Carotid Artery, Open Approach (ICD-10-PCS; 2023-07-15)
DX: I63.032 Cerebral infarction due to thrombosis of left carotid artery (principal); I63.512 Cerebral infarction due to unspecified occlusion or stenosis of left middle cerebral artery; I77.71 Dissection of carotid artery; G81.91 Hemiplegia, unspecified affecting right dominant side; I47.10 Supraventricular tachycardia, unspecified; M50.01 Cervical disc disorder with myelopathy, high cervical region; M50.021 Cervical disc disorder at C4-C5 level with myelopathy; M50.022 Cervical disc disorder at C5-C6 level with myelopathy; N17.9 Acute kidney failure, unspecified; E04.1 Nontoxic single thyroid nodule; E66.9 Obesity, unspecified; I48.0 Paroxysmal atrial fibrillation; D64.9 Anemia, unspecified; N18.32 Chronic kidney disease, stage 3b; E78.00 Pure hypercholesterolemia, unspecified; I12.9 Hypertensive chronic kidney disease with stage 1 through stage 4 chronic kidney disease, or unspecified chronic kidney disease; M10.9 Gout, unspecified; E11.22 Type 2 diabetes mellitus with diabetic chronic kidney disease; M48.02 Spinal stenosis, cervical region; Z60.3 Acculturation difficulty; Z87.891 Personal history of nicotine dependence; Z87.440 Personal history of urinary (tract) infections; Z68.25 Body mass index [BMI] 25.0-25.9, adult; Z59.7 Insufficient social insurance and welfare support
CPT/HCPCS: 88304; 88311; 35301; 70450; 70496; 70498; 70544; 70548; 70551; 71045; 72156; 80048; 80053; 80061; 81003; 82570; 82962; 83036; 83735; 84300; 84484; 85025; 85027; 85610; 85730; 92610; 93005; 93306; 93880; 95938; 95941; 95955; 97110; 97112; 97116; 97168; 97530; 97535; 99285; A9575; A9585; Q9967